=== PATIENT | female | born 1990 | race Caucasian/White ===

== ENCOUNTER 2019-10-20 13:51 | Emergency (ER) | payer SELFPAY ==
[~2019-10-20 13:51] MED LIST: KETAMINE HCL 500 MG/5 ML VIAL ONE
[2019-10-20] MEDS ORDERED: NA CHLORIDE 0.9% 1,000 ML ONE ×2 (14:16→16:45)
[2019-10-20] MEDS ORDERED: LORazepam 2 MG/ML VIAL ONE ×2 (14:32→14:43)
[2019-10-20 14:34] LABS: Absolute Lymphocytes (CBC) 2.2 K/uL (0.7-4.9); Basophils % 0.8 % (0-1.3); Hematocrit 42.5 % (36.0-45.0); Lymphocytes % 16.5 % (15.3-44.8); MPV 7.8 fL (7.6-11.3); RBC Red Blood Cell Count 4.82 M/uL (3.86-4.86)
[2019-10-20 14:38] LABS: Protime INR 1.28
[2019-10-20] MEDS ORDERED: HALOPERIDOL LACT 5 MG/ML INJ ONE (14:43)
[2019-10-20] MEDS ORDERED: DIPHENHYDRAMINE 50 MG/ML VIAL ONE (14:44)
[2019-10-20 15:32] LABS: ALT/SGPT 27 U/L (12-78); AST/SGOT 23 U/L (15-37); Albumin 4.3 g/dL (3.4-5.0); Alkaline Phosphatase 100 U/L (45-117); BUN Blood Urea Nitrogen 14 mg/dL (7-18); Bicarbonate 22 mmol/L (21-32); Bilirubin Direct 0.2 mg/dL (0-0.2); Bilirubin Total 0.9 mg/dL (0.2-1.0); Glucose Level 101 mg/dL (74-106); Potassium 3.4 mmol/L (3.5-5.1); Protein, Total 7.8 g/dL (6.4-8.2); Sodium Level 142 mmol/L (136-145)
--- NOTE | 2019-10-20 15:35 | EKG ---
Test Date: 2019-10-20 Test Time: 14:04:32 Rehab Physician: NETTA MEASUREMENT RESULTS: Intervals: Rate: 135 MI: 146 QRSD: 78 QT: 294 QTc: 441 [place]ila: P: 81 MI: 146 QRS: 70 T: 50 INTERPRETIVE STATEMENTS: Sinus tachycardia Possible Left atrial enlargement Borderline ECG No previous ECG available for comparison Electronically Signed On 10-20-19 15:34:50 ADDRESSOGRAPH OPERATOR by Gagandeep Gonzalez
[2019-10-20 15:50] LABS: Barbiturates NEGATIVE (NEGATIVE); Benzodiazepines NEGATIVE (NEGATIVE); Cocaine NEGATIVE (NEGATIVE); METHAMPHETAM POSITIVE (NEGATIVE); Methadone NEGATIVE (NEGATIVE); Opiates NEGATIVE (NEGATIVE); Phencyclidine NEGATIVE (NEGATIVE); THC Cannibis POSITIVE (NEGATIVE)
[2019-10-20 18:18] LABS: Urine Blood TRACE (NEG); Urine Glucose NEGATIVE (NEG); Urine Protein 2+ (NEG); Urine Specific Gravity >1.030 (1.005-1.030)
--- NOTE | 2019-10-20 22:44 | ER ---
Nurse's Notes [facility] Name: Jewels Webber Age: 29 yrs Sex: Female : 1990 Arrival Date: 10/20/2019 Time: 14:04 Bed 3 Private MD: Diagnosis: Restlessness and agitation;Adverse effect of amphetamines;Drug intoxication Presentation: 10/20 14:07 Presenting complaint: EMS states: Was found walking around [place], taking off clothing, ph speaking incoherently, combative for EMS and PD, father reports that [facility], pt stated to EMS that she used an unknown substance that she "found" in a vial. Combative upon arrival. Transition of care: patient was not received from another setting of care. Onset of symptoms was October 20, 2019. Risk Assessment: Do you want to hurt yourself or someone else? Unable to obtain. Initial Sepsis Screen: Does the patient meet any 2 criteria? No. Patient's initial sepsis screen is negative. Does the patient have a suspected source of infection? No. Patient's initial sepsis screen is negative. Care prior to arrival: None. 14:07 Method Of Arrival: EMS: [place] [facility] ph 14:07 Acuity: DANIEL 2 ph INFORMATION TECHNOLOGY AUDITOR: 19:20 unable to obtain rr5 Historical: - Allergies: 14:14 No Known Drug Allergies; ph - PMHx: 14:14 Ovarian cyst; ph - Immunization history:: Adult Immunizations unknown. - Coronavirus screen:: The patient has NOT traveled to [place] in the past 14 days. The patient has NOT had contact with known/suspected case of Coronavirus?. - Social history:: Smoking status: unknown. - Ebola Screening: : No symptoms or risks identified at this time. Screenin:49 Abuse screen: Denies threats or abuse. Denies injuries from another. Nutritional ph screening: No deficits noted. Tuberculosis screening: No symptoms or risk factors identified. Fall Risk None identified. Assessment: 13:55 Reassessment: Pt combative, yelling, cursing, and attempting to punch ED staff, [place] ph PD at bedside, sedative administered IM, see MAR, pt placed in 4 point restraints. 14:00 General: Appears in no apparent distress. Behavior is agitated, anxious, combative, ph fussy, uncooperative. Pain: Unable to use pain scale. Does not appear to understand pain scale. Neuro: Level of Consciousness is awake, alert, Oriented to person. Cardiovascular: Capillary refill < 3 seconds in bilateral fingers Patient's skin is warm and dry. Rhythm is sinus tachycardia. Respiratory: Airway is patent Respiratory effort is even, unlabored, Respiratory pattern is regular, symmetrical. Derm: Skin is healthy with good turgor, is fragile, Skin is pink, warm \\T\\ dry. Musculoskeletal: Circulation, motion, and sensation intact. Range of motion: intact in all extremities. 14:35 Reassessment: Patient appears in no apparent distress at this time. Pt remains ph combative, attempting to remove restraints, ERP at bedside, additional medication ordered, see MAR. 14:45 Reassessment: Patient appears in no apparent distress at this time. Patient and/or ph family updated on plan of care and expected duration. Pain level reassessed. Father at bedside, states, " She was gone all night last night, today she was saying that she felt like she was going crazy." Denies of any known psychiatric hx, reports that [facility]. Pt remains combative after IV medication, attempting to slide to bottom of bed, removing EKG leads and BP cuff, attempting to remove wrist restraints, verbal order received for additional medications, see MAR. 15:00 Reassessment: Patient appears in no apparent distress at this time. Patient and/or ph family updated on plan of care and expected duration. Pain level reassessed. Pt more calm and cooperative, straight cathed to obtain urine for UDS, tolerated well, VS stable w/ HR decreased to 103, awaiting lab results, restraints remain in place, will continue to monitor. 15:50 Reassessment: Patient appears in no apparent distress at this time. Patient and/or ph family updated on plan of care and expected duration. Pain level reassessed. Pt asleep w/ equal and unlabored respirations, VSS, will continue to monitor. 16:27 Reassessment: Patient appears in no apparent distress at this time. No changes from ph previously documented assessment. Patient and/or family updated on plan of care and expected duration. Pain level reassessed. 17:44 Reassessment: Patient appears in no apparent distress at this time. No changes from ph previously documented assessment. Patient and/or family updated on plan of care and expected duration. Pain level reassessed. 19:06 Reassessment: Patient appears in no apparent distress at this time. No changes from ph previously documented assessment. Patient and/or family updated on plan of care and expected duration. Pain level reassessed. 19:20 General: Appears in no apparent distress. Behavior is quiet, not aggressive, resting rr5 eyes closed. awaiting to fully wake up, for discharge.. Pain: Unable to use pain scale. Patient appears quiet. Neuro: Level of Consciousness is respond to stimuli, drowsy. Cardiovascular: Capillary refill < 3 seconds Patient's skin is warm and dry. Respiratory: Airway is patent Respiratory effort is even, unlabored, Respiratory pattern is regular, symmetrical. GI: Abdomen is round non-distended. : unable to assess. EENT:. Derm: Skin is intact, is healthy with good turgor, is fragile, Skin is pink, warm \\T\\ dry. Musculoskeletal: Capillary refill < 3 seconds. 20:51 Reassessment: Patient appears in no apparent distress at this time. No changes from rr5 previously documented assessment. 21:35 Reassessment: Patient appears in no apparent distress at this time. No changes from rr5 previously documented assessment. patient is drowsy. vitally stable. 22:48 Reassessment: Patient appears in no apparent distress at this time. Patient and/or rr5 family updated on plan of care and expected duration. Pain level reassessed. Patient is alert, oriented x 3, equal unlabored respirations, skin warm/dry/pink. reassess by Zafar LEASE ADMINISTRATION SUPERVISOR, patient is awake alert, GCS 15/15, calm cooperative, vitally stable, patient verbalized no suicidal thoughts or want to hurt somebody. Ed provider with order for discharge. Mr hagan (father) spoke over the phone for patients transport. [phone]. 22:54 Reassessment: Patient appears in no apparent distress at this time. Patient is alert, rr5 oriented x 3, equal unlabored respirations, skin warm/dry/pink. discharge instruction given and explained without complaints made. assisted by patient's father for her ride home. Vital Signs: 14:12 BP 157 / 92; Pulse 127; Resp 14; Temp 98.9(TE); Pulse Ox 94% on R/A; Weight 77.11 kg; ph 15:05 BP 130 / 76; Pulse 107; Resp 14; Pulse Ox 97% on 2 lpm NC; ph 15:50 BP 130 / 83; Pulse 104; Resp 16; Pulse Ox 98% on 2 lpm NC; ph 16:28 BP 120 / 83; Pulse 98; Resp 16; Pulse Ox 99% on 2 lpm NC; ph 17:44 BP 132 / 87; Pulse 83; Resp 18; Pulse Ox 98% on 2 lpm NC; ph 18:45 BP 128 / 83; Pulse 88; Resp 18; Pulse Ox 97% on 2 lpm NC; ph 19:20 BP 127 / 71; Pulse 94; Resp 16; Temp 98.5; Pulse Ox 99% on 2 lpm NC; rr5 20:00 BP 116 / 85; Pulse 85; Resp 19; Pulse Ox 99% on 2 lpm NC; rr5 20:51 BP 125 / 76; Pulse 76; Resp 17; Pulse Ox 97% on 2 lpm NC; rr5 22:00 BP 121 / 70; Pulse 79; Resp 15; Pulse Ox 99% on 2 lpm NC; rr5 22:59 BP 126 / 79; Pulse 83; Resp 15; Temp 98; Pulse Ox 100% on R/A; rr5 Shayla Coma Score: 15:12 Eye Response: spontaneous(4). Verbal Response: confused(4). Motor Response: obeys jr8 commands(6). Total: 14. ED Course: 13:55 Inserted saline lock: 20 gauge in right hand, using aseptic technique. Line d/c by pt, ph bleeding controlled, IV appears intact. 14:04 Patient arrived in ED. bd 14:04 Jose Barlow PA is PHCP. jr8 14:04 Bao Cook MD is Attending Physician. jr8 14:05 Inserted saline lock: 20 gauge in left antecubital area, using aseptic technique. ph 14:06 Alie Mckeon, RN is Primary Nurse. ph 14:11 Triage completed. ph 14:55 Straight cath inserted, using sterile technique, 16 Fr. Specimen obtained. Returned ph rosi urine. Patient tolerated well. 15:49 Arm band placed on Patient placed in an exam room. ph 15:50 Patient has correct armband on for positive identification. Bed in low position. Side ph rails up X2. school bus monitor on. Pulse ox on. NIBP on. Lights dimmed. Warm blanket given. Head of bed lowered. 16:04 No provider procedures requiring assistance completed. ph 22:48 IV discontinued, intact, bleeding controlled, No redness/swelling at site. Pressure rr5 dressing applied. Restraints: 14:00 Violent/Self Destructive Restraint: Order: obtained. Initiated October 20, 2019 at ph 14:00 Staff present during the Initiation of Restraint: Alie Mckeon RN, Maria Eugenia Parry RN, Ayaz Lutz [facility], Jose LOPEZ. Observed actions/behavior: violent, severely aggressive, harming self/others, confusion/disorientation, difficulty remembering or follow instructions, impaired decision making, repeated attempts to get up from bed/chair without assistance. unable to follow instructions, rptd attempts to remove/tamper lines/tubes/IV/med devices \\T\\ wnd dressing, verbally abusive, Less restrictive alternatives attempted: placed near Nurse station, reoriented to location, verbal de-escalation performed, Alternative interventions: Ineffective. Monitoring: Mental status: agitated/restless, verbally abusive, Cognition: poor judgement, poor safety awareness, Impulsive, poor attention/concentration, unable to follow commands, Circulation: Within defined parameters (based on Cardiovascular assessment). Skin integrity: Within defined parameters (based on Integumentary assessment) No injuries due to Restraints noted. Restraint status: Side rails up x 4 Started. Soft wrist restraint (Right) Started. Soft wrist restraint (Left) Started. Soft ankle restraint (Right) Started. Soft ankle restraint (Left) Started. 14:15 Violent/Self Destructive Restraint: Observed actions/behavior: harming self/others, ph confusion/disorientation, difficulty remembering or follow instructions, impaired decision making, repeated attempts to get up from bed/chair without assistance. unable to follow instructions, rptd attempts to remove/tamper lines/tubes/IV/med devices \\T\\ wnd dressing, verbally abusive, Monitoring: Mental status: agitated/restless, confused. verbally abusive, Cognition: poor judgement, poor safety awareness, Impulsive, poor attention/concentration, unable to follow commands, Circulation: Within defined parameters (based on Cardiovascular assessment). Skin integrity: Within defined parameters (based on Integumentary assessment) No injuries due to Restraints noted. Restraint status: Side rails up x 4 Continued. Soft wrist restraint (Right) Soft wrist restraint (Left) Continued. Soft ankle restraint (Right) Continued. Soft ankle restraint (Left) Continued. Readiness for Discontinue: Criteria not met. Patient still violent/self destructive and Alternative interventions still ineffective. Restraint continued. 14:30 Violent/Self Destructive Restraint: Observed actions/behavior: harming self/others, ph confusion/disorientation, difficulty remembering or follow instructions, impaired decision making, repeated attempts to get up from bed/chair without assistance. unable to follow instructions, rptd attempts to remove/tamper lines/tubes/IV/med devices \\T\\ wnd dressing, verbally abusive, Monitoring: Mental status: agitated/restless, confused. verbally abusive, Cognition: poor judgement, poor safety awareness, Impulsive, poor attention/concentration, unable to follow commands, Circulation: Within defined parameters (based on Cardiovascular assessment). Skin integrity: Within defined parameters (based on Integumentary assessment) No injuries due to Restraints noted. Restraint status: Side rails up x 4 Soft wrist restraint (Right) Continued. Soft wrist restraint (Left) Continued. Soft ankle restraint (Right) Continued. Soft ankle restraint (Left) Continued. Readiness for Discontinue: Criteria not met. Patient still violent/self destructive and Alternative interventions still ineffective. Restraint continued. 14:45 Violent/Self Destructive Restraint: Observed actions/behavior: harming self/others, ph confusion/disorientation, difficulty remembering or follow instructions, impaired decision making, repeated attempts to get up from bed/chair without assistance. unable to follow instructions, rptd attempts to remove/tamper lines/tubes/IV/med devices \\T\\ wnd dressing, Less restrictive alternatives attempted: family at bedside, medicated for pain/anxiety, covered lines/tubes, verbal de-escalation performed, Alternative interventions: Ineffective. Monitoring: Cognition: poor judgement, poor safety awareness, Impulsive, poor attention/concentration, unable to follow commands, Circulation: Within defined parameters (based on Cardiovascular assessment). Skin integrity: Within defined parameters (based on Integumentary assessment) No injuries due to Restraints noted. Restraint status: Soft wrist restraint (Right) Continued. Soft wrist restraint (Left) Continued. Soft ankle restraint (Right) Continued. Soft ankle restraint (Left) Continued. Readiness for Discontinue: Criteria not met. Patient still violent/self destructive and Alternative interventions still ineffective. Restraint continued. 15:00 Violent/Self Destructive Restraint: Observed actions/behavior: ph confusion/disorientation, difficulty remembering or follow instructions, impaired decision making, repeated attempts to get up from bed/chair without assistance. unable to follow instructions, Less restrictive alternatives attempted: medicated for pain/anxiety, Monitoring: Cognition: poor safety awareness, poor attention/concentration, unable to follow commands, short term memory loss, Circulation: Within defined parameters (based on Cardiovascular assessment). Skin integrity: Within defined parameters (based on Integumentary assessment) No injuries due to Restraints noted. Range of Motion: Performed. Elimination/Hygiene: with urinary catheter, Restraint status: Soft wrist restraint (Right) Continued. Soft wrist restraint (Left) Continued. Soft ankle restraint (Right) Continued. Soft ankle restraint (Left) Continued. Readiness for Discontinue: Criteria not met. Patient still violent/self destructive and Alternative interventions still ineffective. Restraint continued. 15:15 Violent/Self Destructive Restraint: Observed actions/behavior: ph confusion/disorientation, difficulty remembering or follow instructions, impaired decision making, unable to follow instructions, Monitoring: Cognition: poor judgement, poor safety awareness, poor attention/concentration, unable to follow commands, short term memory loss, Circulation: Within defined parameters (based on Cardiovascular assessment). Skin integrity: Within defined parameters (based on Integumentary assessment) No injuries due to Restraints noted. Restraint status: Soft wrist restraint (Right) Continued. Soft wrist restraint (Left) Continued. Soft ankle restraint (Right) Continued. Soft ankle restraint (Left) Continued. Readiness for Discontinue: Criteria not met. Patient still violent/self destructive and Alternative interventions still ineffective. Restraint continued. 15:30 Violent/Self Destructive Restraint: Observed actions/behavior: ph confusion/disorientation, difficulty remembering or follow instructions, impaired decision making, unable to follow instructions, Monitoring: Cognition: poor judgement, poor safety awareness, poor attention/concentration, unable to follow commands, short term memory loss, Circulation: Within defined parameters (based on Cardiovascular assessment). Skin integrity: Within defined parameters (based on Integumentary assessment) No injuries due to Restraints noted. Restraint status: Readiness for Discontinue: Criteria not met. Patient still violent/self destructive and Alternative interventions still ineffective. Restraint continued. 15:45 Violent/Self Destructive Restraint: Observed actions/behavior: ph confusion/disorientation, difficulty remembering or follow instructions, impaired decision making, decreased Level of Consciousness (LOC), unable to follow instructions, Monitoring: Mental status: patient asleep, Circulation: Within defined parameters (based on Cardiovascular assessment). Skin integrity: Within defined parameters (based on Integumentary assessment) No injuries due to Restraints noted. Restraint status: Soft wrist restraint (Right) Continued. Soft wrist restraint (Left) Continued. Soft ankle restraint (Right) Continued. Soft ankle restraint (Left) Continued. Readiness for Discontinue: Criteria not met. Patient still violent/self destructive and Alternative interventions still ineffective. Restraint continued. 16:00 Violent/Self Destructive Restraint: Observed actions/behavior: ph confusion/disorientation, decreased Level of Consciousness (LOC), unable to follow instructions, Monitoring: Mental status: patient asleep, Circulation: Within defined parameters (based on Cardiovascular assessment). Skin integrity: Within defined parameters (based on Integumentary assessment) No injuries due to Restraints noted. Restraint status: Soft wrist restraint (Right) Continued. Soft wrist restraint (Left) Continued. Soft ankle restraint (Right) Continued. Soft ankle restraint (Left) Continued. Readiness for Discontinue: Criteria not met. Patient still violent/self destructive and Alternative interventions still ineffective. Restraint continued. 16:15 Violent/Self Destructive Restraint: Observed actions/behavior: ph confusion/disorientation, difficulty remembering or follow instructions, decreased Level of Consciousness (LOC), Monitoring: Mental status: patient asleep, Circulation: Within defined parameters (based on Cardiovascular assessment). Skin integrity: Within defined parameters (based on Integumentary assessment) No injuries due to Restraints noted. Restraint status: Soft wrist restraint (Right) Continued. Soft wrist restraint (Left) Continued. Soft ankle restraint (Right) Continued. Soft ankle restraint (Left) Continued. Readiness for Discontinue: Criteria not met. Patient still violent/self destructive and Alternative interventions still ineffective. Restraint continued. 16:30 Violent/Self Destructive Restraint: Observed actions/behavior: ph confusion/disorientation, decreased Level of Consciousness (LOC), Monitoring: Mental status: patient asleep, Circulation: Within defined parameters (based on Cardiovascular assessment). Skin integrity: Within defined parameters (based on Integumentary assessment) No injuries due to Restraints noted. Restraint status: Soft wrist restraint (Right) Continued. Soft wrist restraint (Left) Continued. Soft ankle restraint (Right) Continued. Soft ankle restraint (Left) Continued. Readiness for Discontinue: Criteria not met. Patient still violent/self destructive and Alternative interventions still ineffective. Restraint continued. 16:45 Violent/Self Destructive Restraint: Observed actions/behavior: ph confusion/disorientation, impaired decision making, decreased Level of Consciousness (LOC), Monitoring: Mental status: patient asleep, Circulation: Within defined parameters (based on Cardiovascular assessment). Skin integrity: Within defined parameters (based on Integumentary assessment) No injuries due to Restraints noted. Restraint status: Soft wrist restraint (Right) Continued. Soft wrist restraint (Left) Continued. Soft ankle restraint (Right) Continued. Soft ankle restraint (Left) Continued. Readiness for Discontinue: Criteria not met. Patient still violent/self destructive and Alternative interventions still ineffective. Restraint continued. 17:00 Violent/Self Destructive Restraint: Observed actions/behavior: ph confusion/disorientation, decreased Level of Consciousness (LOC), Monitoring: Mental status: patient asleep, Circulation: Within defined parameters (based on Cardiovascular assessment). Skin integrity: Within defined parameters (based on Integumentary assessment) No injuries due to Restraints noted. Restraint status: Soft wrist restraint (Right) Continued. Soft wrist restraint (Left) Continued. Soft ankle restraint (Right) Continued. Soft ankle restraint (Left) Continued. Readiness for Discontinue: Criteria not met. Patient still violent/self destructive and Alternative interventions still ineffective. Restraint continued. 17:15 Violent/Self Destructive Restraint: Observed actions/behavior: ph confusion/disorientation, decreased Level of Consciousness (LOC), Monitoring: Mental status: patient asleep, Circulation: Within defined parameters (based on Cardiovascular assessment). Skin integrity: Within defined parameters (based on Integumentary assessment) No injuries due to Restraints noted. Restraint status: Soft wrist restraint (Right) Continued. Soft wrist restraint (Left) Continued. Soft ankle restraint (Right) Continued. Soft ankle restraint (Left) Continued. 17:30 Violent/Self Destructive Restraint: Violent/Self Destructive Restraint: Monitoring: ph Mental status: patient asleep, Restraint status: Soft wrist restraint (Right) Discontinued. Soft wrist restraint (Left) Discontinued. Soft ankle restraint (Right) Discontinued. Soft ankle restraint (Left) Discontinued. Restraint discontinuation: Discontinued at October 20, 2019 at 17:30 Effective alternative interventions: decrease environmental stimuli, medicated for pain/anxiety. Administered Medications: 13:55 Drug: Ketamine 4 mg/kg Route: IM; Site: right vastus lateralis; ph 14:30 Follow up: Response: Anxiety decreased ph 17:30 Follow up: Response: No adverse reaction ph 14:18 Drug: NS 0.9% 1000 ml Route: IV; Rate: 1000 ml; Site: left antecubital; ll1 16:15 Follow up: Response: No adverse reaction; IV Status: Completed infusion; IV Intake: ph 1000ml 14:30 Drug: Ativan 2 mg Route: IVP; Site: left antecubital; ph 17:30 Follow up: Response: No adverse reaction ph 14:45 Drug: Ativan 2 mg Route: IVP; Site: left antecubital; ph 17:34 Follow up: Response: No adverse reaction ph 14:45 Drug: Haloperidol 5 mg Route: IVP; Site: left antecubital; ph 17:34 Follow up: Response: No adverse reaction; Patient is sedated ph 14:45 Drug: Benadryl 25 mg Route: IVP; Site: left antecubital; ph 17:34 Follow up: Response: No adverse reaction ph 16:50 Drug: NS 0.9% 1000 ml Route: IV; Rate: 1000 ml; Site: left antecubital; ph 20:20 Follow up: Response: No adverse reaction; IV Status: Completed infusion; IV Intake: rr5 1000ml Intake: 16:15 IV: 1000ml; Total: 1000ml. ph 20:20 IV: 1000ml; Total: 2000ml. rr5 Outcome: 22:42 Discharge ordered by MD. la1 22:57 Discharged to home ambulatory, with family. rr5 22:57 Condition: stable 22:57 Discharge instructions given to patient, Instructed on discharge instructions, follow up and referral plans. Demonstrated understanding of instructions, follow-up care. 23:00 Patient left the ED. rr5 Signatures: Gena Han Josh, PA PA jr8 Zafar Mcqueen, MEDICAL RESEARCH SCIENTIST-C MEDICAL RESEARCH SCIENTIST-Cla1 Alie Mckeon RN RN ph Rolly Goss RN RN rr5 Mady Parry RN RN ll1 Corrections: (The following items were deleted from the chart) 16:35 15:45 Violent/Self Destructive Restraint: Observed actions/behavior: ph confusion/disorientation, difficulty remembering or follow instructions, impaired decision making, unable to follow instructions, Monitoring: Cognition: poor judgement, poor safety awareness, poor attention/concentration, unable to follow commands, short term memory loss, Circulation: Within defined parameters (based on Cardiovascular assessment). Skin integrity: Within defined parameters (based on Integumentary assessment) No injuries due to Restraints noted. Restraint status: Soft wrist restraint (Right) Continued. Soft wrist restraint (Left) Continued. Soft ankle restraint (Right) Continued. Soft ankle restraint (Left) Continued. Readiness for Discontinue: Criteria not met. Patient still violent/self destructive and Alternative interventions still ineffective. Restraint continued. ph 17:43 15:00 Violent/Self Destructive Restraint: Observed actions/behavior: ph confusion/disorientation, difficulty remembering or follow instructions, impaired decision making, repeated attempts to get up from bed/chair without assistance. unable to follow instructions, Less restrictive alternatives attempted: medicated for pain/anxiety, Monitoring: Cognition: poor safety awareness, poor attention/concentration, unable to follow commands, short term memory loss, Circulation: Within defined parameters (based on Cardiovascular assessment). Skin integrity: Within defined parameters (based on Integumentary assessment) No injuries due to Restraints noted. Restraint status: Soft wrist restraint (Right) Continued. Soft wrist restraint (Left) Continued. Soft ankle restraint (Right) Continued. Soft ankle restraint (Left) Continued. Readiness for Discontinue: Criteria not met. Patient still violent/self destructive and Alternative interventions still ineffective. Restraint continued. ph 20:52 20:51 BP 125 / 276; Pulse 76bpm; Resp 17bpm; Pulse Ox 97% 7 lpm Nasal Cannula; rr5 rr5 23:00 20:51 BP 125 / 76; Pulse 76bpm; Resp 17bpm; Pulse Ox 97% 7 lpm Nasal Cannula; rr5 rr5
--- NOTE | 2019-10-20 22:44 | EDPHYS ---
Physician Documentation [facility] Name: Jewels Webber Age: 29 yrs Sex: Female : 1990 Arrival Date: 10/20/2019 Time: 14:04 Bed 3 Private MD: ED Physician Bao Cook HPI: 10/20 15:12 This 29 yrs old Female presents to ER via EMS with complaints of Altered jr8 Mental Status. 15:12 The patient presents with agitation, confusion, disorientation. Onset: The jr8 symptoms/episode began/occurred acutely, today. Possible causes: unknown. Associated signs and symptoms: The patient has no apparent associated signs or symptoms. Current symptoms: In the emergency department the patient's symptoms are unchanged from the initial presentation. Patient's baseline: Neuro: alert and fully oriented, Motor: no deficits, Ambulation: walks without assistance, Speech: normal. It is unknown whether or not the patient has had similar symptoms in the past. The patient has not recently seen a physician. EMS brought patient to hospital in custody with police for erratic violent behavior. Was found walking around on outside street undressing herself. Father stated that she has history of drug abuse in past. Stated that she was just released from jail after being in there for a year. Stated that she had told him recently that she feels different and is hearing things and feels "crazy:". . AUTHORS MOTIVATIONAL: 19:20 unable to obtain rr5 Historical: - Allergies: 14:14 No Known Drug Allergies; ph - PMHx: 14:14 Ovarian cyst; ph - Immunization history:: Adult Immunizations unknown. - Coronavirus screen:: The patient has NOT traveled to [place] in the past 14 days. The patient has NOT had contact with known/suspected case of Coronavirus?. - Social history:: Smoking status: unknown. - Ebola Screening: : No symptoms or risks identified at this time. ROS: 15:12 Unable to obtain ROS due to altered mental status. jr8 Exam: 15:12 Eyes: Pupils equal round and reactive to light, extra-ocular motions intact. Lids and jr8 lashes normal. Conjunctiva and sclera are non-icteric and not injected. Cornea within normal limits. Periorbital areas with no swelling, redness, or edema. ENT: Nares patent. No nasal discharge, no septal abnormalities noted. Tympanic membranes are normal and external auditory canals are clear. Oropharynx with no redness, swelling, or masses, exudates, or evidence of obstruction, uvula midline. Mucous membranes dry. Cardiovascular: Tachycardic with a normal S1 and S2. No gallops, murmurs, or rubs. Normal PMI, no JVD. No pulse deficits. Respiratory: Lungs have equal breath sounds bilaterally, clear to auscultation and percussion. No rales, rhonchi or wheezes noted. No increased work of breathing, no retractions or nasal flaring. Abdomen/GI: Soft, non-tender, with normal bowel sounds. No distension or tympany. No guarding or rebound. No evidence of tenderness throughout. Back: No spinal tenderness. No costovertebral tenderness. Full range of motion. Skin: Warm, dry with normal turgor. Normal color with no rashes, no lesions, and no evidence of cellulitis. MS/ Extremity: Pulses equal, no cyanosis. Neurovascular intact. Full, normal range of motion. 15:12 Neuro: Orientation: to person, Mentation: able to follow commands, inappropriate for stated age, Memory: immediate memory is intact, remote memory is impaired, recent memory is impaired, Cranial nerves: grossly normal, Motor: moves all fours, Sensation: no obvious gross deficits, seizure activity, is not displayed by the patient, Abnormal movements: there are no abnormal movements. 15:35 ECG was reviewed by the Attending Physician. jr8 Vital Signs: 14:12 BP 157 / 92; Pulse 127; Resp 14; Temp 98.9(TE); Pulse Ox 94% on R/A; Weight 77.11 kg; ph 15:05 BP 130 / 76; Pulse 107; Resp 14; Pulse Ox 97% on 2 lpm NC; ph 15:50 BP 130 / 83; Pulse 104; Resp 16; Pulse Ox 98% on 2 lpm NC; ph 16:28 BP 120 / 83; Pulse 98; Resp 16; Pulse Ox 99% on 2 lpm NC; ph 17:44 BP 132 / 87; Pulse 83; Resp 18; Pulse Ox 98% on 2 lpm NC; ph 18:45 BP 128 / 83; Pulse 88; Resp 18; Pulse Ox 97% on 2 lpm NC; ph 19:20 BP 127 / 71; Pulse 94; Resp 16; Temp 98.5; Pulse Ox 99% on 2 lpm NC; rr5 20:00 BP 116 / 85; Pulse 85; Resp 19; Pulse Ox 99% on 2 lpm NC; rr5 20:51 BP 125 / 76; Pulse 76; Resp 17; Pulse Ox 97% on 2 lpm NC; rr5 22:00 BP 121 / 70; Pulse 79; Resp 15; Pulse Ox 99% on 2 lpm NC; rr5 22:59 BP 126 / 79; Pulse 83; Resp 15; Temp 98; Pulse Ox 100% on R/A; rr5 Shayla Coma Score: 15:12 Eye Response: spontaneous(4). Verbal Response: confused(4). Motor Response: obeys jr8 commands(6). Total: 14. MDM: 14:04 Patient medically screened. 8 18:02 Data reviewed: vital signs, nurses notes, lab test result(s), EKG. Data interpreted: jr8 Pulse oximetry: on room air is 98 %. Interpretation: normal. Counseling: I had a detailed discussion with the patient and/or guardian regarding: the historical points, exam findings, and any diagnostic results supporting the discharge/admit diagnosis, lab results. Transition of care: After a detail discussion of the patient's case, care is transferred to Zafar TURK. ED course: Patient resting comfortably after being medicated to control agitation and acute psychosis. Patient had both TCH and Meth in UDS. Most likely stimulant associated acute psychosis. Will continue to be observed in ED for now. 22:45 ED course: pt now awake, alert, oriented x 4, denies HI/SI, reports that this kind of la1 episode has happened in the past. States she is sure its not from the amphetamines or THC, instructed to FU with neuro/psych. Strict return precautions given, no focal neurological deficits. . 10/20 14:05 Order name: Acetaminophen 10/20 14:05 Order name: Basic Metabolic Panel 10/20 14:05 Order name: CBC with Diff 10/20 14:05 Order name: ETOH Level 10/20 14:05 Order name: Hepatic Function 10/20 14:05 Order name: PT-INR 10/20 14:05 Order name: Ptt, Activated 10/20 14:05 Order name: Salicylate [facility] 10/20 14:05 Order name: Urine Drug Screen [facility] 10/20 14:35 Order name: CBC with Automated Diff; Complete Time: 15:08 [facility] 10/20 14:44 Order name: Protime (+INR); Complete Time: 15:08 [facility] 10/20 14:44 Order name: PTT, Activated Partial Thromb; Complete Time: 15:08 [facility] 10/20 14:57 Order name: Alcohol Serum/Plasma [facility] 10/20 15:04 Order name: Urine Dipstick--Ancillary (enter results) 10/20 15:04 Order name: Urine --Ancillary (enter results) 10/20 15:49 Order name: Basic Metabolic Panel; Complete Time: 17:50 [facility] 10/20 15:50 Order name: Liver (Hepatic) Function; Complete Time: 17:50 [facility] 10/20 15:51 Order name: Acetaminophen Level; Complete Time: 17:50 [facility] 10/20 15:53 Order name: Salicylates Level; Complete Time: 17:50 [facility] 10/20 15:54 Order name: Urine Drug Screen; Complete Time: 16:27 [facility] 10/20 18:20 Order name: Urine --Ancillary [facility] 10/20 18:20 Order name: Urine Dipstick-Ancillary [facility] 10/20 14:05 Order name: Urine Test (obtain specimen); Complete Time: 15:04 [facility] 10/20 14:05 Order name: EKG - Nurse/Tech; Complete Time: 14:18 [facility] 10/20 14:05 Order name: IV Saline Lock; Complete Time: 14:30 [facility] 10/20 14:05 Order name: Labs collected and sent; Complete Time: 14:30 [facility] 10/20 14:05 Order name: Urine Dipstick-Ancillary (obtain specimen); Complete Time: 15:04 [facility] 10/20 18:07 Order name: EKG Electrocardiogram EDVT EC:35 Rate is 135 beats/min. Rhythm is irregular, Sinus tachycardia with No ectopy. QRS [facility] is Normal. MA interval is normal at 146 msec. QRS interval is normal at 78 msec. QT interval is normal at 441 msec. No Q waves. T waves are Normal. No ST changes noted. Clinical impression: Sinus tachycardia and No evidence of ischemia. Interpreted by me. Reviewed by me. Administered Medications: 13:55 Drug: Ketamine 4 mg/kg Route: IM; Site: right vastus lateralis; ph 14:30 Follow up: Response: Anxiety decreased ph 17:30 Follow up: Response: No adverse reaction ph 14:18 Drug: NS 0.9% 1000 ml Route: IV; Rate: 1000 ml; Site: left antecubital; ll1 16:15 Follow up: Response: No adverse reaction; IV Status: Completed infusion; IV Intake: ph 1000ml 14:30 Drug: Ativan 2 mg Route: IVP; Site: left antecubital; ph 17:30 Follow up: Response: No adverse reaction ph 14:45 Drug: Ativan 2 mg Route: IVP; Site: left antecubital; ph 17:34 Follow up: Response: No adverse reaction ph 14:45 Drug: Haloperidol 5 mg Route: IVP; Site: left antecubital; ph 17:34 Follow up: Response: No adverse reaction; Patient is sedated ph 14:45 Drug: Benadryl 25 mg Route: IVP; Site: left antecubital; ph 17:34 Follow up: Response: No adverse reaction ph 16:50 Drug: NS 0.9% 1000 ml Route: IV; Rate: 1000 ml; Site: left antecubital; ph 20:20 Follow up: Response: No adverse reaction; IV Status: Completed infusion; IV Intake: rr5 1000ml Disposition: 19:13 Co-signature as Attending Physician, Bao Cook MD I agree with the assessment and kdr plan of care. Disposition: 10/20/19 22:42 Discharged to Home. Impression: Restlessness and agitation, Adverse effect of amphetamines, Drug intoxication. - Condition is Stable. - Discharge Instructions: Confusion, Stimulant Use Disorder-Methamphetamines. - Medication Reconciliation Form, Thank You Letter form. - Follow up: Private Physician; When: 1 - 2 days; Reason: Recheck today's complaints, Re-evaluation by your physician. Follow up: Emergency Department; When: As needed. - Problem is new. - Symptoms have improved. Signatures: Dispatcher [employer] EDMS Bao Cook MD MD kdr Roszak, Josh, PA PA jr8 Zafar Mcqueen, CHURN TENDER-C CHURN TENDER-Cla1 Alie Mckeon RN RN ph Rolly Goss RN RN rr5 Mady Parry RN RN ll1 Corrections: (The following items were deleted from the chart) 22:43 22:42 10/20/2019 22:42 Discharged to Home. Impression: Restlessness and agitation; la1 Adverse effect of amphetamines. Condition is Stable. Forms are Medication Reconciliation Form, Thank You Letter, Antibiotic Education, Prescription Opioid Use. Follow up: Private Physician; When: 1 - 2 days; Reason: Recheck today's complaints, Re-evaluation by your physician. Follow up: Emergency Department; When: As needed. Problem is new. Symptoms have improved. la1 23:00 22:43 10/20/2019 22:42 Discharged to Home. Impression: Restlessness and agitation; rr5 Adverse effect of amphetamines; Drug intoxication. Condition is Stable. Forms are Medication Reconciliation Form, Thank You Letter, Antibiotic Education, Prescription Opioid Use. Follow up: Private Physician; When: 1 - 2 days; Reason: Recheck today's complaints, Re-evaluation by your physician. Follow up: Emergency Department; When: As needed. Problem is new. Symptoms have improved. la1
[2019-10-20 23:27] VITALS: BP 126/79; TEMP 98; O2SAT 100
== END 2019-10-20 23:00 | disposition home or self-care (01) ==
LOC: ER 13:51
DX: R45.1 Restlessness and agitation (principal); T43.625A Adverse effect of amphetamines, initial encounter; T50.995A Adverse effect of other drugs, medicaments and biological substances, initial encounter
CPT/HCPCS: 36415; 51702; 80048; 80076; 80307; 80320; 80329; 81003; 81025; 85025; 85610; 85730; 93005; 96361; 96372; 96374; 96375; 99285; J1200; J1630; J7030

== ENCOUNTER 2020-01-18 18:13 | Emergency (ER) | payer SELFPAY ==
[2020-01-18] MEDS ORDERED: LORazepam 2 MG/ML VIAL ONE (18:30)
[2020-01-18] MEDS ORDERED: MIDAZOLAM HCL 2 MG/2 ML INJ ONE (18:42)
[2020-01-18] MEDS ORDERED: NA CHLORIDE 0.9% 2,000 ML ONE (18:42)
[2020-01-18 18:51] LABS: Absolute Lymphocytes (CBC) 2.5 K/uL (0.7-4.9); Basophils % 1.1 % (0-1.3); Hematocrit 42.4 % (36.0-45.0); Lymphocytes % 20.4 % (15.3-44.8); MPV 7.4 fL (7.6-11.3); RBC Red Blood Cell Count 4.88 M/uL (3.86-4.86)
[2020-01-18 19:02] LABS: Protime INR 1.34
--- NOTE | 2020-01-18 19:08 | RAD REPORT ---
EXAM DESCRIPTION: CT - Head Brain Wo Cont - 01/18/2020 6:59 pm CLINICAL HISTORY: AMS;Confused Headache, drowsiness COMPARISON: MAXILLOFACIAL W O CONTRAST dated 05/12/2009; HEAD BRAIN W O CONTRAST dated 12/14/2008 TECHNIQUE: All CT scans are performed using dose optimization technique as appropriate and may inclu de automated exposure control or mA/KV adjustment according to patient size. FINDINGS: No intracranial hemorrhage, hydrocephalus or extra-axial fluid collection.No areas of brai n edema or evidence of midline shift. The paranasal sinuses and mastoids are clear. The calvarium is intact. IMPRESSION: No acute intracranial abnormality.
[2020-01-18] MEDS ORDERED: DIPHENHYDRAMINE 50 MG/ML VIAL ONE (19:33)
[2020-01-18] MEDS ORDERED: HALOPERIDOL LACT 5 MG/ML INJ ONE (19:33)
[2020-01-18 19:34] LABS: ALT/SGPT 24 U/L (12-78); AST/SGOT 16 U/L (15-37); Alkaline Phosphatase 114 U/L (45-117); BUN Blood Urea Nitrogen 15 mg/dL (7-18); Bicarbonate 22 mmol/L (21-32); Bilirubin Direct 0.2 mg/dL (0-0.2); Bilirubin Total 0.4 mg/dL (0.2-1.0); Glucose Level 88 mg/dL (74-106); Protein, Total 7.6 g/dL (6.4-8.2); Sodium Level 144 mmol/L (136-145)
[2020-01-18 19:34] LABS: Barbiturates NEGATIVE (NEGATIVE); Benzodiazepines NEGATIVE (NEGATIVE); Cocaine NEGATIVE (NEGATIVE); METHAMPHETAM POSITIVE (NEGATIVE); Methadone NEGATIVE (NEGATIVE); Opiates NEGATIVE (NEGATIVE); Phencyclidine NEGATIVE (NEGATIVE); THC Cannibis POSITIVE (NEGATIVE)
[2020-01-18 21:48] LABS: Urine Blood NEGATIVE (NEG); Urine Glucose NEGATIVE (NEG); Urine Protein 1+ (NEG); Urine pH 5.5 (5.0-7.0)
[2020-01-19 12:53] VITALS: TEMP 97.6
[2020-01-19 13:01] VITALS: O2SAT 99
[2020-01-19 13:03] VITALS: BP 98/54
--- NOTE | 2020-01-24 14:05 | EDPHYS ---
Physician Documentation [facility] Name: Jewels Webber Age: 30 yrs Sex: Female : 1990 Arrival Date: 01/18/2020 Time: 18:14 Bed 3 Private MD: Eze Tamayo T ED Physician Lan Metz HPI: 01/17 18:16 This 30 yrs old Female presents to ER via Unassigned with complaints of AMS. rn 18:16 The patient presents with agitation. Onset: The symptoms/episode began/occurred just rn prior to arrival. Possible causes: drug use, unknown. Current symptoms: In the emergency department the patient's symptoms have improved. The patient has experienced similar episodes in the past. Per EMS, picked up at long term, had just been arrested, picked up from known drug house, suspecting meth. Pt was in long term agitated, spitting, not making sense, no known trauma, given ativan by EMS, did not improve, then given 150mg ketamine with improvement. Pt initially tachycardic. Nursing state has presented like this before in past. . Historical: - Allergies: 19:38 No Known Drug Allergies; ph - PMHx: 19:38 Ovarian cyst; drug abuse; ph - Immunization history:: Adult Immunizations unknown. - Family history:: not pertinent. - Social history:: Smoking status: Patient reports the use of cigarette tobacco products, smokes one pack cigarettes per day. - Hospitalizations: : No recent hospitalization is reported. ROS: 18:16 Unable to obtain ROS due to altered mental status. rn Exam: 18:16 Constitutional: This is a well developed, well nourished patient who is awake, rn sedated, responding to oral cues Head/Face: Normocephalic, atraumatic. Eyes: + nystagmus ENT: dry MM, no swelling Cardiovascular: Tachycardic, regular Respiratory: No increased work of breathing, no retractions or nasal flaring. Abdomen/GI: soft, non-tender MS/ Extremity: Pulses equal, no cyanosis. Neurovascular intact. Full, normal range of motion. Equal circumference. Neuro: Awake, sedated, moves all 4 ext, laughing but not making sense, under influence of ketamine. Vital Signs: 18:31 BP 135 / 88; Pulse 155; Resp 18; Pulse Ox 100% on R/A; ph 19:57 BP 130 / 80; Pulse 101; Resp 16; Pulse Ox 98% ; ea 20:00 BP 119 / 70; Pulse 88; Resp 18; Pulse Ox 99% on R/A; ea 21:30 BP 110 / 65; Pulse 88; Resp 18; Temp 97.6; Pulse Ox 98% ; ea 22:31 BP 105 / 66; Pulse 96; Resp 18; Pulse Ox 98% on R/A; ea 23:14 BP 118 / 76; Pulse 98; Resp 18; Pulse Ox 98% ; ea 01/18 00:50 BP 109 / 81; Pulse 82; Resp 17; Pulse Ox 98% on R/A; rv 02:14 BP 110 / 79; Pulse 90; Resp 18; Pulse Ox 98% ; ea 05:40 BP 111 / 78; Pulse 89; Resp 18; Pulse Ox 100% ; ea 06:45 BP 115 / 83; Pulse 80; Resp 18; Pulse Ox 100% ; ea 07:24 BP 114 / 77; Pulse 80; Resp 16; Pulse Ox 99% ; sv 08:20 BP 98 / 54; Pulse 84; Resp 16; Pulse Ox 99% ; sv MDM: 01/17 18:15 Patient medically screened. rn 18:58 Transition of care: After a detail discussion of the patient's case, care is rn transferred to Kadie Srivastava MD. 01/18 05:51 Differential Diagnosis: alcohol intoxication, UTI, volume depletion. Data reviewed: ma2 vital signs, nurses notes. Counseling: I had a detailed discussion with the patient and/or guardian regarding: the historical points, exam findings, and any diagnostic results supporting the discharge/admit diagnosis, the presence of at least one elevated blood pressure reading (>120/80) during this emergency department visit, the need for outpatient follow up. Response to treatment: the patient's symptoms have resolved after treatment. ED course: she is back to normal aox4. 01/17 18:15 Order name: Acetaminophen rn 01/17 18:15 Order name: Basic Metabolic Panel rn 01/17 18:15 Order name: CBC with Diff rn 01/17 18:15 Order name: ETOH Level rn 01/17 18:15 Order name: Hepatic Function rn 01/17 18:15 Order name: PT-INR rn 01/17 18:15 Order name: Ptt, Activated rn 01/17 18:15 Order name: Salicylate 01/17 18:15 Order name: Urine Drug Screen 01/17 18:15 Order name: CT Head Brain wo Cont 01/17 18:42 Order name: Urine Dipstick--Ancillary (enter results) 01/17 18:42 Order name: Urine --Ancillary (enter results) 01/17 18:15 Order name: Urine Test (obtain specimen); Complete Time: 19:06 01/17 18:15 Order name: IV Saline Lock; Complete Time: 18:31 rn 01/17 18:15 Order name: Labs collected and sent; Complete Time: 19:06 rn 01/17 18:15 Order name: Urine Dipstick-Ancillary (obtain specimen); Complete Time: 19:07 01/18 07:57 Order name: Diet Regular; Complete Time: 11:37 sv Administered Medications: 01/17 18:30 Drug: Ativan 1 mg Route: IVP; Site: left antecubital; ph 19:34 Follow up: Response: No adverse reaction ph 18:30 Drug: Ativan 1 mg Route: IVP; Site: left antecubital; ph 19:34 Follow up: Response: No adverse reaction ph 18:35 Drug: NS 0.9% 1000 ml Route: IV; Rate: 1000 ml; Site: left antecubital; ph 18:51 Drug: Versed 2 mg Route: IVP; Site: left antecubital; ph 19:34 Follow up: Response: No adverse reaction ph 19:29 Drug: Benadryl 50 mg Route: IVP; Site: left antecubital; ea 19:56 Follow up: Response: No adverse reaction ea 19:30 Drug: NS 0.9% 1000 ml Route: IV; Rate: 1000 ml; Site: left antecubital; ea 19:30 Drug: HALdol 5 mg Route: IVP; Site: left antecubital; ea 19:56 Follow up: Response: No adverse reaction ea Disposition: 01/19/20 05:52 Discharged to Home. Impression: Delusional disorders. - Condition is Stable. - Discharge Instructions: What You Need To Know About Illegal Drug Use and Dependence, Youth. - Medication Reconciliation Form, Thank You Letter, Antibiotic Education, Prescription Opioid Use form. - Follow up: Private Physician; When: Tomorrow; Reason: Continuance of care. Signatures: Dispatcher [employer] Lan Sierra MD MD rn Hall, Patricia RN Heide Tracey ph RN CARLA Roseline Basilio RN RN jl7 Rehana Obrien RN RN ea Alzahri, Mohammad, MD MD ma2 Corrections: (The following items were deleted from the chart) 01/18 09:11 05:52 01/19/2020 05:52 Discharged to Home. Impression: Delusional disorders. Condition hb is Stable. Forms are Medication Reconciliation Form, Thank You Letter, Antibiotic Education, Prescription Opioid Use. Follow up: Private Physician; When: Tomorrow; Reason: Continuance of care. ma2
--- NOTE | 2020-01-24 14:05 | ER ---
Nurse's Notes [facility] Name: Jewels Webber Age: 30 yrs Sex: Female : 1990 Arrival Date: 01/18/2020 Time: 18:14 Bed 3 Private MD: Eze Tamayo T Diagnosis: Delusional disorders Presentation: 01/17 18:31 Chief complaint: EMS states: Pt arrested by [place] [employer], was found confused, rambling and ph yelling, after leaving a known drug house, was combative for EMS and had to be restrained, IV initiated, ketamine and Ativan administered, HR up to 180s. Coronavirus screen: Patient denies a cough. Patient denies shortness of breath or difficulty breathing. Patient denies measured and/or subjective temperature greater than 100.4F prior to today's visit. Patient denies travel on a cruise ship or to a country the [facility] [place] currently [place] as an affected area. Patient denies contact with known and/or suspected case of COVID-19. Ebola Screen: No symptoms or risks identified at this time. Initial Sepsis Screen: Does the patient meet any 2 criteria? No. Patient's initial sepsis screen is negative. Does the patient have a suspected source of infection? No. Patient's initial sepsis screen is negative. Risk Assessment: Do you want to hurt yourself or someone else? Patient reports no desire to harm self or others. Onset of symptoms was January 18, 2020. 18:31 Method Of Arrival: EMS: [place] [facility] 18:31 Acuity: DANIEL 2 ph Historical: - Allergies: 19:38 No Known Drug Allergies; ph - PMHx: 19:38 Ovarian cyst; drug abuse; ph - Immunization history:: Adult Immunizations unknown. - Family history:: not pertinent. - Social history:: Smoking status: Patient reports the use of cigarette tobacco products, smokes one pack cigarettes per day. - Hospitalizations: : No recent hospitalization is reported. Screenin:51 Abuse screen: Denies threats or abuse. Denies injuries from another. ph 19:38 Nutritional screening: No deficits noted. Tuberculosis screening: No symptoms or risk ph factors identified. Fall Risk None identified. Assessment: 18:20 General: Appears distressed, uncomfortable, unkempt, Behavior is agitated, combative, ph uncooperative. Pain: Unable to use pain scale. Patient is disoriented. Does not appear to understand pain scale. Neuro: Level of Consciousness is awake, alert, Oriented to person, Pupils are dilated. Cardiovascular: Capillary refill < 3 seconds in bilateral fingers Patient's skin is warm and dry. Respiratory: Airway is patent Respiratory effort is even, unlabored, Respiratory pattern is regular, symmetrical. GI: Abdomen is flat, non-distended. Derm: Skin is intact, Skin is pink, warm \T\ dry. Musculoskeletal: Circulation, motion, and sensation intact. Range of motion: intact in all extremities. 18:35 Reassessment: Pt straight cathed to obtain urine sample, insulin syringe found in pt's ph pants. 18:50 Reassessment: Patient appears in no apparent distress at this time. Pt awake, remains ph confused and agitated, medicated w/ Versed prior to CT scan, accompanied by nurse to radiology. 19:00 Reassessment: Patient appears in no apparent distress at this time. Pt awake and alert, ph remains agitated and confused, oriented to person only. 19:30 General: Appears uncomfortable, Behavior is agitated, restless. Pain: Unable to use ea pain scale. FLACC scale score is 2 out of 10. Neuro: Level of Consciousness is awake, alert, Oriented to person. Cardiovascular: Patient's skin is warm and dry. Respiratory: Airway is patent Respiratory effort is even, unlabored, Respiratory pattern is regular, symmetrical. 19:56 Reassessment: Patient and/or family updated on plan of care and expected duration. Pain ea level reassessed. Pt resting with eyes closed, respirations even and unlabored, chest expansions even and symmetrical. 20:50 Reassessment: Patient and/or family updated on plan of care and expected duration. Pain ea level reassessed. pt resting with eyes closed, respirations even and unlabored, chest expansions even and symmetrical. 21:45 Reassessment: Patient and/or family updated on plan of care and expected duration. Pain ea level reassessed. Pt resting with eyes closed, respirations even and unlabored, chest expansions even and symmetrical. 22:30 Reassessment: Patient and/or family updated on plan of care and expected duration. Pain ea level reassessed. Pt resting with eyes closed, respirations even and unlabored, chest expansions even and symmetrical. 23:12 Reassessment: Patient and/or family updated on plan of care and expected duration. Pain ea level reassessed. Pt resting with eyes closed, respirations even and unlabored, chest expansions even and symmetrical. No s/s of pain or discomfort noted at this time. 01/18 01:10 Reassessment: Patient and/or family updated on plan of care and expected duration. Pain ea level reassessed. Pt resting with eyes closed, respirations even and unlabored, chest expansions even and symmetrical, no s/s of pain or discomfort noted at this time. 02:03 Reassessment: Patient and/or family updated on plan of care and expected duration. Pain ea level reassessed. Pt resting with eyes closed, respirations even and unlabored. Chest expansions even and symmetrical. 03:05 Reassessment: Patient and/or family updated on plan of care and expected duration. Pain ea level reassessed. Pt resting with eyes closed, respirations even and unlabored, chest expansions even and symmetrical. 04:40 Reassessment: Patient and/or family updated on plan of care and expected duration. Pain ea level reassessed. Pt resting with eyes closed, respirations even and unlabored. Chest expansions even and symmetrical. No s/s of pain or discomfort noted at this time. 05:40 Reassessment: Patient and/or family updated on plan of care and expected duration. Pain ea level reassessed. Pt resting with eyes closed, respirations even and unlabored. Chest expansions even and symmetrical. No s/s of pain or discomfort noted at this time. 06:01 Reassessment: Patient and/or family updated on plan of care and expected duration. Pain ea level reassessed. Pt groggy, wakes up to verbal stimulus. Respirations tj and unlabored, chest expansions even and symmetrical. No s/s of pain or discomfort noted at this time. 08:48 Reassessment: Pt given breakfast tray. Pt sitting up and answering questions sv appropriately. 08:50 Reassessment: Called Keaton Webber at [phone] father stated he would come get her sv and take her home. 08:57 Reassessment: Pt finished breakfast and given some water. sv Vital Signs: 01/17 18:31 BP 135 / 88; Pulse 155; Resp 18; Pulse Ox 100% on R/A; ph 19:57 BP 130 / 80; Pulse 101; Resp 16; Pulse Ox 98% ; ea 20:00 BP 119 / 70; Pulse 88; Resp 18; Pulse Ox 99% on R/A; ea 21:30 BP 110 / 65; Pulse 88; Resp 18; Temp 97.6; Pulse Ox 98% ; ea 22:31 BP 105 / 66; Pulse 96; Resp 18; Pulse Ox 98% on R/A; ea 23:14 BP 118 / 76; Pulse 98; Resp 18; Pulse Ox 98% ; ea 01/18 00:50 BP 109 / 81; Pulse 82; Resp 17; Pulse Ox 98% on R/A; rv 02:14 BP 110 / 79; Pulse 90; Resp 18; Pulse Ox 98% ; ea 05:40 BP 111 / 78; Pulse 89; Resp 18; Pulse Ox 100% ; ea 06:45 BP 115 / 83; Pulse 80; Resp 18; Pulse Ox 100% ; ea 07:24 BP 114 / 77; Pulse 80; Resp 16; Pulse Ox 99% ; sv 08:20 BP 98 / 54; Pulse 84; Resp 16; Pulse Ox 99% ; sv ED Course: 01/17 18:14 Patient arrived in ED. rn 18:14 Lan Metz MD is Attending Physician. rn 18:30 Roseline Basilio RN is Primary Nurse. jl7 18:35 Straight cath inserted, using sterile technique, 16 Fr. Specimen obtained. Returned ph rosi urine. Patient tolerated poorly. Maintain EMS IV. Dressing intact. Good blood return noted. Site clean \T\ dry. Gauge \T\ site: 18 LAC. 18:45 Alie Mckeon, RN is Primary Nurse. ph 18:49 Triage completed. ph 19:02 CT Head Brain wo Cont In Process Unspecified. EDMS 19:37 Arm band placed on. ph 19:37 Patient has correct armband on for positive identification. Bed in low position. Call ph light in reach. Side rails up X2. laboratory monitor on. Pulse ox on. NIBP on. Verbal reassurance given. 01/18 02:23 Eze Tamayo MD is Private Physician. sg 06:02 No provider procedures requiring assistance completed. ea 07:06 Primary Nurse role handed off by Alie Mckeon, CARLA sv 07:06 Leonela Dyson, CARLA is Primary Nurse. sv Administered Medications: 01/17 18:30 Drug: Ativan 1 mg Route: IVP; Site: left antecubital; ph 19:34 Follow up: Response: No adverse reaction ph 18:30 Drug: Ativan 1 mg Route: IVP; Site: left antecubital; ph 19:34 Follow up: Response: No adverse reaction ph 18:35 Drug: NS 0.9% 1000 ml Route: IV; Rate: 1000 ml; Site: left antecubital; ph 18:51 Drug: Versed 2 mg Route: IVP; Site: left antecubital; ph 19:34 Follow up: Response: No adverse reaction ph 19:29 Drug: Benadryl 50 mg Route: IVP; Site: left antecubital; ea 19:56 Follow up: Response: No adverse reaction ea 19:30 Drug: NS 0.9% 1000 ml Route: IV; Rate: 1000 ml; Site: left antecubital; ea 19:30 Drug: HALdol 5 mg Route: IVP; Site: left antecubital; ea 19:56 Follow up: Response: No adverse reaction ea Intake: 01/18 08:57 PO: 480ml; Total: 480ml. sv Outcome: 05:52 Discharge ordered by MD. ramirez 09:11 Patient left the ED. hb Signatures: Dispatcher [employer] EDMS Leonela Dyson RN Darvin Salazar RN Lan Osuna MD MD rn Hall, Patricia, RN RN ph Baxter, Heather, RN RN hb Leal, Jahala, RN RN jl7 Rehana Obrien RN RN ea Alzahri, Mohammad, MD MD ma2 Vicente, Ronaldo RN RN rv Corrections: (The following items were deleted from the chart) 01/17 18:39 18:32 Chief complaint: EMS states: [place] PD arrested pt at known drug house, pt jl7 altered, no making sense and yelling jl7
== END 2020-01-19 09:11 | disposition home or self-care (01) ==
LOC: ER 18:13
DX: F22 Delusional disorders (principal); F17.210 Nicotine dependence, cigarettes, uncomplicated
CPT/HCPCS: 36415; 51702; 70450; 80048; 80076; 80307; 80320; 80329; 81003; 81025; 85025; 85610; 85730; 96374; 96375; 99285; J1200; J1630; J2250; J7030

== ENCOUNTER 2020-06-15 15:32 | Emergency (ER) | payer SELFPAY ==
--- OUTSIDE RECORDS SUMMARY | 2020-06-15 17:02 | XMS REPORT | Continuity of Care Document ---
:1990 Author Organization [facility] t Address [address] [place] [address] Care Team Providers Name Role Phone Chelsie Contreras MD Attending Clinician Tremaine SANFORD Attending Clinician Gaby SANFORD Attending Clinician Gaby SANFORD Admitting Clinician Problems This patient has no known problems. Allergies, Adverse Reactions, Alerts This patient has no known allergies or adverse reactions. Medications This patient has no known medications. Procedures This patient has no known procedures. Encounters Start End Encounter Admission Attending Care Care Encounter Source Date/Time Date/Time Type Type Clinicians Facility Department ID 2020-02-09 2020-02-10 Emergency Enoc Contreras [id number] .114 [id number] 16:46:58 12:38:00 [place] [id number] Maryuri Griffin [id number] [place] [address] [id number] 2020-01-13 2020-01-13 Emergency Ben [facility] [id number] 06:02:03 06:59:00 Enoc Holguin Gu[place] [id number] [place] [id number] [place] [address] [phone] [id number] Results This patient has no known results.
--- NOTE | 2020-06-15 17:34 | ER ---
Nurse's Notes [facility] Name: Jewels Webber Age: 30 yrs Sex: Female : 1990 Arrival Date: 06/15/2020 Time: 15:34 Bed 14 Private MD: Diagnosis: Presentation: 06/15 15:41 Chief complaint: Right flank and pain with urination x 2 weeks. Blood in urine z 1 hb week. Coronavirus screen: At this time, the client does not indicate any symptoms associated with coronavirus-19. Ebola Screen: No symptoms or risks identified at this time. Initial Sepsis Screen: Does the patient meet any 2 criteria? HR > 90 bpm. No. Patient's initial sepsis screen is negative. Does the patient have a suspected source of infection? No. Patient's initial sepsis screen is negative. Risk Assessment: Do you want to hurt yourself or someone else? Patient reports no desire to harm self or others. Onset of symptoms was June 01, 2020. 15:41 Method Of Arrival: Wheelchair hb 15:41 Acuity: DANIEL 2 hb GEOPHYSICIST: 15:43 LMP 05/25/2020 hb Historical: - Allergies: 15:43 No Known Allergies; hb - PMHx: 15:43 drug abuse; Ovarian cyst; hb - Immunization history:: Adult Immunizations up to date. - Social history:: Smoking status: Patient reports the use of cigarette tobacco products, smokes one pack cigarettes per day. Screenin:00 Abuse screen: Denies threats or abuse. Denies injuries from another. Nutritional ca1 screening: No deficits noted. Tuberculosis screening: No symptoms or risk factors identified. Fall Risk IV access (20 points). Assessment: 16:00 General: Appears in no apparent distress. uncomfortable, Behavior is agitated, anxious, ca1 combative, crying, Pt on the floor crying, and screaming, "I peed on myself" . Pain: Complains of pain in back and abdomen Pain currently is 10 out of 10 on a pain scale. Neuro: Level of Consciousness is awake, alert, Oriented to person, place, time, situation. Cardiovascular: Heart tones S1 S2 present Capillary refill < 3 seconds Patient's skin is warm and dry. Respiratory: Airway is patent Respiratory effort is even, unlabored, Respiratory pattern is regular, symmetrical, Breath sounds are clear bilaterally. GI: Abdomen is flat, non-distended, Bowel sounds present X 4 quads. Abd is soft and non tender X 4 quads. : Urine is clear. EENT: No signs and/or symptoms were reported regarding the EENT system. Derm: Skin is intact, is healthy with good turgor, Skin is pink, warm \\T\\ dry. Musculoskeletal: Capillary refill < 3 seconds. 17:00 Reassessment: Patient appears in no apparent distress at this time. No changes from ca1 previously documented assessment. Patient and/or family updated on plan of care and expected duration. Pain level reassessed. 17:32 Reassessment: Pt took out her IV and wanted to leave. Pt states, "don't touch me. I ca1 want to go home. I will leave now". 17:45 Reassessment: PT ROLLING ON GROUND DESPITE URGING OF SIGNIFICANT OTHER AND STAFF, bp STATING "MY GENETICS DON'T WORK WITH SOME PLASTICS, IT'S NOT MY FAULT" WHEN ASKED WHY SHE D/C'ED OWN PIV. PT REFUSING FURTHER CARE ACTIVITIES, SCREAMING "I WANNA FUCKING LEAVE" AT STAFF AND PLANT PROPAGATOR. PT LEFT AMA WITHOUT SIGNING FORM, LAST SEEN STABLE CONDITION WITH STEADY GAIT. Vital Signs: 15:41 BP 168 / 88; Pulse 140; Resp 16; Temp 98.4; Pulse Ox 100% on R/A; Weight 74.84 kg; hb Height 6 ft. (182.88 cm); Pain 10/10; 15:41 Body Mass Index 22.38 (74.84 kg, 182.88 cm) hb ED Course: 15:34 Patient arrived in ED. as 15:43 Triage completed. hb 15:43 Arm band placed on. hb 16:00 Patient has correct armband on for positive identification. Bed in low position. Call ca1 light in reach. Side rails up X 1. 16:00 Pt refused to be connected to the monitors. ca1 16:09 Donald Ha PA is PHCP. [facility] 16:09 Bao Cook MD is Attending Physician. [facility] 16:13 Kenia Almanza, CARLA is Primary Nurse. ca1 17:22 No provider procedures requiring assistance completed. Initial lab(s) drawn, by me, ca1 sent to lab. Inserted saline lock: 20 gauge in left antecubital area, using aseptic technique. Blood collected. 17:30 intact, bleeding controlled, No redness/swelling at site. Pressure dressing applied, Pt ca1 took IV out herself. Administered Medications: 21:27 Not Given (Patient Eloped): NS 0.9% 1000 ml IV at 1 bolus Per protocol; 1000 mL bolus ca1 21:27 Not Given (Patient Eloped; see nurse's notes): morphine 4 mg IVP once; RASS on ADMIN: ca1 Combtv4, Very Agttd3, Agttd2, Rstlss1, AlertClm0, Drwsy-1, Lt Sdtn-2, Mod Sdtn-3, Dp Sdtn-4, UnArsble-5 21:27 Not Given (Patient Eloped): Zofran (Ondansetron) 4 mg IVP once; over 2 minutes ca1 21:27 Not Given (Patient Eloped): Ativan 1 mg IVP once ca1 Outcome: 17:30 AMA Left before signing form. ca1 17:30 Condition: stable 17:33 Patient left the ED. ca1 Signatures: Donald Ha PA PA jmm Martinez, Amelia as Baxter, Heather RN RN Deangleo Gutierrez RN RN Kenia Gonzalez RN RN ca1 Corrections: (The following items were deleted from the chart) 21:32 17:35 intact, bleeding controlled, No redness/swelling at site. Pressure dressing ca1 applied, Pt took IV out herself ca1
[2020-06-15] MEDS ORDERED: ONDANSETRON 4 MG/2 ML VIAL ONE (17:43)
[2020-06-15] MEDS ORDERED: MORPHINE 4 MG/ML SYR ONE (17:43)
[2020-06-15] MEDS ORDERED: LORazepam 2 MG/ML VIAL ONE (17:43)
[2020-06-15] MEDS ORDERED: NA CHLORIDE 0.9% 1,000 ML ONE (17:44)
[2020-06-15 17:45] LABS: Absolute Lymphocytes (CBC) 2.7 K/uL (0.7-4.9); Basophils % 1.1 % (0-1.3); Hematocrit 40.4 % (36.0-45.0); Lymphocytes % 20.6 % (15.3-44.8); MPV 7.6 fL (7.6-11.3); RBC Red Blood Cell Count 4.57 M/uL (3.86-4.86)
[2020-06-15 18:06] VITALS: BP 168/88; TEMP 98.4; O2SAT 100
[2020-06-15 18:40] LABS: Albumin 4.2 g/dL (3.4-5.0); Bilirubin Direct 0.1 mg/dL (0-0.2); Bilirubin Total 0.4 mg/dL (0.2-1.0); Protein, Total 7.8 g/dL (6.4-8.2)
--- NOTE | 2020-06-16 17:36 | EDPHYS ---
Physician Documentation [facility] Name: Jewels Webber Age: 30 yrs Sex: Female : 1990 Arrival Date: 06/15/2020 Time: 15:34 Bed 14 Private MD: ED Physician Bao Cook HPI: 06/15 16:38 This 30 yrs old Female presents to ER via Wheelchair with complaints of jmm Vaginal Pain, Urinary Problem, Abdominal Pain. 16:38 The patient presents with urinary symptoms, dysuria, hematuria. Onset: The jmm symptoms/episode began/occurred today. Modifying factors: The symptoms are alleviated by nothing, the symptoms are aggravated by nothing. Associated signs and symptoms: Pertinent negatives: fever, vomiting. The patient has not experienced similar symptoms in the past. 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 - Social history:: Smoking status: Patient reports the use of cigarette tobacco products, smokes one pack cigarettes per day. ROS: 16:38 Constitutional: Negative for fever, chills, and weight loss, Cardiovascular: Negative jmm for chest pain, palpitations, and edema, Respiratory: Negative for shortness of breath, cough, wheezing, and pleuritic chest pain, Abdomen/GI: Negative for abdominal pain, nausea, vomiting, diarrhea, and constipation. 16:38 : Positive for urinary symptoms, pelvic pain, vaginal bleeding. 16:38 All other systems are negative. Exam: 16:38 Head/Face: atraumatic. Eyes: EOMI, no conjunctival erythema appreciated ENT: Moist jmm Mucus Membranes Neck: Trachea midline, Supple Chest/axilla: Normal chest wall appearance and motion. Cardiovascular: Regular rate and rhythm. No edema appreciated Respiratory: Normal respirations, no respiratory distress appreciated Abdomen/GI: Non distended, soft Back: Normal ROM Skin: General appearance color normal MS/ Extremity: Moves all extremities, no obvious deformities appreciated, no edema noted to the lower extremities Neuro: Awake and alert, normal gait 16:38 Constitutional: The patient appears alert, awake, anxious, in obvious distress. 16:38 Psych: Behavior/mood is anxious. Vital Signs: 15:41 BP 168 / 88; Pulse 140; Resp 16; Temp 98.4; Pulse Ox 100% on R/A; Weight 74.84 kg; hb Height 6 ft. (182.88 cm); Pain 06/03; 15:41 Body Mass Index 22.38 (74.84 kg, 182.88 cm) hb MDM: 16:38 Patient medically screened. [facility] 20:52 Data reviewed: vital signs, nurses notes. ED course: Patient eloped from the ED prior [facility] to full evaluation. 06/15 16:45 Order name: Basic Metabolic Panel [facility] 06/15 16:45 Order name: CBC with Diff [facility] 06/15 16:45 Order name: Hepatic Function [facility] 06/15 16:45 Order name: Lipase [facility] 06/15 16:45 Order name: Test, Serum [facility] 06/15 15:46 Order name: Urine Test (obtain specimen); Complete Time: 17:30 kb 06/15 15:46 Order name: Urine Dipstick-Ancillary (obtain specimen); Complete Time: 17:30 kb 06/15 16:45 Order name: IV Saline Lock; Complete Time: 17:22 [facility] 06/15 16:45 Order name: Labs collected and sent; Complete Time: 17:22 [facility] Administered Medications: 21:27 Not Given (Patient Eloped): NS 0.9% 1000 ml IV at 1 bolus Per protocol; 1000 mL bolus ca1 21:27 Not Given (Patient Eloped; see nurse's notes): morphine 4 mg IVP once; RASS on ADMIN: ca1 Combtv4, Very Agttd3, Agttd2, Rstlss1, AlertClm0, Drwsy-1, Lt Sdtn-2, Mod Sdtn-3, Dp Sdtn-4, UnArsble-5 21:27 Not Given (Patient Eloped): Zofran (Ondansetron) 4 mg IVP once; over 2 minutes ca1 21:27 Not Given (Patient Eloped): Ativan 1 mg IVP once ca1 Disposition: 06/16 14:36 Co-signature as Attending Physician, Bao Cook MD I agree with the assessment and kdr plan of care. Disposition: 06/15/20 17:33 Patient left the facility after being seen by provider. - Patient left due to direct admit. Signatures: Dispatcher [employer] Amara Rios, BURKE FUENTES-Bao Olivier MD MD kdr Mickail, Joel, PA PA jmm Baxter, Heather, RN RN hb AcKenia mayers RN RN ca1
== END 2020-06-15 17:33 | disposition left against medical advice (07) ==
LOC: ER 15:32
DX: R30.0 Dysuria (principal); R31.9 Hematuria, unspecified; F17.210 Nicotine dependence, cigarettes, uncomplicated
CPT/HCPCS: 36415; 80048; 80076; 83690; 84703; 85025; 99284; J2405; J7030

== ENCOUNTER 2020-06-15 18:15 | Emergency (ER) | payer SELFPAY ==
--- OUTSIDE RECORDS SUMMARY | 2020-06-15 18:17 | XMS REPORT | Continuity of Care Document ---
:1990 Author Organization [facility] t Address [address] [place] [address] Care Team Providers Name Role Phone Chelsie [...] Department ID 2020-02-09 2020-02-10 Emergency Enoc Contreras [address] .114 [id number] 16:46:58 12:38:00 [place] [id number] Maryuri Griffin [id number] [place] [address] [id number] 2020-01-13 2020-01-13 Emergency Ben [facility] [id number] 06:02:03 06:59:00 Enoc Holguin [place] [id number] [place] [id number] [place] [address] [phone] [id number] Results This patient has no known results.
--- NOTE | 2020-06-15 18:34 | EDPHYS ---
Physician Documentation [facility] Name: Jewels Webber Age: 30 yrs Sex: Female : 1990 Arrival Date: 06/15/2020 Time: 18:17 Bed 20 Private MD: ED Physician Bao Cook HPI: 06/15 18:31 This 30 yrs old Female presents to ER via Unassigned with complaints of jmm dysuria. 18:31 The patient presents with urinary symptoms. Modifying factors: The symptoms are jmm alleviated by nothing, the symptoms are aggravated by nothing. 18:31 Onset: The symptoms/episode began/occurred today. jmm 18:31 Patient returned to the ED after being in custody complains of dysuria and concerned jmm she may be . Historical: - Allergies: 18:41 No Known Allergies; bp - Home Meds: 18:41 None [Active]; bp - PMHx: 18:41 drug abuse; Ovarian cyst; bp - Immunization history:: Adult Immunizations unknown. - Social history:: Smoking status: unknown. ROS: 18:31 Constitutional: Negative for fever, chills, and weight loss, Cardiovascular: Negative jmm for chest pain, palpitations, and edema, Respiratory: Negative for shortness of breath, cough, wheezing, and pleuritic chest pain, Abdomen/GI: Negative for abdominal pain, nausea, vomiting, diarrhea, and constipation. 18:31 : Positive for urinary symptoms. 18:31 All other systems are negative. Exam: 18:31 Head/Face: atraumatic. Eyes: EOMI, no conjunctival erythema appreciated ENT: Moist jmm Mucus Membranes Neck: Trachea midline, Supple Chest/axilla: Normal chest wall appearance and motion. Cardiovascular: Regular rate and rhythm. No edema appreciated Respiratory: Normal respirations, no respiratory distress appreciated Abdomen/GI: Non distended, soft Back: Normal ROM Skin: General appearance color normal MS/ Extremity: Moves all extremities, no obvious deformities appreciated, no edema noted to the lower extremities Neuro: Awake and alert, normal gait 18:31 Constitutional: The patient appears alert, awake, anxious. 18:31 Psych: Behavior/mood is anxious, uncooperative. Vital Signs: 18:20 bp 18:20 PT REFUSED bp MDM: 18:31 Patient medically screened. [facility] 18:34 Data reviewed: vital signs, nurses notes. Counseling: I had a detailed discussion with dayan the patient and/or guardian regarding: the historical points, exam findings, and any diagnostic results supporting the discharge/admit diagnosis, the need for outpatient follow up, to return to the emergency department if symptoms worsen or persist or if there are any questions or concerns that arise at home. 20:55 ED course: I discussed the need for IV access along with imaging for further evaluation jmm of pelvic pain. Patient refused. I discussed with the PD to return the patient to the ED if pain worsens. . Administered Medications: No medications were administered Disposition: 06/16 14:30 Co-signature as Attending Physician, Bao Cook MD I agree with the assessment and kdr plan of care. Disposition: 06/15/20 18:34 Discharged to Home. Impression: Dysuria. - Condition is Stable. - Discharge Instructions: Dysuria. - Medication Reconciliation Form, Thank You Letter, Antibiotic Education, Prescription Opioid Use form. - Follow up: Private Physician; When: 2 - 3 days; Reason: Recheck today's complaints, Continuance of care, Re-evaluation by your physician. Signatures: Bao Cook MD MD [facility] Donald Ha PA PA [facility] Deangelo Tejada, RN RN bp Corrections: (The following items were deleted from the chart) 06/15 18:49 18:34 06/15/2020 18:34 Discharged to Home. Impression: Dysuria. Condition is Stable. bp Forms are Medication Reconciliation Form, Thank You Letter, Antibiotic Education, Prescription Opioid Use. Follow up: Private Physician; When: 2 - 3 days; Reason: Recheck today's complaints, Continuance of care, Re-evaluation by your physician. [facility]
--- NOTE | 2020-06-15 18:50 | ER ---
Nurse's Notes [facility] Name: Jewels Webber Age: 30 yrs Sex: Female : 1990 Arrival Date: 06/15/2020 Time: 18:17 Bed 20 Private MD: Diagnosis: Dysuria Presentation: 06/15 18:20 Chief complaint: PT RETURNED TO ER BY [facility] FOR MED CLEARANCE AFTER RESISTING ARREST IN [facility]. Coronavirus screen: At this time, the client does not indicate any symptoms associated with coronavirus-19. Ebola Screen: No symptoms or risks identified at this time. Initial Sepsis Screen: Does the patient meet any 2 criteria? No. Patient's initial sepsis screen is negative. Does the patient have a suspected source of infection? No. Patient's initial sepsis screen is negative. Risk Assessment: Do you want to hurt yourself or someone else? Patient reports no desire to harm self or others. Onset of symptoms is unknown. 18:20 Method Of Arrival: Law Enforcement: [facility] bp 18:20 Acuity: DANIEL 5 bp Triage Assessment: 18:20 General: Appears distressed, uncomfortable, slender, unkempt, Behavior is agitated, bp anxious, combative. General: PT REFUSING ALL HEALTH CARE ACTIVITIES, IN CUSTODY OF [facility]. AOx4, SPEECH PRESSURED AND LOUD, RAMBLING AND TANGENTIAL. Pain: Denies pain. Historical: - Allergies: 18:41 No Known Allergies; bp - Home Meds: 18:41 None [Active]; bp - PMHx: 18:41 drug abuse; Ovarian cyst; bp - Immunization history:: Adult Immunizations unknown. - Social history:: Smoking status: unknown. Screenin:20 Abuse screen: Denies threats or abuse. Denies injuries from another. Nutritional bp screening: No deficits noted. Tuberculosis screening: No symptoms or risk factors identified. Fall Risk None identified. Assessment: 18:20 General: SEE TRIAGE NOTE. bp 18:45 Reassessment: PT RELEASED TO [facility] AFTER CONTINUING TO REFUSE TREATMENT. bp Vital Signs: 18:20 bp 18:20 PT REFUSED bp ED Course: 18:17 Patient arrived in ED. em1 18:18 Donald Ha PA is PHCP. [facility] 18:18 Bao Cook MD is Attending Physician. cinthya 18:20 Arm band placed on. bp 18:20 Patient has correct armband on for positive identification. Bed in low position. Call bp light in reach. Side rails up X2. agricultural produce washer on. Pulse ox on. NIBP on. 18:38 Deangelo Tejada, RN is Primary Nurse. bp 18:41 Triage completed. bp 18:47 No provider procedures requiring assistance completed. Patient did not have IV access bp during this emergency room visit. Administered Medications: No medications were administered Outcome: 18:34 Discharge ordered by . cinthya 18:48 Discharged to Law Enforcement bp 18:48 Condition: stable 18:48 Discharge instructions given to patient, police, Instructed on discharge instructions, follow up and referral plans. Demonstrated understanding of instructions, follow-up care. 18:49 Patient left the ED. bp Signatures: Donald Ha PA PA jmm Martinez, Eric em1 Deangelo Tejada, RN RN bp
== END 2020-06-15 18:49 | disposition home or self-care (01) ==
LOC: ER 18:15
DX: R30.0 Dysuria (principal); R10.2 Pelvic and perineal pain
CPT/HCPCS: 99284

== ENCOUNTER 2020-09-13 22:51 | Emergency (ER) | payer SELFPAY ==
--- OUTSIDE RECORDS SUMMARY | 2020-09-13 22:53 | XMS REPORT | Continuity of Care Document ---
:1990 Author Organization [facility] t Address [address] [place] [address] Care Team Providers Name Role Phone Radiology Attending Clinician Unavailable Chelsie Contreras MD Attending Clinician Tremaine SANFORD [...] Date/Time Type Type Clinicians Facility Department ID 2020-06-26 2020-06-26 [facility] [id number] 12:56:30 23:59:00 Encounter [place] [id number] [place] [id number] [place] [address] [id number] 2020-02-09 2020-02-10 [facility] [id number] 16:46:58 12:38:00 [place] [id number] Maryuri Griffin [id number] [place] [address] [id number] [id number] 2020-01-13 2020-01-13 Emergency [facility] [id number] 06:02:03 06:59:00 [place] [id number] [place] [id number] [place] [phone] [id number] Results This patient has no known results.
[2020-09-13] MEDS ORDERED: ZIPRASIDONE MESYLA 20 MG/VIAL IM ONE (23:28)
[2020-09-13] MEDS ORDERED: LORazepam 2 MG/ML VIAL ONE ×2 (23:28→23:44)
[2020-09-13] MEDS ORDERED: NA CHLORIDE 0.9% 1,000 ML ONE (23:44)
[2020-09-13 23:49] LABS: Absolute Lymphocytes (CBC) 3.4 K/uL (0.7-4.9); Basophils % 0.7 % (0-1.3); Hematocrit 42.2 % (36.0-45.0); Lymphocytes % 23.6 % (15.3-44.8); MPV 7.4 fL (7.6-11.3); RBC Red Blood Cell Count 4.82 M/uL (3.86-4.86)
[2020-09-13 23:53] LABS: Protime INR 1.17
[2020-09-14 00:03] LABS: ALT/SGPT 23 U/L (12-78); AST/SGOT 19 U/L (15-37); Albumin 4.2 g/dL (3.4-5.0); Alkaline Phosphatase 154 U/L (45-117); BUN Blood Urea Nitrogen 12 mg/dL (7-18); Bicarbonate 26 mmol/L (21-32); Bilirubin Direct 0.1 mg/dL (0-0.2); Bilirubin Total 0.5 mg/dL (0.2-1.0); Glucose Level 92 mg/dL (74-106); Protein, Total 7.8 g/dL (6.4-8.2); Sodium Level 140 mmol/L (136-145)
[2020-09-14 01:04] LABS: Barbiturates NEGATIVE (NEGATIVE); Benzodiazepines NEGATIVE (NEGATIVE); Cocaine NEGATIVE (NEGATIVE); METHAMPHETAM POSITIVE (NEGATIVE); Methadone NEGATIVE (NEGATIVE); Opiates NEGATIVE (NEGATIVE); Phencyclidine NEGATIVE (NEGATIVE); THC Cannibis POSITIVE (NEGATIVE)
[2020-09-14 01:05] LABS: Urine Blood NEGATIVE (NEG); Urine Glucose NEGATIVE (NEG); Urine Protein 1+ (NEG); Urine Specific Gravity >1.030 (1.005-1.030)
[2020-09-14 03:03] LABS: Urine Specific Gravity >1.030 (1.005-1.030)
--- NOTE | 2020-09-14 06:18 | EDPHYS ---
Physician Documentation [facility] Name: Jewels Webber Age: 30 yrs Sex: Female : 1990 Arrival Date: 09/13/2020 Time: 22:57 Bed 6 Private MD: ED Physician Zac Sage HPI: 09/14 00:35 This 30 yrs old Female presents to ER via Unassigned with complaints of Psych reji Problem. 00:35 The patient presents to the emergency department with depression, psychosis. Onset: The reji symptoms/episode began/occurred just prior to arrival. Past psychiatric history: Prior diagnosis: bipolar disorder, depression, schizophrenia, Psychiatric medications include: none. Associated signs and symptoms: The patient has no apparent associated signs or symptoms. Severity of symptoms: At their worst the symptoms were mild moderate in the emergency department the symptoms are unchanged. The patient has experienced similar episodes in the past, several times. 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 - Social history:: Smoking status: Patient denies any tobacco usage or history of. - Family history:: not pertinent. ROS: 09/14 00:35 Constitutional: Negative for fever, chills, and weight loss, Eyes: Negative for injury, reji pain, redness, and discharge, ENT: Negative for injury, pain, and discharge, Neck: Negative for injury, pain, and swelling, Cardiovascular: Negative for chest pain, palpitations, and edema, Respiratory: Negative for shortness of breath, cough, wheezing, and pleuritic chest pain, Abdomen/GI: Negative for abdominal pain, nausea, vomiting, diarrhea, and constipation, Back: Negative for injury and pain, : Negative for injury, bleeding, discharge, and swelling, MS/Extremity: Negative for injury and deformity, Skin: Negative for injury, rash, and discoloration, Neuro: Negative for headache, weakness, numbness, tingling, and seizure, Allergy/Immunology: Negative for hives, rash, and allergies, Endocrine: Negative for neck swelling, polydipsia, polyuria, polyphagia, and marked weight changes, Hematologic/Lymphatic: Negative for swollen nodes, abnormal bleeding, and unusual bruising. Psych: Positive for anxiety, depression, drug dependence. Exam: 00:35 Constitutional: This is a well developed, well nourished patient who is awake, alert, reji and in no acute distress. Head/Face: Normocephalic, atraumatic. Eyes: Pupils equal round and reactive to light, extra-ocular motions intact. Lids and lashes normal. Conjunctiva and sclera are non-icteric and not injected. Cornea within normal limits. Periorbital areas with no swelling, redness, or edema. ENT: Nares patent. No nasal discharge, no septal abnormalities noted. Tympanic membranes are normal and external auditory canals are clear. Oropharynx with no redness, swelling, or masses, exudates, or evidence of obstruction, uvula midline. Mucous membranes moist. Neck: Trachea midline, no thyromegaly or masses palpated, and no cervical lymphadenopathy. Supple, full range of motion without nuchal rigidity, or vertebral point tenderness. No Meningismus. Chest/axilla: Normal chest wall appearance and motion. Nontender with no deformity. No lesions are appreciated. Respiratory: Lungs have equal breath sounds bilaterally, clear to auscultation and percussion. No rales, rhonchi or wheezes noted. No increased work of breathing, no retractions or nasal flaring. Abdomen/GI: Soft, non-tender, with normal bowel sounds. No distension or tympany. No guarding or rebound. No evidence of tenderness throughout. Back: No spinal tenderness. No costovertebral tenderness. Full range of motion. Female : Normal external genitalia. Skin: Warm, dry with normal turgor. Normal color with no rashes, no lesions, and no evidence of cellulitis. MS/ Extremity: Pulses equal, no cyanosis. Neurovascular intact. Full, normal range of motion. Neuro: Awake and alert, GCS 15, oriented to person, place, time, and situation. Cranial nerves II-XII grossly intact. Motor strength 5/5 in all extremities. Sensory grossly intact. Cerebellar exam normal. Normal gait. 00:35 Cardiovascular: Rate: tachycardic, Rhythm: regular, Pulses: Pulses are 4+ in bilateral radial, brachial, femoral, popliteal, posterior tibial and and dorsalis pedis arteries.. Heart sounds: normal, Edema: is not appreciated, JVD: is not appreciated. 00:35 Psych: Behavior/mood is anxious, uncooperative, angry, Affect is animated, Oriented to person, place, time, Patient has no thoughts/intents to harm self or others. Judgement / Insight is impaired. Memory is normal. Delusions/hallucinations are not present. 00:42 ECG was reviewed by the Attending Physician. reji Vital Signs: 00:05 BP 105 / 64; Pulse 74; Resp 18; Temp 98; Pulse Ox 98% on R/A; mg2 06:14 BP 110 / 66; Pulse 76; Resp 16; Pulse Ox 98% on R/A; rv MDM: 09/13 23:09 Patient medically screened. reji 09/14 00:39 Differential diagnosis: drug withdrawal. acute psychotic break, depression, psychosis reji secondary to non-compliance. Data reviewed: vital signs, nurses notes, lab test result(s), EKG, radiologic studies. 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 Test interpretation: by ED physician or midlevel provider: ECG. Counseling: I had a detailed discussion with the patient and/or guardian regarding: the historical points, exam findings, and any diagnostic results supporting the discharge/admit diagnosis, lab results, radiology results. Medication response: geodon/ativan good results. 09/13 22:59 Order name: Acetaminophen; Complete Time: 02: 09/13 22:59 Order name: Basic Metabolic Panel; Complete Time: 02: 09/13 22:59 Order name: CBC with Diff; Complete Time: 02: 09/13 22:59 Order name: ETOH Level; Complete Time: 02:09/13 22:59 Order name: Hepatic Function; Complete Time: 02: 09/13 22:59 Order name: PT-INR; Complete Time: 02:09/13 22:59 Order name: Ptt, Activated; Complete Time: 02:09/13 22:59 Order name: Salicylate; Complete Time: 02: 09/13 22:59 Order name: Urine Drug Screen; Complete Time: 02:21 09/13 23:23 Order name: COVID-19 09/14 00:46 Order name: Urine Dipstick--Ancillary (enter results); Complete Time: 02:21 sg 09/14 01:09 Order name: Urine --Ancillary (enter results); Complete Time: 06:10 sg 09/14 04:46 Order name: SARS-COV-2 RT PCR; Complete Time: 06:10 EDMS 09/13 22:59 Order name: Urine Dipstick-Ancillary (obtain specimen); Complete Time: 02:11 09/13 22:59 Order name: EKG; Complete Time: 23:01 09/13 22:59 Order name: EKG - Nurse/Tech; Complete Time: 23:55 09/13 22:59 Order name: IV Saline Lock; Complete Time: 23:55 09/13 22:59 Order name: Labs collected and sent; Complete Time: 23:56 09/13 22:59 Order name: Urine Dipstick-Ancillary (obtain specimen); Complete Time: 00:21 09/13 23:10 Order name: Urine Test (obtain specimen); Complete Time: 02:11 [facility] EC:42 Rate is 111 beats/min. Rhythm is regular. QRS [place] is Normal. WI interval is normal. reji QRS interval is normal. QT interval is normal. No Q waves. T waves are Normal. No ST changes noted. Clinical impression: Sinus tachycardia. Interpreted by me. Reviewed by me. Administered Medications: 09/13 23:19 Drug: Geodon 20 mg Route: IM; Site: right deltoid; rv 09/14 06:12 Follow up: Response: No adverse reaction rv 09/13 23:19 Drug: Ativan 2 mg Route: IM; Site: left deltoid; rv 09/14 06:12 Follow up: Response: No adverse reaction rv 09/13 23:30 Drug: NS 0.9% 1000 ml Route: IV; Rate: 1 bolus; Site: right antecubital; rv 09/14 06:13 Follow up: IV Status: Completed infusion; IV Intake: 1000ml rv 09/13 23:30 Drug: Ativan 2 mg Route: IVP; Site: right antecubital; rv 09/14 06:13 Follow up: Response: No adverse reaction rv 06:42 Drug: Zithromax 500 mg Route: PO; mg2 06:43 Follow up: Response: No adverse reaction; Medication administered at discharge. mg2 Disposition: 09/14/20 06:17 Discharged to Home. Impression: Anxiety disorder, unspecified, Tobacco use, Tobacco abuse counseling, Abuse of non-psychoactive substances, Cough. - Condition is Stable. - Discharge Instructions: Substance Use Disorder, Steps to Quit Smoking, Smoking Hazards, Cool Mist Vaporizer, Steps to Quit Smoking, [id number], Cough, Adult, Thmm-dr-Egog, Cough, Adult. - Prescriptions for Zithromax Z- Yordan 250 mg Oral Tablet - take 1 tablet by ORAL route as directed for 5 days Day 1 - take two (2) tablets one time. Day 2, 3, 4 , 5 take one (1) tablet once daily.; 6 tablet. - Medication Reconciliation Form, Thank You Letter, Antibiotic Education, Prescription Opioid Use form. - Follow up: Private Physician; When: 2 - 3 days; Reason: Recheck today's complaints, Continuance of care, Re-evaluation by your physician. - Problem is new. - Symptoms have improved. Signatures: Dispatcher [employer] [facility] Darvin Allan RN RN sg Zac Sage MD MD cha Gardose, Michele, RN RN mg2 Trae Singh RN RN rv Corrections: (The following items were deleted from the chart) 03:18 09/13 23:24 CORONAVIRUS ordered. [facility] 09/14 07:04 06:17 09/14/2020 06:17 Discharged to Home. Impression: Anxiety disorder, unspecified; mg2 Tobacco use; Tobacco abuse counseling; Abuse of non-psychoactive substances; Cough. Condition is Stable. Forms are Medication Reconciliation Form, Thank You Letter, Antibiotic Education, Prescription Opioid Use. Follow up: Private Physician; When: 2 - 3 days; Reason: Recheck today's complaints, Continuance of care, Re-evaluation by your physician. Problem is new. Symptoms have improved. reji
--- NOTE | 2020-09-14 06:18 | ER ---
Nurse's Notes [facility] Name: Jewels Webber Age: 30 yrs Sex: Female : 1990 Arrival Date: 09/13/2020 Time: 22:57 Bed 6 Private MD: Diagnosis: Anxiety disorder, unspecified;Tobacco use;Tobacco abuse counseling;Abuse of non-psychoactive substances;Cough Presentation: 09/13 23:07 Chief complaint: POLICE DEPARTMENT: PATIENT FOUND WONDERING IN THE [address] [place]. rv CONFUSED AND AGITATED. 23:15 Note [place] [employer] at bedside x2 with pt, pt in police custody with an JERICHO issued per [facility] PD officer. 23:24 Acuity: DANIEL 3 09/14 02:12 Coronavirus screen: Client denies travel out of the [place] in the last 14 days. Ebola mg2 Screen: No symptoms or risks identified at this time. Initial Sepsis Screen: Does the patient meet any 2 criteria? No. Patient's initial sepsis screen is negative. Does the patient have a suspected source of infection? No. Patient's initial sepsis screen is negative. Risk Assessment: Do you want to hurt yourself or someone else? Patient reports no desire to harm self or others. Onset of symptoms was September 14, 2020. 02:12 Method Of Arrival: Law Enforcement mg2 Triage Assessment: 02:13 General: Appears in no apparent distress. comfortable, Behavior is calm, cooperative. 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 - Social history:: Smoking status: Patient denies any tobacco usage or history of. - Family history:: not pertinent. Screenin/21 02:12 Abuse screen: Denies threats or abuse. Denies injuries from another. Nutritional mg2 screening: No deficits noted. Tuberculosis screening: No symptoms or risk factors identified. Fall Risk IV access (20 points). Assessment: 09/13 23:42 Reassessment: [place] [employer] states that they have not issued an JERICHO, have contacted Jordan teresa with for an JERICHO. 09/14 00:14 Reassessment: [phone] pt father eKaton Manzo for contact per deya CHANG. sg 06:10 Reassessment: Patient states symptoms have not improved. General: Behavior is agitated. rv Neuro:. 06:43 Reassessment: provider assessed the patient and fit to be discharged. patient mg2 understood the instructions. Psych: 00:30 Subjective: Patient's mood is angry, Hallucinations are auditory. rv 00:30 Objective: Patient is uncooperative, aggressive, belligerent, combative, Speech is rv loud. Interventions: Removed personal items and placed in bag. Patient placed in hospital gown. Searched person for dangerous items. Urine collected and sent for urine drug test. Belonging list filled out. Suicide Risk Assessment: Sad Person Scale: Sex of patient: Female: Score 0 points. Age of patient: Score 1 point if patient 15-34. Depression: Score 1 point if signs of depression are present. Previous Attempt: Score 0 point if patient has not previously attempted suicide. Rational Thinking: Score 1 point if patient is lacking rational thinking. Social Support: Score 1 point if social support is lacking and/or unavailable. Organized Plan: Score 0 if patient did not have an organized plan in place. Relationship: Score 1 point if patient is , , , or for a single male Chronic Sickness: Score 0 point if patient does not have a chronic illness, debilitating, or severe disorder. TOTAL POINTS: If total points are 3-4, proposed clinical action is close follow-up/consider hospitalization. Safety Checks: Personal items have been removed. Door is open. No visitors are present at this time. Vital Signs: 00:05 BP 105 / 64; Pulse 74; Resp 18; Temp 98; Pulse Ox 98% on R/A; mg2 06:14 BP 110 / 66; Pulse 76; Resp 16; Pulse Ox 98% on R/A; rv ED Course: 09/13 22:57 Patient arrived in ED. sg 23:07 Trae Singh RN is Primary Nurse. rv 23:09 Zac Sage MD is Attending Physician. reji 23:15 Arm band placed on. sg 23:24 Triage completed. sg 23:51 Initial lab(s) drawn, by me, sent to lab. Inserted saline lock: 20 gauge in right rv antecubital area, using aseptic technique. Blood collected. 09/14 02:13 Patient has correct armband on for positive identification. Pulse ox on. NIBP on. mg2 02:13 No provider procedures requiring assistance completed. mg2 06:10 Safety Checks: Personal items have been removed. The door is open or patient has been rv placed in a hallway bed/chair. Sitter present at this time. 06:44 IV discontinued, intact, bleeding controlled, No redness/swelling at site. Pressure mg2 dressing applied. Administered Medications: 09/13 23:19 Drug: Geodon 20 mg Route: IM; Site: right deltoid; rv 09/14 06:12 Follow up: Response: No adverse reaction rv 09/13 23:19 Drug: Ativan 2 mg Route: IM; Site: left deltoid; rv 09/14 06:12 Follow up: Response: No adverse reaction rv 09/13 23:30 Drug: NS 0.9% 1000 ml Route: IV; Rate: 1 bolus; Site: right antecubital; rv 09/14 06:13 Follow up: IV Status: Completed infusion; IV Intake: 1000ml rv 09/13 23:30 Drug: Ativan 2 mg Route: IVP; Site: right antecubital; rv 09/14 06:13 Follow up: Response: No adverse reaction rv 06:42 Drug: Zithromax 500 mg Route: PO; mg2 06:43 Follow up: Response: No adverse reaction; Medication administered at discharge. mg2 Intake: 06:13 IV: 1000ml; Total: 1000ml. rv Outcome: 06:17 Discharge ordered by . reji 06:44 Discharged to home ambulatory. mg2 06:44 Condition: stable 06:44 Discharge instructions given to patient, Instructed on discharge instructions, follow up and referral plans. medication usage, Demonstrated understanding of instructions, follow-up care, medications, Prescriptions given X 1. 07:04 Patient left the ED. mg2 Signatures: Darvin Allan RN Zac Shea MD MD cha Gardose, Michele, RN RN mg2 Trae Singh RN RN rv
[2020-09-14] MEDS ORDERED: AZITHROMYCIN 250 MG TAB ONE (06:56)
[2020-09-14 07:09] VITALS: TEMP 98; O2SAT 98
[2020-09-14 07:10] VITALS: BP 110/66
== END 2020-09-14 07:04 | disposition home or self-care (01) ==
LOC: ER 22:51
DX: F55.8 Abuse of other non-psychoactive substances (principal); R05 Cough; Z20.822 Contact with and (suspected) exposure to COVID-19; Z72.0 Tobacco use; Z71.6 Tobacco abuse counseling
CPT/HCPCS: 36415; 80048; 80076; 80307; 80320; 80329; 81003; 81025; 85025; 85610; 85730; 96361; 96372; 96374; 99285; J3486; J7030; U0003

== ENCOUNTER 2022-06-21 17:21 | Emergency (ER) | payer OTHER, SELFPAY ==
--- OUTSIDE RECORDS SUMMARY | 2022-06-21 17:27 | XMS REPORT | Continuity of Care Document ---
:1990 Author Organization [facility] [place] [facility] t Address [address] [place] [address] Care Team Providers Name Role Phone PCP, PATIENT DOES NOT HAVE A Primary Care Physician Unavaila ble Radiology Attending Clinician Unavailable RADIOLOGY Attending Clinician Unavailable ESTEPHANIA GRIFFIN Attending Clinician Unavailable Marlon Maurer MD Attending Clinician [place] MD Attending Clinician Estephania Griffin MD Attending Clinician MARLON MAURER Attending Clinician Unavailable ESTEPHANIA GRIFFIN Admitting Clinician Unavailable Estephania Griffin MD Admitting Clinician Payers Payer Name Policy Type Policy Number Effective Date Expiration Date S ource Problems Condition Condition Condition Status Onset Resolution Last Treating Co mments Source Name Details Category Date Date Treatment Clinician Date 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 00:00: [place] [facility] 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 6-17 [place] encephal[place] [facility] Allergies, Adverse Reactions, Alerts Allergy Allergy Status Severity Reaction(s) Onset Inactive Treating Comm ents Source Name Type Date Date Clinician No Known DA [facility]27 Allergie 00:00: s 00 Unable DA Active U [facility] to 2-27 Assess 00:00: 00 NO KNOWN Drug Active Univers ALLERGIE Class ity of S [facility] Social History Social Habit Start Date Stop Date Quantity Comments Source Sex Assigned At [facility] y of [facility] Exposure to Not sure [facility] SARS-CoV-2 [facility] (event) [place] Tobacco use and 2020-02-10 2020-02-10 Never used [facility] y of exposure 00:00:00 00:00:00 [facility] Alcohol intake 2020-02-10 2020-02-10 Current drinker Unive rsity of 00:00:00 00:00:00 of alcohol [facility] (finding) [place] Smoking Status Start Date Stop Date Source Current some day smoker 2020-02-10 00:00:00 Univ ersity [facility] Unknown if ever smoked [facility] Medications Ordered Filled Start Stop Current Ordering Indication Dosage Frequency Signature Comments Components Source Medication Medication Date Date Medication? Clinician (SIG) Name Name thiamine Yes 100mg 100 mg, Unive rs (VITAMIN 6-18 Oral, ity of B1) tablet 14:00: DAILY, [place] 100 mg 00 First dose Medical on [facility] 02/10/20 at 0900, Until Discontinu ed, Routine multivitami 2020-0 Yes 1{tbl} 1 tablet, Univers n tablet 1 6-18 Oral, ity of tablet 14:00: DAILY, [place] 00 First dose Medical on [facility] 02/10/20 at 0900, Until Discontinu ed, Routine D5W-LR IV 2020-0 Yes 1000mL at 100 Univ ers infusion 6-18 mL/hr, IV ity of 1,000 mL 05:15: [facility] Medical , Starting Branch [facility] 02/10/20 at 0015, Until Discontinu ed, Routine nicotine 2020-0 Yes 1{patch 1 Patch, Un cecilio (NICODERM) 6-18 } Topical, ity o f 14 mg/24 hr 05:15: Administer [place] patch 1 00 over 24 Medical Patch Hours, Branch Q24H, First dose on [facility] 02/10/20 at 0015, Until Discontinu ed, Routine thiamine 2020- No IV Univers (VITAMIN 02-09 Infusion, ity o f B1) 100 mg, 05:15: 13:09 at 250 Jose as foLIC acid 00 :00 mL/hr, Medical (FOLATE) 1 ONCE, 1 Branch mg, dose, Whit multivitami 02/10/20 at n adult 0015, (INFUVITE 1,000 ADULT) mL
[place] 3,300 unit- cation: 150 mcg/10 Refeeding mL 10 mL in Syndrome D5W 0.45% in NaCl patients (1/2NS) IV where PO Solution or enteral route is not a viable option NaCl 0.9% 2020- No 1000mL at 999 Uni vers (NS) IV 02-08 mL/hr, ity of infusion 23:00: 04:06 Intravenou [place] 1,000 mL 00 :02 s, Medical CONTINUOUS Branch , Starting 02/09/20 at 1800, Until 02/09/20 at 2306, Routine ziprasidone 2019- No 20mg 20 mg, Uni vers (GEODON) 02-08 Intramuscu ity of injection 22:15: 22:12 lar, ONCE, [place] 20 mg 00 :00 1 dose, Medical Wed Branch 02/09/20 at 1715, STAT
Ch emical Restraint: Yes No known No [facility] No known No Univers medications [facility] Vital Signs Vital Name Observation Time Observation Value Comments Source Systolic blood 2020-02-10 12:17:00 115 mm[Hg] Univer sity of pressure [facility] Diastolic blood 2020-02-10 12:17:00 69 mm[Hg] [facility] Heart rate 2020-02-10 12:17:00 69 /min Universi ty [facility] Body temperature 2020-02-10 12:17:00 37.11 Fay [facility] Respiratory rate 2020-02-10 12:17:00 18 /min [facility] Oxygen saturation in 2020-02-10 12:17:00 100 /min [facility] Arterial blood by [facility] Pulse oximetry Branch Body weight 2020-02-09 21:49:00 72.576 kg [facility] [place] [facility] BMI 2020-02-09 21:49:00 22.96 kg/m2 [facility] [place] [facility] Systolic blood 2020-02-10 12:17:00 115 mm[Hg] Univer sity of pressure [facility] Diastolic blood 2020-02-10 12:17:00 69 mm[Hg] Unive rsity of pressure [place] [facility] Heart rate 2020-02-10 12:17:00 69 /min [facility] [place] [facility] Body temperature 2020-02-10 12:17:00 37.11 Fay Univ [facility] [place] [facility] Respiratory rate 2020-02-10 12:17:00 18 /min Univ [facility] [place] [facility] Oxygen saturation in 2020-02-10 12:17:00 100 /min University of Arterial blood by [facility] Pulse oximetry Branch Body weight 2020-02-09 21:49:00 72.576 kg [facility] [place] [facility] BMI 2020-02-09 21:49:00 22.96 kg/m2 [facility] [place] [facility] Respiratory rate 2020-01-13 11:30:00 28 /min Univ [facility] [place] [facility] Heart rate 2020-01-13 11:30:00 121 /min [facility] [place] [facility] Body height 2020-01-13 10:57:00 177.8 cm [facility] [place] [facility] Body weight 2020-01-13 10:57:00 68.04 kg [facility] [place] [facility] BMI 2020-01-13 10:57:00 21.52 kg/m2 [facility] [place] [facility] Oxygen saturation in 2020-01-13 10:57:00 97 /min University of Arterial blood by [facility] Pulse oximetry Branch Systolic blood 2020-01-13 10:57:00 142 mm[Hg] Univer sity of pressure [place] [facility] Diastolic blood 2020-01-13 10:57:00 97 mm[Hg] Unive rsity of pressure [place] [facility] Body temperature 2020-01-13 10:57:00 37.67 Fay Univ [facility] [place] [facility] Respiratory rate 2020-01-13 11:30:00 28 /min Univ [facility] [place] [facility] Heart rate 2020-01-13 11:30:00 121 /min [facility] [place] [facility] Body height 2020-01-13 10:57:00 177.8 cm Universi ty of [facility] Body weight 2020-01-13 10:57:00 68.04 kg Universi ty [facility] BMI 2020-01-13 10:57:00 21.52 kg/m2 Universi ty [facility] Oxygen saturation in 2020-01-13 10:57:00 97 /min University of Arterial blood by [facility] Pulse oximetry Branch Systolic blood 2020-01-13 10:57:00 142 mm[Hg] Univer sity of pressure [facility] Diastolic blood 2020-01-13 10:57:00 97 mm[Hg] Unive rsity of [facility] Body temperature 2020-01-13 10:57:00 37.67 Fay Univ ersity of [facility] Respiratory 2020-10-22 16:27:53 No respiratory distress /min 02 Sat by Pulse 2020-10-22 16:27:53 100 /min Oximetry Body Mass Index 2020-10-22 16:27:53 23.4 Height 2020-10-22 16:27:53 185\\S\\72.83 Pulse Rate 2020-10-22 16:27:53 75 /min Respiratory Rate 2020-10-22 16:27:53 18 /min Temperature 2020-10-22 16:27:53 36.7\\S\\98.1 Weight 2020-10-22 16:27:53 93338\\S\\2821.917 Respiratory 2020-10-22 16:11:05 No respiratory distress /min 02 Sat by Pulse 2020-10-22 16:11:05 100 /min Oximetry Body Mass Index 2020-10-22 16:11:05 23.4 Height 2020-10-22 16:11:05 185\\S\\72.83 Pulse Rate 2020-10-22 16:11:05 75 /min Respiratory Rate 2020-10-22 16:11:05 18 /min Temperature 2020-10-22 16:11:05 36.7\\S\\98.1 Weight 2020-10-22 16:11:05 18712\\S\\2821.917 Respiratory 2020-10-22 16:10:35 No respiratory distress /min 02 Sat by Pulse 2020-10-22 16:10:35 100 /min Oximetry Body Mass Index 2020-10-22 16:10:35 23.4 Height 2020-10-22 16:10:35 185\\S\\72.83 Pulse Rate 2020-10-22 16:10:35 75 /min Respiratory Rate 2020-10-22 16:10:35 18 /min Temperature 2020-10-22 16:10:35 36.7\\S\\98.1 Weight 2020-10-22 16:10:35 37051\\S\\2821.917 Respiratory 2020-10-22 16:10:04 No respiratory distress /min 02 Sat by Pulse 2020-10-22 16:10:04 100 /min Oximetry Body Mass Index 2020-10-22 16:10:04 23.4 Height 2020-10-22 16:10:04 185\\S\\72.83 Pulse Rate 2020-10-22 16:10:04 75 /min Respiratory Rate 2020-10-22 16:10:04 18 /min Temperature 2020-10-22 16:10:04 36.7\\S\\98.1 Weight 2020-10-22 16:10:04 44042\\S\\2821.917 Respiratory 2020-10-22 16:09:34 No respiratory distress /min 02 Sat by Pulse 2020-10-22 16:09:34 100 /min Oximetry Body Mass Index 2020-10-22 16:09:34 23.4 Height 2020-10-22 16:09:34 185\\S\\72.83 Pulse Rate 2020-10-22 16:09:34 75 /min Respiratory Rate 2020-10-22 16:09:34 18 /min Temperature 2020-10-22 16:09:34 36.7\\S\\98.1 Weight 2020-10-22 16:09:34 85270\\S\\2821.917 Respiratory 2020-10-22 14:36:24 No respiratory distress /min 02 Sat by Pulse 2020-10-22 14:36:24 99 /min Oximetry Body Mass Index 2020-10-22 14:36:24 23.4 Height 2020-10-22 14:36:24 185\\S\\72.83 Pulse Rate 2020-10-22 14:36:24 84 /min Respiratory Rate 2020-10-22 14:36:24 18 /min Temperature 2020-10-22 14:36:24 36.7\\S\\98.1 Weight 2020-10-22 14:36:24 90644\\S\\2821.917 02 Sat by Pulse 2020-10-22 14:11:58 99 /min Oximetry Body Mass Index 2020-10-22 14:11:58 23.4 Height 2020-10-22 14:11:58 185\\S\\72.83 Pulse Rate 2020-10-22 14:11:58 84 /min Respiratory Rate 2020-10-22 14:11:58 18 /min Temperature 2020-10-22 14:11:58 36.7\\S\\98.1 Weight 2020-10-22 14:11:58 27573\\S\\2821.917 Respiratory 2020-10-22 14:11:58 No respiratory distress /min Respiratory 2020-10-22 14:06:23 No respiratory distress /min 02 Sat by Pulse 2020-10-22 14:06:23 99 /min Oximetry Body Mass Index 2020-10-22 14:06:23 23.4 Height 2020-10-22 14:06:23 185\\S\\72.83 Pulse Rate 2020-10-22 14:06:23 81 /min Respiratory Rate 2020-10-22 14:06:23 18 /min Temperature 2020-10-22 14:06:23 36.7\\S\\98.1 Weight 2020-10-22 14:06:23 34859\\S\\2821.917 Respiratory 2020-10-22 01:23:43 No respiratory distress /min Body Mass Index 2020-10-22 01:23:43 23.4 Height 2020-10-22 01:23:43 185\\S\\72.83 Weight 2020-10-22 01:23:43 65644\\S\\2821.917 Respiratory 2020-10-22 00:30:33 No respiratory distress /min Body Mass Index 2020-10-22 00:30:33 23.4 Height 2020-10-22 00:30:33 185\\S\\72.83 Weight 2020-10-22 00:30:33 24130\\S\\2821.917 Respiratory 2020-10-22 00:30:03 No respiratory distress /min Body Mass Index 2020-10-22 00:30:03 23.4 Height 2020-10-22 00:30:03 185\\S\\72.83 Weight 2020-10-22 00:30:03 10514\\S\\2821.917 Respiratory 2020-10-21 23:07:02 No respiratory distress /min Body Mass Index 2020-10-21 23:07:02 23.4 Height 2020-10-21 23:07:02 185\\S\\72.83 Weight 2020-10-21 23:07:02 93529\\S\\2821.917 Respiratory 2020-10-21 23:06:01 No respiratory distress /min Respiratory 2020-10-21 23:04:59 No respiratory distress /min WEIGHT 2020-10-21 23:04:00 80 kg HEIGHT 2020-10-21 23:04:00 185 cm Procedures Procedure Date / Time Performing Clinician Source Performed XR ANKLE 3+ VW RIGHT 2020-06-26 19:40:55 [facility] XR HEEL 2+ VW RIGHT 2020-06-26 19:40:55 [facility] 2020-02-10 11:26:00 Gaby raheem [facility] MAGNESIUM 2020-02-10 11:26:00 Gaby [facility] FOLATE 2020-02-10 11:26:00 Gaby [facility] COMP. METABOLIC PANEL 2020-02-10 11:26:00 Gaby [facility] ([id number]) [facility] SEDIMENTATION RATE 2020-02-10 11:26:00 Gaby raheem [facility] CBC WITH DIFFERENTIAL 2020-02-10 11:26:00 Gaby [facility] ACUTE CARE VENOUS BLOOD 2020-02-10 11:25:00 Gaby raheem [facility] GAS [facility] AMMONIA, PLASMA 2020-02-10 00:06:00 Marlon Maurer [facility] CT HEAD WO CONTRAST 2020-02-09 23:58:22 Marlon [facility]urer [facility] COVID-19 (ID NOW RAPID 2020-02-09 22:53:00 Marlon Maurer [facility] TESTING) Medical Branch CREATINE KINASE 2020-02-09 22:17:00 Estephania Griffin [facility] SALICYLATE 2020-02-09 22:17:00 Marlon Maurer [facility] ETHANOL 2020-02-09 22:17:00 Marlon Maurer [facility] POCT TEST 2020-02-09 21:59:00 Marlon [facility]urer [facility] ADC / LCC - DRUG SCREEN 2020-02-09 21:58:00 Marlon Maurer [facility] TRIAGE [facility] PROTEIN CREAT RATIO 2020-02-09 21:57:00 Estephania Griffin [facility] URINE RANDOM Medical Branch PHOSPHORUS 2020-02-09 21:57:00 Gaby raheem [facility] CREATINE KINASE 2020-02-09 21:57:00 Marlon Maurer [facility] URIC ACID 2020-02-09 21:57:00 Gaby raheem [facility] MAGNESIUM 2020-02-09 21:57:00 Gaby [facility] THYROID STIMULATING 2020-02-09 21:57:00 Marlon Maurer [facility] HORMONE [facility] Branch COMP. METABOLIC PANEL 2020-02-09 21:57:00 Marlon Maurer [facility] ([id number]) Medical Branch LIPID PANEL 2020-02-09 21:57:00 Estephania Griffin [facility] ([id number])(TOTAL Medical Branch CHOLESTEROL, TRIGLYCERIDES, HDL) CBC WITH DIFFERENTIAL 2020-02-09 21:57:00 Marlon Maurer [facility] GLYCOSYLATED HEMOGLOBIN 2020-02-09 21:57:00 Estephania Griffin [facility] (A1C) Medical Branch URINALYSIS 2020-02-09 21:57:00 Marlon Maurer [facility] N-TERMINAL PRO-BNP 2020-02-09 21:57:00 Estephania Griffinit y [facility] SODIUM, URINE RANDOM 2020-02-09 21:57:00 Gaby, [facility] EKG-12 LEAD 2020-02-09 21:50:41 Marlon Maurer [facility] Encounters Start End Encounter Admission Attending Care Care Encounter Source Date/Time Date/Time Type Type Clinicians Facility Department ID 2020-10-21 Inpatient [facility] [id number] [facility] 22:43:00 08 2020-10-21 2020-10-21 Emergency [facility] [id number] [facility] 22:43:00 22:43:00 08 2020-06-26 2020-06-[address] [facility] [id number] Univers 12:56:30 23:59:00 Encounter [place] [id number] ity of [place] 4.2.7.2.686 [facility] [id number] [facility] 807 [place] 2020-06-26 2020-06-26 [facility] Radiology [facility] [id number] 12:56:30 23:59:00 Encounter [place] [id number] [place] [address] [place] [address] [id number] 2020-06-26 2020-06-26 Outpatient R RADIOLOGY [facility] [id number] Univers 00:00:00 00:00:00 ity [facility] 2020-02-09 2020-02-10 Outpatient X GABY MAMARIBEL [facility] [id number] Univers 16:46:58 12:38:00 [facility] 2020-02-09 2020-02-10 Emergency Marlon Maurer [facility] 1.2.840 .114 [id number] Univers 16:46:58 12:38:00 [place] [id number] ity Estephania Griffin [id number] [facility] [id number] [facility] 081 [place] 2020-02-09 2020-02-10 Emergency Marlon Maurer [facility] 1.2.840 .114 [id number] 16:46:58 12:38:00 [place] [id number] Estephania Griffin [place] 4.2.7.2.686 [place] [id number] [facility] 2020-01-13 2020-01-13 [facility] [id number] Univers 06:02:03 06:59:00 [id number] [place] [address] [id number] [place] [address] Branch 2020-01-13 2020-01-13 Emergency [facility] [id number] 06:02:03 06:59:00 Marlon Li [id number] [place] 4.2.7.2.686 [place] [id number] [facility] 2020-01-13 2020-01-13 Emergency X [facility] ERT [id number] Univers 06:02:03 06:02:03 [facility] Results Test Description Test Time Test Comments Results Result Comments Source Sars-CoV-2/FLU A/B RSV PCR 2020-10-22 11:05:00 Test Item Value Reference Range Interpretation Comme nts Sars-CoV-2/FLU A/B RSV PCR (test code = For use under Emergency Use SARSFLURSVPCR) Authorization (EUA) only. Sars-CoV-2/FLU A/B RSV PCR (test code = Reference Range: Negative SARSFLURSVPCR1.1) Influenza A PCR: (test code = Influenza Negative by Nucleic Acid Amplification A PCR:) Influenza B PCR: (test code = Influenza Negative by Nucleic Acid Amplification B PCR:) RSV PCR Result: (test code = RSV PCR Negative by Nucleic Acid Ampli fication Result:) SARS-CoV-2 PCR Result: (test code = Negative by PCR SARS-CoV-2 PCR Result:) Complete Blood Count Auto [id number] 00:08:00 Test Item Value Reference Range Interpretation Comments White Blood Count (test code = 12.3 x10 3/uL 4.4-10.5 H WBCT) Red Blood Count (test code = 4.29 x10 6/uL 3.75-5.20 N RBC) Hemoglobin (test code = HGBT) 13.0 g/dL 12.2-14.8 N Hematocrit (test code = HCTT) 39.1 % 36.5-44.4 N Mean Corpuscular Volume (test 91.10 fL 80.00-100.00 N code = MCV) Mean Corpuscular Hemoglobin 30.3 pg 27.0-32.5 N (test code = MCH) Mean Corpuscular HGB Conc 33.20 g/dL 32.00-37.50 N (test code = MCHC) RDW Coefficient of Variation 13.4 % 11.5-14.5 N (test code = RDWCV) Platelet Count (test code = 327.0 x10 3/uL 140.0-440.0 N PLTT) Mean Platelet Volume (test 8.8 fL code = MPV) Immature Granulocytes % (Auto) 0.3 % 0.0-5.0 N (test code = IMMGRAN%) Neutrophils % (Auto) (test 65.9 % 36.0-70.0 N code = NE%) Lymphocytes % (Auto) (test 23.0 % 12.0-44.0 N code = LY%) Monocytes % (Auto) (test code 10.1 % 0.0-11.0 N = MO%) Eosinophils % (Auto) (test 0.2 % 0.0-7.0 N code = EO%) Basophils % (Auto) (test code 0.5 % 0.0-2.0 N = BA%) Immature Granulocytes # (Auto) 0.04 x10 3/uL (test code = IMMGRAN#) Neutrophils # (Auto) (test 8.1 x10 3/uL 1.6-7.4 H code = NE#) Lymphocytes # (Auto) (test 2.82 x10 3/uL 0.50-4.60 N code = LY#) Monocytes # (Auto) (test code 1.24 x10 3/uL 0.00-1.20 H = MO#) Eosinophils # (Auto) (test 0.03 x10 3/uL 0.00-0.74 N code = EO#) Basophils # (Auto) (test code 0.06 x10 3/uL 0.00-0.21 N = BA#) nRBC Abs (test code = NRBCA) 0 nRBC Pct (test code = NRBCP) 0 % Comprehensive Metabolic [id number] 00:08:00 Test Item Value Reference Range Interpretation Comments SODIUM (test code = NA) 137.0 mmol/L 136.0-145.0 N Potassium,K (test code = K) 4.0 mmol/L 3.0-5.1 N Chloride (test code = CL) 105 mmol/L 98-107 N Carbon Dioxide (test code = CO2) 25 mmol/L 20-31 N Anion Gap (test code = GAP) 7 mmol/L 5-15 N Blood Urea Nitrogen (test code = 13 mg/dL 9-23 N BUN) Creatinine (test code = CREATT) 0.97 mg/dL 0.55-1.02 N Creatinine Clr Calc Pharmacy 96.09 mL/min (test code = CRCLPHA) Estimated GFR ( Danielle > 60 mL/min/1.73m2 (test code = EGFRAA) Estimated GFR (Non Afr Danielle > 60 mL/min/1.73m2 (test code = EGFRNAA) BUN/Creatinine Ratio (test code 13 ratio 10-20 N = BCRATIO) Glucose (test code = GLU) 82 mg/dL 74-106 N Osmolality,Calculated (test code 282.6 = OSMOC) Calcium (test code = CA) 8.9 mg/dL 8.3-10.6 N Bilirubin,Total (test code = 0.8 mg/dL 0.2-1.1 N BILIT) Aspartate Amino Transferase 36 U/L 0-34 H (test code = AST) Alanine Aminotransferase (test 21 U/L 10-49 N code = ALT) Total Protein (test code = TP) 6.2 g/dL 5.7-8.2 N Albumin Level (test code = ALB) 4.3 g/dL 3.2-4.8 N Globulin (test code = GLOB) 1.9 mg/dL 2.3-3.5 L Albumin/Globulin Ratio (test 2.3 ratio 0.8-2.0 H code = AGRATIO) Alkaline Phosphatase (test code 146 U/L 46-116 H = ALP) Ethanol [id number] 00:08:00 Test Item Value Reference Range Interpretation Comments Ethanol (test code = ETOH) < 3 mg/dL XR ANKLE 3+ VW [id number] 22:17:14Suspect avulsion type injury of the medial talus. No other fracture or dislocation seen. RL: [id number] Patient name: MERCY MAST: 1990 30 years EXAMINATION: XR ANKLE 3+ VW RIGHT, XR HEEL 2+ VW RIGHT Ordering Physician: KATELYN ZHOU CLINICAL HISTORY:Closed displaced fracture of lateral malleolus of right fibula, initialencounter COMPARISON:None TECHNIQUE:3 views of the right ankle and 2 views of the right calcaneus performed.FINDINGS:Fragmentation noted along the medial aspect of the calcaneus just distal tothe medial malleolus. No fracture lucency of the distal tibia or fibula. Nolucency at the articular surface. Calcaneus is intact without abnormaldensity or periosteal reaction. Small anterior joint effusion. Soft tissuesare normal. [facility], Radiant Results Inft User - 06/26/2020 4:18 PM CSTPatient name: MERCY MAST: 1990 30 years EXAMINATION: XR ANKLE 3+ VW RIGHT, XR HEEL 2+ VW RIGHTOrdering Physician: KATELYN ZHOU CLINICAL HISTORY:Closed displaced fracture of lateral malleolus of right fibula, init ialencounter COMPARISON:NoneTECHNIQUE:3 views of the right ankle and 2 views of the right calcaneus performed.FINDINGS:Fragmentation noted along the medial aspect of the calcaneus just distal tothe medial malleolus. No fracture lucency of the distal tibia or fibula. Nolucency at the articular surface.Calcaneus is intact without abnormaldensity or periosteal reaction. Small anterior joint effusion. Soft tissuesare normal.IMPRESSIONSuspect avulsion type injury of the medial talus.No other fracture ordislocation seen.RL: 6800 [facility] HE[facility] 2+ VW [id number] 22:17:14Suspect avulsion type injury of the medial talus. No other fracture or dislocation seen. RL: 6800 Patient name: MERCY MAST: 30 years EXAMINATION: XR ANKLE 3+ VW RIGHT, XR HEEL 2+ VW RIGHT Ordering Physician: KATELYN ZHOU CLINICAL HISTORY:Closed displaced fracture of lateral malleolus of right fibula, initialencounter COMPARISON:None TECHNIQUE:3 views of the right ankle and 2 views of the right calcaneus performed. FINDINGS:Fragmentation noted along the medial aspect of the calcaneus just distal tothe medial malleolus. No fracture lucency of the distal tibia or fibula. Nolucency at the articular surface. Calcaneus is intact without abnormaldensity or periosteal reaction. Small anterior joint effusion. Soft tissuesare normal. [facility], Radiant Results Inft User - 06/26/2020 4:18 PM CSTPatient name: MERCY MAST: 1990 30 years EXAMINATION: XR ANKLE 3+ VW RIGHT, XR HEEL 2+ VW RIGHTOrdering Physician: KATELYN ZHOU CLINICAL HISTORY:Closed displaced fracture of lateral malleolus of right fibula, init ialencounter COMPARISON:NoneTECHNIQUE:3 views of the right ankle and 2 views of the right calcaneus performed.FINDINGS:Fragmentation noted along the medial aspect of the calcaneus just distal tothe medial malleolus. No fracture lucency of the distal tibia or fibula. Nolucency at the articular surface.Calcaneus is intact without abnormaldensity or periosteal reaction. Small anterior joint effusion. Soft tissuesare normal.IMPRESSIONSuspect avulsion type injury of the medial talus.No other fracture ordislocation seen.RL: 6800 [facility] 2020-02-10 16:40:00 Test Item Value Reference Range Interpretation Comments FOLATE SER (test code = 12.3 ng/mL 3-20 Biot in has been [id number]) reported to cau se a positive bias, interpret resul ts relative to patient's use o f biotin. Lab Interpretation (test Normal code = 68019-9) [facility]. METABOLIC PANEL ([id number])2020-02-10 12:33:00 Test Item Value Reference Range Interpretation Comments NA (test code = 139 mmol/L 135-145 0903803178) K (test code = 3.8 mmol/L 3.5-5 2679168931) CL (test code = 109 mmol/L 98-108 H 6936967338) CO2 TOTAL (test code = 26 mmol/L 23-31 7979912152) AGAP (test code = 2-16 7513619582) BUN (test code = 8 mg/dL 7-23 0542522904) GLUCOSE (test code = 114 mg/dL 70-110 H 5436896918) CREATININE (test code = 0.72 mg/dL 0.5-1.04 3802178409) TOTAL BILI (test code = 0.7 mg/dL 0.1-1.2 0412582604) CALCIUM (test code = 8.3 mg/dL 8.6-10.6 L 5841360719) T PROTEIN (test code = 6.3 g/dL 6.3-8.2 7532565754) ALBUMIN (test code = 3.5 g/dL 3.5-5 1706467859) ALK PHOS (test code = 100 U/L 34-122 1813839300) ALTv (test code = 17 U/L 5-35 1742-6) AST(SGOT) (test code = 28 U/L 13-40 0523387578) eGFR Calculation mL/min/1.73m2 (Non-) (test code = 8954799453) eGFR Calculation mL/min/1.73m2 () (test code = 0871721094) LAWRENCE (test code = LAWRENCE) Association of Glomerular Filtration Rate (GFR) and Staging of Kidney Disease* + --+ --+ ------+| GFR (mL/min/1.73 m2) ?| With Kidney Damage ?| ?Without Kidney Damage+ --------+ --------+ +| ?>90 ?| ?Stage one ?| ? Normal ?+ ---+ ---+ -------+| ?60-89 ?| ?Stage two ?| ? Decreased GFR ? + --+ --+ ------+| ?30-59 ?| ?Stage three ?| ? Stage three ? + --+ --+ ------+| ?15-29 ?| ?Stage four ? | ? Stage four ?+ ---+ ---+ -------+| ?<15 (or dialysis) ? ?| ?Stage five ? | ? Stage five ?+ ---+ ---+ -------+ *Each stage assumes the associated GFR level has been in effect for at least three months. ?Stages 1 to 5, with or without kidney disease, indicate chronic kidney disease. Notes: Determination of stages one and two (with eGFR >59mL/min/1.73 m2) requires estimation of kidney damage for at least three months as defined by structural or functional abnormalities of the kidney, manifested by either:Pathological abnormalities or Markers of kidney damage (including abnormalities in the composition of the blood or urine or abnormalities in imaging tests). Lab Interpretation Abnormal (test code = 32917-4) [facility] 12[facility]00 Test Item Value Reference Range Interpretation Comments MAGNESIUM (test code = 6694175821) 2.4 mg/dL 1.7-2.4 Lab Interpretation (test code = Normal 01075-2) [facility]2020-[facility]-18 12:33:00 Test Item Value Reference Range Interpretation Comments PHOSPHORUS (test code = 3670080500) 3.4 mg/dL 2.5-5 Lab Interpretation (test code = Normal 90198-7) [facility] HospitalSEDIMENTATION [id number] 12:15:00 Test Item Value Reference Range Interpretation Comments ESR (test code = See_Comment [Automated message] 5528132474) The system [employer] generated this result transmitted ref erence range: 0 - 20 m m/HR. The reference r whitney was not used to interpret this result as normal/abnor mal. Lab Interpretation (test Normal code = 20736-9) [facility] HospitalCB WITH [id number] 11:42:00 Test Item Value Reference Range Interpretation Comments WBC (test code = See_Comment [Automated 3690-2) message] The sy stem which generated this result transmitted reference range : 4.30 - 11.10 10*3/?L. The reference range was not used to interpret this result as normal/abnormal . RBC (test code = See_Comment [Automated 519-8) message] The sy stem which generated this result transmitted reference range : 3.93 - 5.25 10*6/?L. The reference range was not used to interpret this result as normal/abnormal . HGB (test code = 13.5 g/dL 11.6-15 718-7) HCT (test code = 40.9 % 35.7-45.2 4544-3) MCV (test code = 90.5 fL 80.6-95.5 787-2) MCH (test code = 29.9 pg 25.9-32.8 785-6) MCHC (test code = 33.0 g/dL 31.6-35.1 786-4) RDW-SD (test code = 46.3 fL 39-49.9 40895-0) RDW-CV (test code = 14.0 % 12-15.5 788-0) PLT (test code = See_Comment [Automated 777-3) message] The sy stem which generated this result transmitted reference range : 166 - 358 10*3/ ?L. The reference r whitney was not used to interpret this result as normal/abnormal . MPV (test code = 8.7 fL 9.5-12.9 L 81892-4) NRBC/100 WBC (test See_Comment [Automat ed code = 7434202869) message] The system which generated this result transmitted reference range : 0.0 - 10.0 /100 WBCs. The refer ence range was not u sed to interpret th is result as normal/abnormal . NRBC x10^3 (test code <0.01 See_Comment [Auto mated = 7646217893) message] The s ystem which generated this result transmitted reference range : 10*3/?L. The reference range was not used to interpret this result as normal/abnormal . GRAN MAT (NEUT) % 66.7 % (test code = 770-8) IMM GRAN % (test code 0.40 % = 3268123001) LYMPH % (test code = 22.6 % 736-9) MONO % (test code = 8.5 % 5905-5) EOS % (test code = 1.2 % 713-8) BASO % (test code = 0.6 % 706-2) GRAN MAT x10^3(ANC) 6.84 10*3/uL 1.88-7.09 (test code = 5680956610) IMM GRAN x10^3 (test 0.04 10*3/uL 0-0.06 code = 6901428523) LYMPH x10^3 (test code 2.31 10*3/uL 1.32-3.29 = 731-0) MONO x10^3 (test code 0.87 10*3/uL 0.33-0.92 = 742-7) EOS x10^3 (test code = 0.12 10*3/uL 0.03-0.39 711-2) BASO x10^3 (test code 0.06 10*3/uL 0.01-0.07 = 704-7) Lab Interpretation Abnormal (test code = 47871-9) [facility] [id number] 11:31:00 Test Item Value Reference Range Interpretation Comments PH (test code = 7.32-7.42 6360974237) PCO2 CARMEN (test code = See_Comment [Auto mated message] 5056827128) The system [employer] generated this result transmitted ref erence range: 41 - 51 mmHg. The reference r whitney was not used to interpret this result as normal/abnor mal. PO2 CARMEN (test code = See_Comment HH [Autom ated message] 7341663069) The system [employer] generated this result transmitted ref erence range: 25 - 40 mmHg. The reference r whitney was not used to interpret this result as normal/abnor mal. HCO3 CARMEN (test code = See_Comment [Auto mated message] 8776626930) The system [employer] generated this result transmitted ref erence range: 24 - 28 mEq/L. The reference r whitney was not used to interpret this result as normal/abnor mal. AC VBE(BEAKER) (test mEq/L code = 2582503516) Lab Interpretation (test Abnormal code = 94907-4) [facility] HospitalURIC [id number] 05:16:00 Test Item Value Reference Range Interpretation Comments URIC ACID (test code = 3446953454) 7.3 mg/dL 2.9-6 H Lab Interpretation (test code = Abnormal 88555-9) [facility]2020-06-18 05:16:00 Test Item Value Reference Range Interpretation Comments MAGNESIUM (test code = 3703391613) 2.4 mg/dL 1.7-2.4 Lab Interpretation (test code = Normal 42783-6) [facility]2020-06-18 05:16:00 Test Item Value Reference Range Interpretation Comments PHOSPHORUS (test code = 2372502186) 3.0 mg/dL 2.5-5 Lab Interpretation (test code = Normal 80135-3) [facility] HospitalN-TERMINAL [id number] 05:15:00 Test Item Value Reference Range Interpretation Comments NT-proBNP (test code 26 pg/mL See_Comment [Autom ated = 6210807186) message] The system which generated this result transmitted reference range : <=125. The reference range was not used to interpret this result as normal/abnormal . LAWRENCE (test code = LAWRENCE) Biotin has been reported to cause a negative bias, interpret results relative to patient's use of biotin. Lab Interpretation Normal (test code = 34307-2) [facility] HospitalGLYCOSYLATED HEMOGLOBIN (A1C)2020-02-10 05:14:00 Test Item Value Reference Interpretation Comments Range HGB A1C (test code = See_Comment [Autom ated 4548-4) message] The system which generated this result transmitted reference range : 4.0 - 6.0 % NGSP. The reference range was not used to interpret this result as normal/abnormal . LAWRENCE (test code = %A1C (NGSP) LAWRENCE) Interpretation (ADA)4.8-5.6 ? ? Normal or (Non-Diabetic Range)5.7-6.4 ? ? Increased Risk (Pre-Diabetic)>6.5 ?Diabetes Indicated Lab Interpretation Normal (test code = 51765-7) [facility] HospitalPROTEIN CREAT RATIO URINE [id number] 05:08:00 Test Item Value Reference Range Interpretation Comments T. PROT U (test code = 2888-6) 24 mg/dL CREAT U (test code = 4938885673) 155.6 mg/dL Protein/Creatinine Ratio Urine 0.0-2.0 (test code = 8721692463) [facility] HospitalSODIUM, URINE [id number] 05:04:00 Test Item Value Reference Range Interpretation Comments NA URINE (test code = 6155591868) 223 mmol/L [facility]CREATINE [id number] 05:03:00 Test Item Value Reference Range Interpretation Comments CK (test code = 7187526714) 123 U/L 33-194 Lab Interpretation (test code = Normal 15413-6) [facility] HospitalLIPID PANEL (72840)(TOTAL CHOLESTEROL, TRIGLYCERIDES, HDL)2020-02-10 04:58:00 Test Item Value Reference Range Interpretation Comments CHOL (test code = 133 mg/dL 120-200 2656930285) HDL (test code = 47 mg/dL >50 L 4961524333) HDLC RATIO (test code = See_Comment [Au tomated message] 8328104424) The system [employer] generated this result transmit hiral reference range : <=4.5. The refe rence range was not u sed to interpret th is result as normal/abnormal . TRIG (test code = 37 mg/dL 30-170 4831376756) LDL CHOL (test code = 79 mg/dL See_Comment [Auto mated message] 11098-0) The system [employer] generated this result transmit hiral reference range : <=160. The refe rence range was not u sed to interpret th is result as normal/abnormal . VLDL (test code = 7 mg/dL 5-60 1932682809) Lab Interpretation (test Abnormal code = 84126-9) [facility] HospitalAMMONIA, [id number] 00:53:00 Test Item Value Reference Range Interpretation Comments AMMONIA (test code = 4836345908) <9 9-33 L Lab Interpretation (test code = Abnormal 94885-9) [facility] HospitalETHANOL2020-06-18 00:17:00 Test Item Value Reference Range Interpretation Comments ALCOHOL (test code = <10 mg/dL 1425110950) LAWRENCE (test code = LAWRENCE) <10 Rpepmadg79-609 Toxic>100 Depression of NEON MOLDER>400 Fatalities Reported [facility] HospitalSALICYLATE2020-06-18 00:17:00 Test Item Value Reference Range Interpretation Comments SALICYLATE (test code <10 mg/L = 1338918769) LAWRENCE (test code = LAWRENCE) Therapeutic Range: ? Analgesic and Antipyretic Use ? 20-100 mg/L ? ? Anti-Inflammatory Use ? 100-250 mg/L Toxic Range: ? Greater than 300 mg/L [facility] HospitalACETAMINOPHEN2020-06-18 00:17:00 Test Item Value Reference Range Interpretation Comments ACETAMINOP (test code = <10.0 10-30 L 1276469148) LAWRENCE (test code = LAWRENCE) Toxic: Greater than 200 ug/mL @ 4 hour post ingestion or greater than 50 ug/mL @ 12 hour post ingestion Lab Interpretation (test Abnormal code = 01075-9) [facility] HospitalCT HEAD WO [id number] 00:04:13 No acute intracranial hemorrhage or mass effect. CT HEAD WO CONTRAST HISTORY: Altered mental status(AMS), unclear cause , possible meth use andexited delirium. COMPARISON: None available. ? TECHNIQUE: Routine unenhanced brain CT. ? FINDINGS: No acute intracranial hemorrhage, extracerebral fluid collection, midlineshift or mass effect. No acute transcortical infarction. Right inferior basal ganglia dilatedperivascular space. Ventricles are normal. Cerebral volume is age appropriate. No depressed calvarial fracture. Visualized orbits are unremarkable. Visualized paranasal sinuses are essentially clear. [facility], Radiant Results Inft User - 02/09/2020 7:05 PM CDTCT HEAD WO CONTRASTHISTORY: Altered mental status (AMS), unclear cause , possible meth use andexited delirium. COMPARISON: None available. TECHNIQUE: Routine unenhanced brain CT. FINDINGS:No acute intracranial hemorrhage, extracerebral fluid collection, midlineshift or mass effect. No acute transcortical infarction. Right inferior basal ganglia dilatedperivascular space. Ventricles are normal. Cerebral volume is age appropriate. No depressed calvarial fracture. Visualized orbits are unremarkable. Visualized paranasal sinuses are essentially clear. IMPRESSIONNo acute intracranial hemorrhage or mass effect.[facility] COVID-19 (ID NOW RAPID TESTING)2020-02-09 23:54:00 Test Item Value Reference Range Interpretation Comments SARS-CoV-2 Rapid ID NOW Not Detected Not Detected (test code = 14782-2) LAWRENCE (test code = LAWRENCE) ID NOW COVID-19 Assay is an isothermal nucleic acid amplification test intended for the qualitative detection of nucleic acid from SARS-CoV-2 viral RNA in nasopharyngeal (ARCHIVES DIRECTOR) specimens. It is used under Emergency Use Authorization (EUA) by FDA. The limit of detection (LOD) of the assay is 125 Genome Equivalents/mL. A positive result is indicative of the presence of SARS-CoV-2 RNA. ?Clinical correlation with patient history and other diagnostic information is necessary to determine patient infection status. A negative (Not Detected) result does not preclude SARS-CoV-2 infection. In patients with clinical symptoms and other tests that are consistent with SARS-CoV-2 infection, negative results should be treated as presumptive negative and a new specimen should be tested with alternative PCR molecular test. Invalid: Please collect a new specimen for repeat patient testing if clinically indicated. Lab Interpretation Normal (test code = 27034-3) [facility] HospitalTHYROID STIMULATING [id number] 22:58:00 Test Item Value Reference Range Interpretation Comments TSH (test code = See_Comment [Automated message] 6456981906) The system [employer] generated this result transmitted ref erence range: 0.45 - 4 .70 mIU/L. The refe rence range was not u sed to interpret this result as normal/abnor mal. Lab Interpretation (test Normal code = 48057-1) [facility] HospitalCREATINE [id number] 22:39:00 Test Item Value Reference Range Interpretation Comments CK (test code = 3036969112) 121 U/L 33-194 Lab Interpretation (test code = Normal 78479-9) [facility] HospitalCOMP. METABOLIC PANEL (96468)2020-02-09 22:27:00 Test Item Value Reference Range Interpretation Comments NA (test code = 142 mmol/L 135-145 9596567226) K (test code = 3.6 mmol/L 3.5-5 5885307711) CL (test code = 113 mmol/L 98-108 H 7569178779) CO2 TOTAL (test code = 22 mmol/L 23-31 L 7472239112) AGAP (test code = 2-16 1362592043) BUN (test code = 10 mg/dL 7-23 9204050819) GLUCOSE (test code = 107 mg/dL 70-110 0129020386) CREATININE (test code = 1.13 mg/dL 0.5-1.04 H 8142932819) TOTAL BILI (test code = 0.4 mg/dL 0.1-1.3 6177317976) CALCIUM (test code = 8.6 mg/dL 8.6-10.6 5746835947) T PROTEIN (test code = 7.0 g/dL 6.3-8.2 5251757566) ALBUMIN (test code = 4.1 g/dL 3.5-5 6329215406) ALK PHOS (test code = 103 U/L 34-122 9988401676) ALTv (test code = 19 U/L 5-35 1742-6) AST(SGOT) (test code = 26 U/L 13-40 6703228085) eGFR Calculation mL/min/1.73m2 (Non-) (test code = 1447998245) eGFR Calculation mL/min/1.73m2 () (test code = 7306990556) LAWRENCE (test code = LAWRENCE) Association of Glomerular Filtration Rate (GFR) and Staging of Kidney Disease* + --+ --+ ------+| GFR (mL/min/1.73 m2) ?| With Kidney Damage ?| ?Without Kidney Damage+ --------+ --------+ +| ?>90 ?| ?Stage one ?| ? Normal ?+ ---+ ---+ -------+| ?60-89 ?| ?Stage two ?| ? Decreased GFR ? + --+ --+ ------+| ?30-59 ?| ?Stage three ?| ? Stage three ? + --+ --+ ------+| ?15-29 ?| ?Stage four ? | ? Stage four ?+ ---+ ---+ -------+| ?<15 (or dialysis) ? ?| ?Stage five ? | ? Stage five ?+ ---+ ---+ -------+ *Each stage assumes the associated GFR level has been in effect for at least three months. ?Stages 1 to 5, with or without kidney disease, indicate chronic kidney disease. Notes: Determination of stages one and two (with eGFR >59mL/min/1.73 m2) requires estimation of kidney damage for at least three months as defined by structural or functional abnormalities of the kidney, manifested by either:Pathological abnormalities or Markers of kidney damage (including abnormalities in the composition of the blood or urine or abnormalities in imaging tests). Lab Interpretation Abnormal (test code = 22329-3) [facility] / [facility] - DRUG SCREEN [id number] 22:27:00 Test Item Value Reference Range Interpretation Comments BENZO U (test code = Negative Negative 4362624657) MYAH U (test code = Negative Negative 6806081685) AMPHET (test code = Presumptive Positive Negative A 9196604740) THC (test code = Negative Negative 8099579442) METHADONE (test code = Negative Negative 5533546328) Meth U (test code = Presumptive Positive Negative A 4803010805) OPIATES (test code = Negative Negative 8354859095) Cocaine Metabolite (test Negative Negative code = 4302280723) PROPOXY (test code = Negative Negative 2930641329) Tric U (test code = Negative Negative 7320272719) PCP (test code = Negative Negative 3607108519) OXYCOD (test code = Negative Negative 3287600412) LAWRENCE (test code = LAWRENCE) Urine Drug Cutoff Ranges Benzodiazepines: ? ? 150 ng/mLBarbiturates: ?200 ng/mLAmphetamine: ? 500 ng/mLCannabinoids: ?50 ?ng/mLMethadone: ? 200 ng/mLMethamphetamine: ? ? 500 ng/mL Opiates: ? 100 ng/mL or 2000 ng/mLCocaine: ? 150 ng/mLPropoxyphene: ?300 ng/mLTricyclics: ?300 ng/mLOxycodone: ? 100 ng/mLPCP: ? 25 ?ng/mL The results are to be used only for medical (i.e., treatment) purposes. Unconfirmed screening results must not be used for non-medical purposes (e.g., employment testing, legal testing). Lab Interpretation (test Abnormal code = 37594-4) [facility] HospitalURINALYSIS2020-06-17 22:22:00 Test Item Value Reference Range Interpretation Comments APPEARANCE (test code = Clear Clear 0473407406) COLOR (test code = Yellow Yellow 3858295845) PH (test code = 4.8-8.0 3770178390) SP GRAVITY (test code = 1.003-1.030 9962448116) GLU U QUAL (test code = Normal Normal 2776618135) BLOOD (test code = Negative Negative 8317219789) KETONES (test code = Negative Negative 6071356588) PROTEIN (test code = 30 mg/dL Negative A 2887-8) UROBILIN (test code = 2.0 mg/dL Normal A 4906413567) BILIRUBIN (test code = Negative Negative 3579391588) NITRITE (test code = Negative Negative 8771457959) LEUK JOVAN (test code = Negative Negative 2190854340) RBC/HPF (test code = <1 See_Comment [Autom ated message] 9965894230) The system [employer] generated this result transmit hiral reference range : 0 - 3 HPF. The refe rence range was not u sed to interpret th is result as normal/abnormal . WBC/HPF (test code = See_Comment [Autom ated message] 2174289364) The system [employer] generated this result transmit hiral reference range : 0 - 5 HPF. The refe rence range was not u sed to interpret th is result as normal/abnormal . BACTERIA (test code = Negative Negative 1723063891) MUCOUS (test code = Slight Negative LPF A 1553157140) SQ EPITH (test code = <1 HPF 6727212469) Lab Interpretation (test Abnormal code = 30545-8) [facility] WITH [id number] 22:12:00 Test Item Value Reference Range Interpretation Comments WBC (test code = See_Comment [Automated 6690-2) message] The sy stem which generated this result transmitted reference range : 4.30 - 11.10 10*3/?L. The reference range was not used to interpret this result as normal/abnormal . RBC (test code = See_Comment [Automated 159-8) message] The sy stem which generated this result transmitted reference range : 3.93 - 5.25 10*6/?L. The reference range was not used to interpret this result as normal/abnormal . HGB (test code = 13.7 g/dL 11.6-15 718-7) HCT (test code = 40.7 % 35.7-45.2 4544-3) MCV (test code = 88.7 fL 80.6-95.5 787-2) MCH (test code = 29.8 pg 25.9-32.8 785-6) MCHC (test code = 33.7 g/dL 31.6-35.1 786-4) RDW-SD (test code = 44.6 fL 39-49.9 54697-8) RDW-CV (test code = 13.6 % 12-15.5 788-0) PLT (test code = See_Comment [Automated 777-3) message] The sy stem which generated this result transmitted reference range : 166 - 358 10*3/ ?L. The reference r whitney was not used to interpret this result as normal/abnormal . MPV (test code = 9.0 fL 9.5-12.9 L 21746-8) NRBC/100 WBC (test See_Comment [Automat ed code = 3578957603) message] The system which generated this result transmitted reference range : 0.0 - 10.0 /100 WBCs. The refer ence range was not u sed to interpret th is result as normal/abnormal . NRBC x10^3 (test code <0.01 See_Comment [Auto mated = 5892660260) message] The s ystem which generated this result transmitted reference range : 10*3/?L. The reference range was not used to interpret this result as normal/abnormal . GRAN MAT (NEUT) % 74.6 % (test code = 770-8) IMM GRAN % (test code 0.40 % = 4503857773) LYMPH % (test code = 16.4 % 736-9) MONO % (test code = 7.7 % 5905-5) EOS % (test code = 0.4 % 713-8) BASO % (test code = 0.5 % 706-2) GRAN MAT x10^3(ANC) 7.84 10*3/uL 1.88-7.09 H (test code = 8358046949) IMM GRAN x10^3 (test 0.04 10*3/uL 0-0.06 code = 5615676564) LYMPH x10^3 (test code 1.72 10*3/uL 1.32-3.29 = 731-0) MONO x10^3 (test code 0.81 10*3/uL 0.33-0.92 = 742-7) EOS x10^3 (test code = 0.04 10*3/uL 0.03-0.39 711-2) BASO x10^3 (test code 0.05 10*3/uL 0.01-0.07 = 704-7) Lab Interpretation Abnormal (test code = 38930-0) [facility] HospitalPOCT [id number] 21:59:00 Test Item Value Reference Range Interpretation Comments POCT PREG (test code = 1605) negative Lab Interpretation (test code = Normal 41875-8) [facility]"
--- NOTE | 2022-06-21 18:58 | ER ---
Nurse's Notes [facility] Name: Jewels Webber Age: 32 yrs Sex: Female : 1990 Arrival Date: 06/21/2022 Time: 17:23 Bed IW3 Private MD: Diagnosis: Local infection of the skin and subcutaneous tissue, unspecified Presentation: 06/21 17:42 Chief complaint: Patient states: Pt reports sores on face that will not heal. Multiple kb3 dried sores noted around mouth. Coronavirus screen: Vaccine status: Patient reports receiving the 2nd dose of the covid vaccine. Client denies travel out of the [place] in the last 14 days. Ebola Screen: Patient negative for fever greater than or equal to 101.5 degrees Fahrenheit, and additional compatible Ebola Virus Disease symptoms Patient denies exposure to infectious person. Patient denies travel to an Ebola-affected area in the 21 days before illness onset. Initial Sepsis Screen: Does the patient meet any 2 criteria? No. Patient's initial sepsis screen is negative. Does the patient have a suspected source of infection? No. Patient's initial sepsis screen is negative. Risk Assessment: Do you want to hurt yourself or someone else? Patient reports no desire to harm self or others. Onset of symptoms was May 31, 2022. 17:42 Method Of Arrival: Ambulatory kb3 17:42 Acuity: DANIEL 4 kb3 Triage Assessment: 17:46 General: Appears in no apparent distress. Behavior is calm, cooperative. Pain: kb3 Complains of pain in mouth Pain does not radiate. Pain currently is 3 out of 10 on a pain scale. 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 - Social history:: Smoking status: Patient reports the use of cigarette tobacco products, smokes one-half pack cigarettes per day, Reported history of juuling and/or vaping. Screenin:14 Abuse screen: Denies threats or abuse. Denies injuries from another. Nutritional kb3 screening: No deficits noted. Tuberculosis screening: No symptoms or risk factors identified. Fall Risk None identified. Assessment: 19:14 General: Appears in no apparent distress. Behavior is calm, cooperative, Pt to triage kb3 to be seen by provider and discharged. Derm:. Vital Signs: 17:42 BP 114 / 77; Pulse 83; Resp 16; Temp 98; Pulse Ox 99% ; Weight 74.84 kg; Height 6 ft. 0 kb3 in. (182.88 cm); Pain 3/10; 17:42 Body Mass Index 22.38 (74.84 kg, 182.88 cm) kb3 ED Course: 17:23 Patient arrived in ED. am2 17:30 Zac Hatch PA is PHCP. cp 17:30 Luc Stephen DO is Attending Physician. cp 17:46 Triage completed. kb3 17:46 Arm band placed on left wrist. kb3 19:14 Patient has correct armband on for positive identification. kb3 19:14 No provider procedures requiring assistance completed. Patient did not have IV access kb3 during this emergency room visit. Administered Medications: No medications were administered Medication: 19:14 VIS not applicable for this client. kb3 Outcome: 18:57 Discharge ordered by MD. cp 19:14 Discharged to home ambulatory. kb3 19:14 Condition: good 19:14 Discharge instructions given to patient, Instructed on discharge instructions, follow up and referral plans. medication usage, Demonstrated understanding of instructions, follow-up care, medications, Prescriptions given X 2. 19:16 Patient left the ED. kb3 Signatures: Zac Hatch PA PA cp Moreno, Amanda am2 Caroline Negron, RN RN kb3
--- NOTE | 2022-06-21 18:58 | EDPHYS ---
Physician Documentation [facility] Name: Jewels Webber Age: 32 yrs Sex: Female : 1990 Arrival Date: 06/21/2022 Time: 17:23 Bed IW3 Private MD: ED Physician Luc Stephen HPI: 06/21 18:50 This 32 yrs old Female presents to ER via Ambulatory with complaints of Skin Sore(s) - cp facial. 18:50 The patient presents with cellulitis of the face. Description: draining, erythematous, cp swollen. Onset: The symptoms/episode began/occurred 3 week(s) ago. Possible cause(s): unknown. Associated signs and symptoms: Pertinent positives: drainage, swelling, Pertinent negatives: fever, headache. Severity of symptoms: in the emergency department the symptoms are unchanged, despite home interventions. 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 - Social history:: Smoking status: Patient reports the use of cigarette tobacco products, smokes one-half pack cigarettes per day, Reported history of juuling and/or vaping. ROS: 18:52 Constitutional: Negative for body aches, chills, fever, poor PO intake. cp 18:52 Cardiovascular: Negative for chest pain, palpitations. 18:52 Respiratory: Negative for cough, shortness of breath, wheezing. 18:52 Abdomen/GI: Negative for abdominal pain, nausea, vomiting, and diarrhea. 18:52 Skin: Positive for cellulitis, of the face. 18:52 Neuro: Negative for dizziness, headache. 18:52 All other systems are negative. Exam: 18:55 Constitutional: The patient appears in no acute distress, alert, awake, non-toxic, well cp developed, well nourished. 18:55 Head/face: Noted is rash, erythematous, papular, swelling, that is mild, of the chin and right jaw. 18:55 Chest/axilla: Inspection: normal. cp 18:55 Cardiovascular: Rate: normal. cp 18:55 Respiratory: the patient does not display signs of respiratory distress, Respirations: normal. Vital Signs: 17:42 BP 114 / 77; Pulse 83; Resp 16; Temp 98; Pulse Ox 99% ; Weight 74.84 kg; Height 6 ft. 0 kb3 in. (182.88 cm); Pain 3/10; 17:42 Body Mass Index 22.38 (74.84 kg, 182.88 cm) kb3 MDM: 18:57 Patient medically screened. cp 18:57 Differential diagnosis: abscess, cellulitis, impetigo. cp 18:57 Data reviewed: vital signs, nurses notes. cp 18:57 Counseling: I had a detailed discussion with the patient and/or guardian regarding: the cp historical points, exam findings, and any diagnostic results supporting the discharge/admit diagnosis, to return to the emergency department if symptoms worsen or persist or if there are any questions or concerns that arise at home. Administered Medications: No medications were administered Disposition: 19:14 Co-signature as Attending Physician, Luc Stephen DO I was immediately available on-site ms3 in the Emergency Department for consultation in the care of the patient. Disposition Summary: 06/21/22 18:57 Discharge Ordered Location: Home cp Problem: new cp Symptoms: are unchanged cp Condition: Stable cp Diagnosis - Local infection of the skin and subcutaneous tissue, unspecified cp Followup: cp - With: Private Physician - When: 2 - 3 days - Reason: Worsening of condition Discharge Instructions: - Discharge Summary Sheet cp Forms: - Medication Reconciliation Form cp - Thank You Letter cp - Antibiotic Education cp - Prescription Opioid Use cp Prescriptions: - mupirocin 2 % Topical ointment - apply 1 application by TOPICAL route 3 times per day for 10 days; 30 gram; cp Refills: 0, Product Selection Permitted - Clindamycin HCl 300 mg Oral Capsule - take 1 capsule by ORAL route every 6 hours for 10 days; 40 capsule; Refills: 0, cp Product Selection Permitted Signatures: Zac Hatch PA PA cp Sims, Marcus, DO DO ms3 Caroline Negron RN RN kb3 Corrections: (The following items were deleted from the chart) 18:52 18:51 This 32 yrs old Female presents to ER via Ambulatory with complaints of Skin cp Sore(s) - facial. cp
[2022-06-21 19:24] VITALS: BP 114/77; TEMP 98; O2SAT 99
== END 2022-06-21 19:16 | disposition home or self-care (01) ==
LOC: ER 17:21
DX: L03.211 Cellulitis of face (principal); F17.210 Nicotine dependence, cigarettes, uncomplicated
CPT/HCPCS: 99282

== ENCOUNTER 2022-08-11 10:45 | Emergency (ER) | payer SELFPAY ==
[2022-08-11 11:03] LABS: Urine Blood 2+ (Negative); Urine Glucose Negative (Negative); Urine Protein Negative (Negative); Urine Specific Gravity 1.025 (1.005-1.030)
--- OUTSIDE RECORDS SUMMARY | 2022-08-11 11:03 | XMS REPORT | Continuity of Care Document ---
:1990 Author Organization [facility] t Address [address] [place] [address] Care Team Providers Name Role Phone PCP, [...] amine 6-17 ity of abuse abuse 00:00: [address] Branch 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 6-17 ity of encephalop [place] 00 [facility] Allergies, Adverse Reactions, Alerts Allergy Allergy Status Severity Reaction(s) Onset Inactive Treating Comm ents Source Name Type Date Date Clinician No Known DA Active U [facility] Drug 2-27 Allergie 00:00: s 00 Unable DA Active U [facility] to 2-27 Assess 00:00: 00 NO KNOWN Drug Active Univers ALLERGIE Class ity of S [facility] Social History Social Habit Start Date Stop Date Quantity Comments Source Sex Assigned At [facility] y of [facility] Exposure to Not sure [facility] SARS-CoV-2 [facility] (event) Sweet Tobacco use and 2020-02-10 2020-02-10 Never used [facility] y of exposure 00:00:00 00:00:00 [facility] Alcohol intake 2020-02-10 2020-02-10 Current drinker Unive rsity of 00:00:00 00:00:00 of alcohol [facility] (finding) Sweet Smoking Status Start Date Stop Date Source Current some day smoker 2020-02-10 00:00:00 [facility] ersity of [facility] Unknown if ever smoked [facility] Medications Ordered Filled Start Stop Current Ordering Indication Dosage Frequency Signature Comments Components Source Medication Medication Date Date Medication? Clinician (SIG) Name Name thiamine Yes 100mg 100 mg, Unive rs (VITAMIN 6-18 Oral, ity of B1) tablet 14:00: DAILY, [place] 100 mg 00 First dose [facility] 02/10/20 at 0900, Until Discontinu ed, Routine multivitami 2020-0 Yes 1{tbl} 1 tablet, Univers n tablet 1 6-18 Oral, ity of tablet 14:00: DAILY, [place] 00 First dose [facility] 02/10/20 at 0900, Until Discontinu ed, Routine D5W-LR IV 2020-0 Yes 1000mL at 100 Univ ers infusion 6-18 mL/hr, IV ity of 1,000 mL 05:15: Infusion, [facility] 00 CONTINUOUS Medical , Starting Branch [facility] 02/10/20 at 0015, Until Discontinu ed, Routine nicotine 2020-0 Yes 1{patch 1 Patch, Un cecilio (NICODERM) 6-18 } Topical, ity o f 14 mg/24 hr 05:15: Administer [place] patch 1 00 over 24 Medical Patch Hours, Branch Q24H, First dose on Whit 02/10/20 at 0015, Until Discontinu ed, Routine [...] is not a viable option NaCl 0.9% 2019- No 1000mL at 999 Uni vers (NS) [...] Restraint: Yes No known No Univers medications [facility] No known No Univers medications [facility] Vital Signs Vital Name Observation Time Observation Value Comments Source Systolic blood 2020-02-10 12:17:00 115 mm[Hg] Univer sity of pressure [facility] Diastolic blood 2020-02-10 12:17:00 69 mm[Hg] [facility] Heart rate 2020-02-10 12:17:00 69 /min [facility] Body temperature 2020-02-10 12:17:00 37.11 Fay [facility] Respiratory rate 2020-02-10 12:17:00 18 /min [facility] Oxygen saturation in 2020-02-10 12:17:00 100 /min [facility] Arterial blood by [facility] Pulse oximetry Branch Body weight 2020-02-09 21:49:00 72.576 kg [facility] [place] [facility] BMI 2020-02-09 21:49:00 22.96 kg/m2 [facility] [place] [facility] Systolic blood 2020-02-10 12:17:00 115 mm[Hg] Univer sity of pressure [place] [facility] Diastolic blood 2020-02-10 12:17:00 69 mm[Hg] Unive rsity of pressure [place] [facility] Heart rate 2020-02-10 12:17:00 69 /min [facility] [place] [facility] Body temperature 2020-02-10 12:17:00 37.11 Fay Univ [facility] [place] [facility] Respiratory rate 2020-02-10 12:17:00 18 /min Univ [facility] [place] [facility] Oxygen saturation in 2020-02-10 12:17:00 100 /min University of Arterial blood by [facility] Pulse oximetry Branch Body weight 2020-02-09 21:49:00 72.576 kg [facility] [place] [facility] BMI 2020-02-09 21:49:00 22.96 kg/m2 [facility] [place] [facility] Respiratory rate 2020-01-13 11:30:00 28 /min Univ [facility] [place] [facility] Heart rate 2020-01-13 11:30:00 121 /min [facility] [place] [facility] Body height 2020-01-13 10:57:00 177.8 cm [facility] [place] [facility] Body weight 2020-01-13 10:57:00 68.04 kg [facility] [place] [facility] BMI 2020-01-13 10:57:00 21.52 kg/m2 [facility] [place] [facility] Oxygen saturation in 2020-01-13 10:57:00 97 /min University of Arterial blood by [facility] Pulse oximetry Branch Systolic blood 2020-01-13 10:57:00 142 mm[Hg] Univer sity of pressure [place] [facility] Diastolic blood 2020-01-13 10:57:00 97 mm[Hg] Unive rsity of pressure [place] [facility] Body temperature 2020-01-13 10:57:00 37.67 Fay Univ [facility] [place] [facility] Respiratory rate 2020-01-13 11:30:00 28 /min Univ [facility] [place] [facility] Heart rate 2020-01-13 11:30:00 121 /min [facility] [place] [facility] Body height 2020-01-13 10:57:00 177.8 cm Univers ty [facility] Body weight 2020-01-13 10:57:00 68.04 kg Universi ty [facility] BMI 2020-01-13 10:57:00 21.52 kg/m2 [facility] Oxygen saturation in 2020-01-13 10:57:00 97 /min University of Arterial blood by [facility] Pulse oximetry Branch Systolic blood 2020-01-13 10:57:00 142 mm[Hg] Univer sity of pressure [facility] Diastolic blood 2020-01-13 10:57:00 97 mm[Hg] Unive rsity of [facility] Body temperature 2020-01-13 10:57:00 37.67 Fay [facility] Respiratory 2020-10-22 16:27:53 No respiratory distress /min 02 Sat by Pulse 2020-10-22 16:27:53 100 /min Oximetry Body Mass Index 2020-10-22 16:27:53 23.4 Height 2020-10-22 16:27:53 185\\S\\72.83 Pulse Rate 2020-10-22 16:27:53 75 /min Respiratory Rate 2020-10-22 16:27:53 18 /min Temperature 2020-10-22 16:27:53 36.7\\S\\98.1 Weight 2020-10-22 16:27:53 76292\\S\\2821.917 Respiratory 2020-10-22 16:11:05 No respiratory distress /min 02 Sat by Pulse 2020-10-22 16:11:05 100 /min Oximetry Body Mass Index 2020-10-22 16:11:05 23.4 Height 2020-10-22 16:11:05 185\\S\\72.83 Pulse Rate 2020-10-22 16:11:05 75 /min Respiratory Rate 2020-10-22 16:11:05 18 /min Temperature 2020-10-22 16:11:05 36.7\\S\\98.1 Weight 2020-10-22 16:11:05 56116\\S\\2821.917 Respiratory 2020-10-22 16:10:35 No respiratory distress /min 02 Sat by Pulse 2020-10-22 16:10:35 100 /min Oximetry Body Mass Index 2020-10-22 16:10:35 23.4 Height 2020-10-22 16:10:35 185\\S\\72.83 Pulse Rate 2020-10-22 16:10:35 75 /min Respiratory Rate 2020-10-22 16:10:35 18 /min Temperature 2020-10-22 16:10:35 36.7\\S\\98.1 Weight 2020-10-22 16:10:35 32644\\S\\2821.917 Respiratory 2020-10-22 16:10:04 No respiratory distress /min 02 Sat by Pulse 2020-10-22 16:10:04 100 /min Oximetry Body Mass Index 2020-10-22 16:10:04 23.4 Height 2020-10-22 16:10:04 185\\S\\72.83 Pulse Rate 2020-10-22 16:10:04 75 /min Respiratory Rate 2020-10-22 16:10:04 18 /min Temperature 2020-10-22 16:10:04 36.7\\S\\98.1 Weight 2020-10-22 16:10:04 42551\\S\\2821.917 Respiratory 2020-10-22 16:09:34 No respiratory distress /min 02 Sat by Pulse 2020-10-22 16:09:34 100 /min Oximetry Body Mass Index 2020-10-22 16:09:34 23.4 Height 2020-10-22 16:09:34 185\\S\\72.83 Pulse Rate 2020-10-22 16:09:34 75 /min Respiratory Rate 2020-10-22 16:09:34 18 /min Temperature 2020-10-22 16:09:34 36.7\\S\\98.1 Weight 2020-10-22 16:09:34 08210\\S\\2821.917 Respiratory 2020-10-22 14:36:24 No respiratory distress /min 02 Sat by Pulse 2020-10-22 14:36:24 99 /min Oximetry Body Mass Index 2020-10-22 14:36:24 23.4 Height 2020-10-22 14:36:24 185\\S\\72.83 Pulse Rate 2020-10-22 14:36:24 84 /min Respiratory Rate 2020-10-22 14:36:24 18 /min Temperature 2020-10-22 14:36:24 36.7\\S\\98.1 Weight 2020-10-22 14:36:24 99030\\S\\2821.917 02 Sat by Pulse 2020-10-22 14:11:58 99 /min Oximetry Body Mass Index 2020-10-22 14:11:58 23.4 Height 2020-10-22 14:11:58 185\\S\\72.83 Pulse Rate 2020-10-22 14:11:58 84 /min Respiratory Rate 2020-10-22 14:11:58 18 /min Temperature 2020-10-22 14:11:58 36.7\\S\\98.1 Weight 2020-10-22 14:11:58 61294\\S\\2821.917 Respiratory 2020-10-22 14:11:58 No respiratory distress /min Respiratory 2020-10-22 14:06:23 No respiratory distress /min 02 Sat by Pulse 2020-10-22 14:06:23 99 /min Oximetry Body Mass Index 2020-10-22 14:06:23 23.4 Height 2020-10-22 14:06:23 185\\S\\72.83 Pulse Rate 2020-10-22 14:06:23 81 /min Respiratory Rate 2020-10-22 14:06:23 18 /min Temperature 2020-10-22 14:06:23 36.7\\S\\98.1 Weight 2020-10-22 14:06:23 87835\\S\\2821.917 Respiratory 2020-10-22 01:23:43 No respiratory distress /min Body Mass Index 2020-10-22 01:23:43 23.4 Height 2020-10-22 01:23:43 185\\S\\72.83 Weight 2020-10-22 01:23:43 57657\\S\\2821.917 Respiratory 2020-10-22 00:30:33 No respiratory distress /min Body Mass Index 2020-10-22 00:30:33 23.4 Height 2020-10-22 00:30:33 185\\S\\72.83 Weight 2020-10-22 00:30:33 98966\\S\\2821.917 Respiratory 2020-10-22 00:30:03 No respiratory distress /min Body Mass Index 2020-10-22 00:30:03 23.4 Height 2020-10-22 00:30:03 185\\S\\72.83 Weight 2020-10-22 00:30:03 99666\\S\\2821.917 Respiratory 2020-10-21 23:07:02 No respiratory distress /min Body Mass Index 2020-10-21 23:07:02 23.4 Height 2020-10-21 23:07:02 185\\S\\72.83 Weight 2020-10-21 23:07:02 31370\\S\\2821.917 Respiratory 2020-10-21 23:06:01 No respiratory distress /min Respiratory 2020-10-21 23:04:59 No respiratory distress /min WEIGHT 2020-10-21 23:04:00 80 kg HEIGHT 2020-10-21 23:04:00 185 cm Procedures Procedure Date / Time Performing Clinician Source Performed XR ANKLE 3+ VW RIGHT 2020-06-26 19:40:55 [facility] XR HEEL 2+ VW RIGHT 2020-06-26 19:40:55 Katelyn Zhou [facility] PHOSPHORUS 2020-02-10 11:26:00 Gaby raheem [facility] MAGNESIUM 2020-02-10 11:26:00 Gaby raheem [facility] FOLATE 2020-02-10 11:26:00 Gaby [facility] COMP. METABOLIC PANEL 2020-02-10 11:26:00 Gaby [facility] ([id number]) [facility] SEDIMENTATION RATE 2020-02-10 11:26:00 Estephania Griffin [facility] CBC WITH DIFFERENTIAL 2020-02-10 11:26:00 Gaby [facility] ACUTE CARE VENOUS BLOOD 2020-02-10 11:25:00 Estephania Griffin [facility] GAS [facility] AMMONIA, PLASMA 2020-02-10 00:06:[address] [facility] CT HEAD WO CONTRAST 2020-02-09 23:58:22 Marlon Maurer [facility] COVID-19 (ID NOW RAPID 2020-02-09 22:53:00 Marlon Maurer [facility] TESTING) Medical Branch CREATINE KINASE 2020-02-09 22:17:00 Estephania Griffin [facility] SALICYLATE 2020-02-09 22:17:[address] [facility] ETHANOL 2020-02-09 22:17:[address] [facility] POCT TEST 2020-02-09 21:59:00 Marlon Maurer [facility] ADC / LCC - DRUG SCREEN 2020-02-09 21:58:00 Marlon Maurer [facility] TRIAGE [facility] PROTEIN CREAT RATIO 2020-02-09 21:57:00 Estephania Griffin [facility] URINE RANDOM Medical Branch PHOSPHORUS 2020-02-09 21:57:00 Gaby raheem [facility] CREATINE KINASE 2020-02-09 21:57:[address] [facility] URIC ACID 2020-02-09 21:57:00 Gaby raheem [facility] MAGNESIUM 2020-02-09 21:57:00 Gaby [facility] THYROID STIMULATING 2020-02-09 21:57:00 Marlon Maurer [facility] HORMONE [facility] Branch COMP. METABOLIC PANEL 2020-02-09 21:57:00 Marlon Maurer [facility] ([id number]) Medical Branch LIPID PANEL 2020-02-09 21:57:00 Gaby raheem [facility] ([id number])(TOTAL Medical Branch CHOLESTEROL, TRIGLYCERIDES, HDL) CBC WITH DIFFERENTIAL 2020-02-09 21:57:[address] [facility] GLYCOSYLATED HEMOGLOBIN 2020-02-09 21:57:00 Estephania Griffin [facility] (A1C) Medical Branch URINALYSIS 2020-02-09 21:57:[address] [facility] N-TERMINAL PRO-BNP 2020-02-09 21:57:00 Estephania Griffinit y [facility] SODIUM, URINE RANDOM 2020-02-09 21:57:00 Gaby Estephania [facility] EKG-12 LEAD 2020-02-09 21:50:[address] [facility] Encounters Start End Encounter Admission Attending Care Care Encounter Source Date/Time Date/Time Type Type Clinicians Facility Department ID 2020-10-21 Inpatient [facility] [id number] [facility] 22:43:00 08 2020-10-21 2020-10-21 Emergency [facility] [id number] [facility] 22:43:00 22:43:00 08 2020-06-26 2020-06-26 Hospital Radiology [facility] [id number] Univers 12:56:30 23:59:00 Encounter Calvin [id number] ity of [place] 4.2.7.2.686 [facility] [id number] [facility] [address]07 [place] 2020-06-26 2020-06-26 Hospital Radiology [facility] [id number] 12:56:30 23:59:00 Encounter Calvin [id number] [place] [address] [place] [address] [id number] 2020-06-26 2020-06-26 Outpatient R RADIOLOGY [facility] [id number] Univers [facility]:00[facility]00 [facility] 2020-[facility] 2020-02-10 Outpatient [facility] [id number] Univers 16:46:58 12:38:00 ESTEPHANIA [facility] 2020-02-09 2020-02-10 Emergency Marlon Maurer [facility] 1.2.840 .114 [id number] Univers 16:46:58 12:38:00 [place] 350.1.13.10 ity of Estephania Griffin 4.2.7.2.686 [facility] [id number] [facility] 081 [place] 2020-02-09 2020-02-10 [facility] 1.2.840 .114 [id number] 16:46:58 12:38:00 [place] 350.1.13.10 [place]ia [place] 4.2.7.2.686 [place] [id number] [facility] 2020-01-13 2020-01-13 [facility] [id number] Univers 06:02:03 06:59:00 [facility].13.10 [facility] [address] [place] [address] [id number] [place] [address] Branch 2020-01-13 2020-01-13 [facility] [id number] 06:02:03 06:59:00 Marlon Li 350.1.13.10 [place] 4.2.7.2.686 [place] [id number] [facility] 2020-01-13 2020-01-13 Emergency X [facility] ERT [id number] Univers 06:02:03 06:02:03 [facility] Results Test Description Test Time [...] SARS-CoV-2 PCR Result:) Complete Blood Count Auto [id number] 00:08:00 Test Item Value Reference Range Interpretation [...] code = NRBCP) 0 % Comprehensive Metabolic [id number] 00:08:00 Test Item Value Reference Range Interpretation [...] 146 U/L 46-116 H = ALP) Ethanol [id number] 00:08:00 Test Item Value Reference Range Interpretation Comments Ethanol (test code = ETOH) < 3 mg/dL XR ANKLE 3+ VW [id number] 22:17:14Suspect avulsion type injury of the medial [...] - 06/26/2020 4:18 PM CSTPatient name: MERCY WONG: 1990 30 years EXAMINATION: XR ANKLE 3+ VW RIGHT, XR HEEL 2+ VW RIGHTOrdering Physician: KATELYN ZHOU CLINICAL HISTORY:Closed displaced fracture of lateral malleolus of right fibula, ini tialencounter COMPARISON:NoneTECHNIQUE:3 views of the right ankle and 2 views of the right calcaneusperformed.FINDINGS:Fragmentation noted along the medial aspect of the calcaneus just distal tothe medial malleolus. No fracture lucency of the distal tibia or fibula. Nolucency at the articular surface. Calcaneus is intact without abnormaldensity or periosteal reaction. Small anterior joint effusion. Soft tissuesare normal.IMPRESSIONSuspect avulsion type injury of the medial talus.No other fracture or dislocation seen.RL: 6800 [facility] HE[facility]+ VW [id number] 22:17:14Suspect avulsion type injury of the medial [...] medial talus.No other fracture ordislocation seen.RL: 6800 [facility] 2020-02-10 16:40:00 Test Item Value Reference Range Interpretation Comments FOLATE SER (test code = 12.3 ng/mL 3-20 Biot in has been [id number]) reported to cau se a positive bias, interpret resul ts relative to patient's use o f biotin. Lab Interpretation (test Normal code = 20305-6) [facility]. METABOLIC PANEL ([id number])2020-02-10 12:33:00 Test Item Value Reference Range Interpretation Comments NA (test code = 139 mmol/L 135-145 9920933600) K (test code = 3.8 mmol/L 3.5-5 3467206409) CL (test code = 109 mmol/L 98-108 H 8998446263) CO2 TOTAL (test code = 26 mmol/L 23-31 5698175650) AGAP (test code = 2-16 0925851506) BUN (test code = 8 mg/dL 7-23 2687011546) GLUCOSE (test code = 114 mg/dL 70-110 H 9472061179) CREATININE (test code = 0.72 mg/dL 0.5-1.04 8743443725) TOTAL BILI (test code = 0.7 mg/dL 0.1-1.0 8136481941) CALCIUM (test code = 8.3 mg/dL 8.6-10.6 L 4372223773) T PROTEIN (test code = 6.3 g/dL 6.3-8.2 4493291865) ALBUMIN (test code = 3.5 g/dL 3.5-5 3071845962) ALK PHOS (test code = 100 U/L 34-122 7078004153) ALTv (test code = 17 U/L 5-35 1742-6) AST(SGOT) (test code = 28 U/L 13-40 7558157225) eGFR Calculation mL/min/1.73m2 (Non-) (test code = 0575355534) eGFR Calculation mL/min/1.73m2 () (test code = 7850788440) LAWRENCE (test code = LAWRENCE) Association of [...] tests). Lab Interpretation Abnormal (test code = 43086-8) [facility]2020-06-18 12:33:00 Test Item Value Reference Range Interpretation Comments MAGNESIUM (test code = 0738226183) 2.4 mg/dL 1.7-2.4 Lab Interpretation (test code = Normal 28975-9) [facility]2020-06-18 12:33:00 Test Item Value Reference Range Interpretation Comments PHOSPHORUS (test code = 1521103706) 3.4 mg/dL 2.5-5 Lab Interpretation (test code = Normal 46194-8) [facility]EDIMENTATION [id number] 12:15:00 Test Item Value Reference Range Interpretation Comments ESR (test code = See_Comment [Automated message] 8191926410) The system [employer] h generated this result transmitted ref erence range: 0 - 20 m m/HR. The reference r whitney was not used to interpret this result as normal/abnor mal. Lab Interpretation (test Normal code = 84869-8) [facility] WITH [id number] 11:42:00 Test Item Value Reference Range Interpretation Comments WBC (test code = See_Comment [Automated 6390-2) message] The sy stem which generated this result transmitted reference range : 4.30 - 11.10 10*3/?L. The reference range was not used to interpret this result as normal/abnormal . RBC (test code = See_Comment [Automated 389-8) message] The sy stem which generated this [...] RDW-SD (test code = 46.3 fL 39-49.9 20184-2) RDW-CV (test code = 14.0 % 12-15.5 788-0) PLT (test code = See_Comment [Automated 777-3) message] The sy stem which generated this result transmitted reference range : 166 - 358 10*3/ ?L. The reference r whitney was not used to interpret this result as normal/abnormal . MPV (test code = 8.7 fL 9.5-12.9 L 39696-3) NRBC/100 WBC (test See_Comment [Automat ed code = 3197727069) message] The system which generated this result transmitted reference range : 0.0 - 10.0 /100 WBCs. The refer ence range was not u sed to interpret th is result as normal/abnormal . NRBC x10^3 (test code <0.01 See_Comment [Auto mated = 7069948195) message] The s ystem which generated this result transmitted reference range : 10*3/?L. The reference range was not used to interpret this result as normal/abnormal . GRAN MAT (NEUT) % 66.7 % (test code = 770-8) IMM GRAN % (test code 0.40 % = 8476036828) LYMPH % (test code = 22.6 % 736-9) MONO % (test code = 8.5 % 5905-5) EOS % (test code = 1.2 % 713-8) BASO % (test code = 0.6 % 706-2) GRAN MAT x10^3(ANC) 6.84 10*3/uL 1.88-7.09 (test code = 3332865104) IMM GRAN x10^3 (test 0.04 10*3/uL 0-0.06 code = 2963609519) LYMPH x10^3 (test code 2.31 10*3/uL 1.32-3.29 = 731-0) MONO x10^3 (test code 0.87 10*3/uL 0.33-0.92 = 742-7) EOS x10^3 (test code = 0.12 10*3/uL 0.03-0.39 711-2) BASO x10^3 (test code 0.06 10*3/uL 0.01-0.07 = 704-7) Lab Interpretation Abnormal (test code = 10114-2) [facility] VENOUS BLOOD [id number] 11:31:00 Test Item Value Reference Range Interpretation Comments PH (test code = 7.32-7.42 9589000421) PCO2 CARMEN (test code = See_Comment [Auto mated message] 9520657014) The system [employer] generated this result transmitted ref erence range: 41 - 51 mmHg. The reference r whitney was not used to interpret this result as normal/abnor mal. PO2 CARMEN (test code = See_Comment HH [Autom ated message] 0067640736) The system [employer] generated this result transmitted ref erence range: 25 - 40 mmHg. The reference r whitney was not used to interpret this result as normal/abnor mal. HCO3 CARMEN (test code = See_Comment [Auto mated message] 6897753569) The system [employer] generated this result transmitted ref erence range: 24 - 28 mEq/L. The reference r whitney was not used to interpret this result as normal/abnor mal. AC VBE(BEAKER) (test mEq/L code = 4711970976) Lab Interpretation (test Abnormal code = 08410-3) [facility] HospitalURIC [id number] 05:16:00 Test Item Value Reference Range Interpretation Comments URIC ACID (test code = 9144444196) 7.3 mg/dL 2.9-6 H Lab Interpretation (test code = Abnormal 24404-1) [facility]2020-06-18 05:16:00 Test Item Value Reference Range Interpretation Comments MAGNESIUM (test code = 8921515458) 2.4 mg/dL 1.7-2.4 Lab Interpretation (test code = Normal 12720-0) [facility]2020-06-18 05:16:00 Test Item Value Reference Range Interpretation Comments PHOSPHORUS (test code = 6578836163) 3.0 mg/dL 2.5-5 Lab Interpretation (test code = Normal 85294-1) [facility] HospitalN-TERMINAL [id number] 05:15:00 Test Item Value Reference Range Interpretation Comments NT-proBNP (test code 26 pg/mL See_Comment [Autom ated = 1366240556) message] The system which generated this result transmitted reference range : <=125. The reference range was not used to interpret this result as normal/abnormal . LAWRENCE (test code = LAWRENCE) Biotin has been reported to cause a negative bias, interpret results relative to patient's use of biotin. Lab Interpretation Normal (test code = 74380-4) [facility] HospitalGLYCOSYLATED HEMOGLOBIN (A1C)2020-02-10 05:14:00 Test Item Value [...] Indicated Lab Interpretation Normal (test code = 12976-1) [facility] HospitalPROTEIN CREAT RATIO URINE [id number] 05:08:00 Test Item Value Reference Range Interpretation Comments T. PROT U (test code = 2888-6) 24 mg/dL CREAT U (test code = 9868193013) 155.6 mg/dL Protein/Creatinine Ratio Urine 0.0-2.0 (test code = 1521756763) [facility]SOD[facility], URINE [id number] 05:04:00 Test Item Value Reference Range Interpretation Comments NA URINE (test code = 7828012114) 223 mmol/L [facility] HospitalCREATINE [id number] 05:03:00 Test Item Value Reference Range Interpretation Comments CK (test code = 9828973252) 123 U/L 33-194 Lab Interpretation (test code = Normal 70218-5) [facility]IP[facility] PANEL (49393)(TOTAL CHOLESTEROL, TRIGLYCERIDES, HDL)2020-02-10 04:58:00 Test Item Value Reference Range Interpretation Comments CHOL (test code = 133 mg/dL 120-200 0036606098) HDL (test code = 47 mg/dL >50 L 1624239076) HDLC RATIO (test code = See_Comment [Au tomated message] 2807373434) The system [employer] generated this result transmit hiral reference range : <=4.5. The refe rence range was not u sed to interpret th is result as normal/abnormal . TRIG (test code = 37 mg/dL 30-170 8474965059) LDL CHOL (test code = 79 mg/dL See_Comment [Auto mated message] 78254-0) The system [employer] generated this result transmit hiral reference range : <=160. The refe rence range was not u sed to interpret th is result as normal/abnormal . VLDL (test code = 7 mg/dL 5-60 8099513286) Lab Interpretation (test Abnormal code = 26377-4) [facility]AMMONIA, [id number] 00:53:00 Test Item Value Reference Range Interpretation Comments AMMONIA (test code = 5711932157) <9 9-33 L Lab Interpretation (test code = Abnormal 68626-4) 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 [facility] HospitalSALICYLATE2020-06-18 00:17:00 Test Item Value Reference Range Interpretation Comments SALICYLATE (test code <10 mg/L = 8658519003) LAWRENCE (test code = LAWRENCE) Therapeutic Range: ? Analgesic and Antipyretic Use ? 20-100 mg/L ? ? Anti-Inflammatory Use ? 100-250 mg/L Toxic Range: ? Greater than 300 mg/L [facility] HospitalACETAMINOPHEN2020-06-18 00:17:00 Test Item Value Reference Range Interpretation Comments ACETAMINOP (test code = <10.0 10-30 L 7006448047) LAWRENCE (test code = LAWRENCE) Toxic: Greater than 200 ug/mL @ 4 hour post ingestion or greater than 50 ug/mL @ 12 hour post ingestion Lab Interpretation (test Abnormal code = 13245-6) [facility] HospitalCT HEAD WO [id number] 00:04:13 No acute intracranial hemorrhage or mass [...] clear. IMPRESSIONNo acute intracranial hemorrhage or mass effect.[facility] COVID-19 (ID NOW RAPID TESTING)2020-02-09 23:54:00 Test Item Value Reference Range Interpretation Comments SARS-CoV-2 Rapid ID NOW Not Detected Not Detected (test code = 83776-1) LAWRENCE (test code = LAWRENCE) ID NOW COVID-19 Assay is an isothermal nucleic acid amplification test intended for the qualitative detection of nucleic acid from SARS-CoV-2 viral RNA in nasopharyngeal (PROP ATTENDANT) specimens. It is used under Emergency Use [...] indicated. Lab Interpretation Normal (test code = 28737-0) [facility] HospitalTHYROID STIMULATING [id number] 22:58:00 Test Item Value Reference Range Interpretation Comments TSH (test code = See_Comment [Automated message] 6253009272) The system [employer] generated this result transmitted ref erence range: 0.45 - 4 .70 mIU/L. The refe rence range was not u sed to interpret this result as normal/abnor mal. Lab Interpretation (test Normal code = 93177-3) [facility] HospitalCREATINE [id number] 22:39:00 Test Item Value Reference Range Interpretation Comments CK (test code = 6339070971) 121 U/L 33-194 Lab Interpretation (test code = Normal 24786-6) [facility] HospitalCOMP. METABOLIC PANEL (44448)2020-02-09 22:27:00 Test Item Value Reference Range Interpretation Comments NA (test code = 142 mmol/L 135-145 0125942521) K (test code = 3.6 mmol/L 3.5-5 4417627095) CL (test code = 113 mmol/L 98-108 H 1710076772) CO2 TOTAL (test code = 22 mmol/L 23-31 L 5409761051) AGAP (test code = 2-16 5068875870) BUN (test code = 10 mg/dL 7-23 8063807389) GLUCOSE (test code = 107 mg/dL 70-110 6043397203) CREATININE (test code = 1.13 mg/dL 0.5-1.04 H 8624307593) TOTAL BILI (test code = 0.4 mg/dL 0.1-1.9 9560960686) CALCIUM (test code = 8.6 mg/dL 8.6-10.6 0627708376) T PROTEIN (test code = 7.0 g/dL 6.3-8.2 7654240145) ALBUMIN (test code = 4.1 g/dL 3.5-5 6401149050) ALK PHOS (test code = 103 U/L 34-122 6676921376) ALTv (test code = 19 U/L 5-35 1742-6) AST(SGOT) (test code = 26 U/L 13-40 2483137615) eGFR Calculation mL/min/1.73m2 (Non-) (test code = 1204112865) eGFR Calculation mL/min/1.73m2 () (test code = 1856939963) LAWRENCE (test code = LAWRENCE) Association of [...] tests). Lab Interpretation Abnormal (test code = 86650-4) [facility] - DRUG SCREEN [id number] 22:27:00 Test Item Value Reference Range Interpretation Comments BENZO U (test code = Negative Negative 0907566985) MYAH U (test code = Negative Negative 5217905725) AMPHET (test code = Presumptive Positive Negative A 1011703033) THC (test code = Negative Negative 2648570378) METHADONE (test code = Negative Negative 4230543245) Meth U (test code = Presumptive Positive Negative A 9434834287) OPIATES (test code = Negative Negative 2408421049) Cocaine Metabolite (test Negative Negative code = 5699145665) PROPOXY (test code = Negative Negative 9596965184) Tric U (test code = Negative Negative 3265669724) PCP (test code = Negative Negative 9446228942) OXYCOD (test code = Negative Negative 6845861603) LAWRENCE (test code = LAWRENCE) Urine Drug [...] testing). Lab Interpretation (test Abnormal code = 24514-9) [facility] HospitalURINALYSIS2020-06-17 22:22:00 Test Item Value Reference Range Interpretation Comments APPEARANCE (test code = Clear Clear 7267074854) COLOR (test code = Yellow Yellow 8600295712) PH (test code = 4.8-8.0 9342052814) SP GRAVITY (test code = 1.003-1.030 3699247175) GLU U QUAL (test code = Normal Normal 4065810381) BLOOD (test code = Negative Negative 9300698696) KETONES (test code = Negative Negative 4473824445) PROTEIN (test code = 30 mg/dL Negative A 2887-8) UROBILIN (test code = 2.0 mg/dL Normal A 6820043028) BILIRUBIN (test code = Negative Negative 9757435625) NITRITE (test code = Negative Negative 5270119623) LEUK JOVAN (test code = Negative Negative 0883069525) RBC/HPF (test code = <1 See_Comment [Autom ated message] 7677325772) The system [employer] generated this result transmit hiral reference range : 0 - 3 HPF. The refe rence range was not u sed to interpret th is result as normal/abnormal . WBC/HPF (test code = See_Comment [Autom ated message] 5692860153) The system [employer] generated this result transmit hiral reference range : 0 - 5 HPF. The refe rence range was not u sed to interpret th is result as normal/abnormal . BACTERIA (test code = Negative Negative 4265253859) MUCOUS (test code = Slight Negative LPF A 7594547461) SQ EPITH (test code = <1 HPF 6255475223) Lab Interpretation (test Abnormal code = 52913-2) [facility] WITH [id number] 22:12:00 Test Item Value Reference Range Interpretation Comments WBC (test code = See_Comment [Automated 6690-2) message] The sy stem which generated this result transmitted reference range : 4.30 - 11.10 10*3/?L. The reference range was not used to interpret this result as normal/abnormal . RBC (test code = See_Comment [Automated 789-8) message] The sy stem which generated this [...] RDW-SD (test code = 44.6 fL 39-49.9 70430-8) RDW-CV (test code = 13.6 % 12-15.5 788-0) PLT (test code = See_Comment [Automated 777-3) message] The sy stem which generated this result transmitted reference range : 166 - 358 10*3/ ?L. The reference r whitney was not used to interpret this result as normal/abnormal . MPV (test code = 9.0 fL 9.5-12.9 L 83097-0) NRBC/100 WBC (test See_Comment [Automat ed code = 6299602514) message] The system which generated this result transmitted reference range : 0.0 - 10.0 /100 WBCs. The refer ence range was not u sed to interpret th is result as normal/abnormal . NRBC x10^3 (test code <0.01 See_Comment [Auto mated = 0719207277) message] The s ystem which generated this result transmitted reference range : 10*3/?L. The reference range was not used to interpret this result as normal/abnormal . GRAN MAT (NEUT) % 74.6 % (test code = 770-8) IMM GRAN % (test code 0.40 % = 9786603132) LYMPH % (test code = 16.4 % 736-9) MONO % (test code = 7.7 % 5905-5) EOS % (test code = 0.4 % 713-8) BASO % (test code = 0.5 % 706-2) GRAN MAT x10^3(ANC) 7.84 10*3/uL 1.88-7.09 H (test code = 6101237203) IMM GRAN x10^3 (test 0.04 10*3/uL 0-0.06 code = 8421185499) LYMPH x10^3 (test code 1.72 10*3/uL 1.32-3.29 = 731-0) MONO x10^3 (test code 0.81 10*3/uL 0.33-0.92 = 742-7) EOS x10^3 (test code = 0.04 10*3/uL 0.03-0.39 711-2) BASO x10^3 (test code 0.05 10*3/uL 0.01-0.07 = 704-7) Lab Interpretation Abnormal (test code = 91093-2) [facility] HospitalPOCT [id number] 21:59:00 Test Item Value Reference Range Interpretation Comments POCT PREG (test code = 1605) negative Lab Interpretation (test code = Normal 87638-0) [facility]"
--- NOTE | 2022-08-11 11:08 | ER ---
Nurse's Notes [facility] Name: Jewels Webber Age: 32 yrs Sex: Female : 1990 Arrival Date: 08/11/2022 Time: 10:47 Bed 8 Private MD: Diagnosis: UTI/ Urinary tract infection, site not specified Presentation: 08/11 10:57 Chief complaint: Patient states: burning with urination and frequency x 1 week. Denies ss fever. Coronavirus screen: Client denies travel out of the [place] in the last 14 days. Ebola Screen: Patient denies exposure to infectious person. Patient denies travel to an Ebola-affected area in the 21 days before illness onset. Initial Sepsis Screen: Does the patient meet any 2 criteria? No. Patient's initial sepsis screen is negative. Does the patient have a suspected source of infection? No. Patient's initial sepsis screen is negative. Risk Assessment: Do you want to hurt yourself or someone else? Patient reports no desire to harm self or others. Onset of symptoms was August 04, 2022. 10:57 Method Of Arrival: Ambulatory 10:57 Acuity: DANIEL 4 ss Historical: - Allergies: 10:58 No Known Allergies; ss - PMHx: 10:58 drug abuse; Ovarian cyst; Periorbital dermatitis; ss - Immunization history:: Client reports having NOT received the Covid vaccine. - Social history:: Smoking status: Reported history of juuling and/or vaping. Vital Signs: 10:57 BP 116 / 68; Pulse 86; Resp 16; Temp 97.7(O); Pulse Ox 99% on R/A; Weight 74.84 kg; ss Height 6 ft. 0 in. (182.88 cm); Pain 0/10; 10:57 Body Mass Index 22.38 (74.84 kg, 182.88 cm) ED Course: 10:47 Patient arrived in ED. rg4 10:48 Donald Ha PA is PHCP. cinthya 10:48 Flako Patino MD is Attending Physician. cinthya 10:50 Alie Mckeon, RN is Primary Nurse. 10:58 Triage completed. 10:58 Arm band placed on left wrist. ss Administered Medications: No medications were administered Outcome: 11:07 Discharge ordered by MD. mendes 11:20 Patient left the ED. eb Signatures: Donald Ha PA PA jmm Smirch, Shelby, CARLA RN Alie Mckeon RN RN Srinivas, Melissa 4 Alice Gould Corrections: (The following items were deleted from the chart) 10:59 10:57 Acuity: DANIEL 3 ss
--- NOTE | 2022-08-11 11:08 | EDPHYS ---
Physician Documentation [facility] Name: Jewels Webber Age: 32 yrs Sex: Female : 1990 Arrival Date: 08/11/2022 Time: 10:47 Bed 8 Private MD: ED Physician Flako Patino HPI: 08/11 11:03 This 32 yrs old Female presents to ER via Ambulatory with complaints of Urinary Problem.[facility] 11:03 The patient presents with urinary symptoms. Onset: The symptoms/episode began/occurred jmm gradually. Modifying factors: The symptoms are alleviated by nothing, the symptoms are aggravated by nothing. Associated signs and symptoms: Pertinent positives: dysuria, Pertinent negatives: fever. Historical: - Allergies: 10:58 No Known Allergies; ss - PMHx: 10:58 drug abuse; Ovarian cyst; Periorbital dermatitis; ss - Immunization history:: Client reports having NOT received the Covid vaccine. - Social history:: Smoking status: Reported history of juuling and/or vaping. ROS: 11:03 Constitutional: Negative for fever, chills, and weight loss, Eyes: Negative for injury, jmm pain, redness, and discharge, ENT: Negative for injury, pain, and discharge, Neck: Negative for injury, pain, and swelling, Cardiovascular: Negative for chest pain, palpitations, and edema, Respiratory: Negative for shortness of breath, cough, wheezing, and pleuritic chest pain, Abdomen/GI: Negative for abdominal pain, nausea, vomiting, diarrhea, and constipation, Back: Negative for injury and pain, MS/Extremity: Negative for injury and deformity, Skin: Negative for injury, rash, and discoloration, Neuro: Negative for headache, weakness, numbness, tingling, and seizure, Psych: Negative for depression, anxiety, suicide ideation, homicidal ideation, and hallucinations. 11:03 : Positive for urinary symptoms. 11:03 All other systems are negative. Exam: 11:03 Constitutional: This is a well developed, well nourished patient who is awake, alert, jmm and in no acute distress. Head/Face: atraumatic. Eyes: EOMI, no conjunctival erythema appreciated ENT: Moist Mucus Membranes Neck: Trachea midline, Supple Chest/axilla: Normal chest wall appearance and motion. Cardiovascular: Regular rate and rhythm. No edema appreciated Respiratory: Normal respirations, no respiratory distress appreciated Abdomen/GI: Non distended Back: Normal ROM Skin: General appearance color normal MS/ Extremity: Moves all extremities, no obvious deformities appreciated, no edema noted to the lower extremities Neuro: Awake and alert Psych: Behavior is normal, Mood is normal, Patient is cooperative and pleasant Vital Signs: 10:57 BP 116 / 68; Pulse 86; Resp 16; Temp 97.7(O); Pulse Ox 99% on R/A; Weight 74.84 kg; ss Height 6 ft. 0 in. (182.88 cm); Pain 0/10; 10:57 Body Mass Index 22.38 (74.84 kg, 182.88 cm) ss MDM: 11:04 Patient medically screened. [facility] 11:04 Data reviewed: vital signs, nurses notes. [facility] 11:07 Counseling: I had a detailed discussion with the patient and/or guardian regarding: the [facility] historical points, exam findings, and any diagnostic results supporting the discharge/admit diagnosis, lab results, the need for outpatient follow up, to return to the emergency department if symptoms worsen or persist or if there are any questions or concerns that arise at home. 08/11 11:03 Order name: Urine Dipstick-Ancillary; Complete Time: 11:04 EDKS 08/11 11:13 Order name: Urine --Ancillary (enter results) eb 08/11 11:03 Order name: Urine Dipstick-Ancillary (obtain specimen) [facility] Administered Medications: No medications were administered Disposition Summary: 08/11/22 11:07 Discharge Ordered Location: Home [facility] Condition: Stable [facility] Diagnosis - UTI/ Urinary tract infection, site not specified [facility] Followup: [facility] - With: Private Physician - When: 2 - 3 days - Reason: Recheck today's complaints, Continuance of care, Re-evaluation by your physician Discharge Instructions: - Discharge Summary Sheet [facility] - Urinary Tract Infection, Adult [facility] Forms: - Medication Reconciliation Form [facility] - Thank You Letter [facility] - Antibiotic Education [facility] - Prescription Opioid Use [facility] Prescriptions: - cefpodoxime 200 mg Oral Tablet - take 1 tablet by ORAL route every 12 hours for 10 days with food; 20 tablet; [facility] Refills: 0, Product Selection Permitted Signatures: Dispatcher [employer] EDKS Mickail, Donald, PA PA jmm Smirch, Mari, RN RN ss
[2022-08-11 11:34] VITALS: BP 116/68; TEMP 97.7; O2SAT 99
[2022-08-11 13:02] LABS: Urine Specific Gravity/Preg 1.025 (1.005-1.030)
== END 2022-08-11 11:20 | disposition home or self-care (01) ==
LOC: ER 10:45
DX: N39.0 Urinary tract infection, site not specified (principal)
CPT/HCPCS: 81003; 81025; 99281

== ENCOUNTER 2022-09-25 11:37 | Emergency (ER) | payer SELFPAY ==
--- OUTSIDE RECORDS SUMMARY | 2022-09-25 11:41 | XMS REPORT | Continuity of Care Document ---
:1990 Author Organization [facility] t Address [address] [place] [address] Care Team Providers Name Role Phone PCP, [...] amine 6-17 ity of abuse abuse 00:00: [address] Branch Toxic Toxic Disease Active 2020-0 [...] Active Univers ALLERGIE Class ity of S [facility] Social History Social Habit Start Date Stop Date Quantity Comments Source Sex Assigned At [facility] y of [facility] Exposure to Not sure [facility] SARS-CoV-2 [facility] (event) [place] Tobacco use and 2020-02-10 2020-02-10 Never used [facility] y of exposure 00:00:00 00:00:00 [facility] Alcohol intake 2020-02-10 2020-02-10 Current drinker Unive rsity of 00:00:00 00:00:00 of alcohol [facility] (finding) [place] Smoking Status Start Date Stop Date Source Current some day smoker 2020-02-10 00:00:00 [facility] ersity of [facility] Unknown if ever smoked [facility] Medications Ordered Filled Start Stop Current Ordering Indication Dosage Frequency Signature Comments Components Source Medication Medication Date Date Medication? Clinician (SIG) Name Name thiamine Yes 100mg 100 mg, Unive rs (VITAMIN 6-18 Oral, ity of B1) tablet 14:00: DAILY, [place] 100 mg 00 First dose Medical on [facility] 02/10/20 at 0900, Until Discontinu ed, Routine multivitami 2020-0 Yes 1{tbl} 1 tablet, Univers n tablet 1 6-18 Oral, ity of tablet 14:00: DAILY, [place] 00 First dose Medical on [facility] 02/10/20 at 0900, Until Discontinu ed, Routine D5W-LR IV 2020-0 Yes 1000mL at 100 Univ ers infusion 6-18 mL/hr, IV ity of 1,000 mL 05:15: [facility] CONTINUOUS Medical , Starting Branch [facility] 02/10/20 at 0015, Until Discontinu ed, [...] Restraint: Yes No known No Univers medications [facility] No known No Univers medications [facility] Vital Signs Vital Name Observation Time Observation Value Comments Source Respiratory rate 2020-02-10 12:17:00 18 /min [facility] Oxygen saturation in 2020-02-10 12:17:00 100 /min [facility] Arterial blood by [facility] Pulse oximetry Branch Systolic blood 2020-02-10 12:17:00 115 mm[Hg] [facility] [place] pressure [facility] Diastolic blood 2020-02-10 12:17:00 69 mm[Hg] [facility] Heart rate 2020-02-10 12:17:00 69 /min [facility] Body temperature 2020-02-10 12:17:00 37.11 Fay [facility] Body weight 2020-02-09 21:49:00 72.576 kg [facility] [place] [facility] BMI 2020-02-09 21:49:00 22.96 kg/m2 [facility] [place] [facility] Respiratory rate 2020-02-10 12:17:00 18 /min Univ ersity [facility] [place] [facility] Oxygen saturation in 2020-02-10 12:17:00 100 /min University of Arterial blood by [facility] destiny Pulse oximetry Branch Systolic blood 2020-02-10 12:17:00 115 mm[Hg] Univer sity of pressure [place] [facility] Diastolic blood 2020-02-10 12:17:00 69 mm[Hg] Unive rsity of pressure [place] [facility] Heart rate 2020-02-10 12:17:00 69 /min [facility] [place] [facility] Body temperature 2020-02-10 12:17:00 37.11 Fay Univ [facility] [place] [facility] Body weight 2020-02-09 21:49:00 72.576 kg [facility] [place] [facility] BMI 2020-02-09 21:49:00 22.96 kg/m2 [facility] [place] [facility] Heart rate 2020-01-13 11:30:00 121 /min [facility] [place] [facility] Respiratory rate 2020-01-13 11:30:00 28 /min Univ [facility] [place] [facility] Body height 2020-01-13 10:57:00 177.8 cm [facility] [place] [facility] Body weight 2020-01-13 10:57:00 68.04 kg [facility] [place] [facility] BMI 2020-01-13 10:57:00 21.52 kg/m2 [facility] [place] [facility] Oxygen saturation in 2020-01-13 10:57:00 97 /min University of Arterial blood by [facility] Pulse oximetry Branch Systolic blood 2020-01-13 10:57:00 142 mm[Hg] Univer sity of pressure [place] [facility] Diastolic blood 2020-01-13 10:57:00 97 mm[Hg] Unive rsity of pressure [place] [facility] Body temperature 2020-01-13 10:57:00 37.67 Fay Univ [facility] [place] [facility] Heart rate 2020-01-13 11:30:00 121 /min [facility] [place] [facility] Respiratory rate 2020-01-13 11:30:00 28 /min Univ [facility] [place] [facility] Body height 2020-01-13 10:57:00 177.8 cm [facility] Body weight 2020-01-13 10:57:00 68.04 kg Universi ty [facility] BMI 2020-01-13 10:57:00 21.52 kg/m2 [facility] Oxygen saturation in 2020-01-13 10:57:00 97 /min University of Arterial blood by [facility] Pulse oximetry Branch Systolic blood 2020-01-13 10:57:00 142 mm[Hg] Univer sity of pressure [facility] Diastolic blood 2020-01-13 10:57:00 97 mm[Hg] Unive rsity of [facility] Body temperature 2020-01-13 10:57:00 37.67 Fay [facility] 2020-10-22 16:27:53 No respiratory distress /min 02 Sat by Pulse 2020-10-22 16:27:53 100 /min Oximetry Body Mass Index 2020-10-22 16:27:53 23.4 Height 2020-10-22 16:27:53 185\\S\\72.83 Pulse Rate 2020-10-22 16:27:53 75 /min Respiratory Rate 2020-10-22 16:27:53 18 /min Temperature 2020-10-22 16:27:53 36.7\\S\\98.1 Weight 2020-10-22 16:27:53 36130\\S\\2821.917 Respiratory 2020-10-22 16:11:05 No respiratory distress /min 02 Sat by Pulse 2020-10-22 16:11:05 100 /min Oximetry Body Mass Index 2020-10-22 16:11:05 23.4 Height 2020-10-22 16:11:05 185\\S\\72.83 Pulse Rate 2020-10-22 16:11:05 75 /min Respiratory Rate 2020-10-22 16:11:05 18 /min Temperature 2020-10-22 16:11:05 36.7\\S\\98.1 Weight 2020-10-22 16:11:05 21055\\S\\2821.917 Respiratory 2020-10-22 16:10:35 No respiratory distress /min 02 Sat by Pulse 2020-10-22 16:10:35 100 /min Oximetry Body Mass Index 2020-10-22 16:10:35 23.4 Height 2020-10-22 16:10:35 185\\S\\72.83 Pulse Rate 2020-10-22 16:10:35 75 /min Respiratory Rate 2020-10-22 16:10:35 18 /min Temperature 2020-10-22 16:10:35 36.7\\S\\98.1 Weight 2020-10-22 16:10:35 53060\\S\\2821.917 Respiratory 2020-10-22 16:10:04 No respiratory distress /min 02 Sat by Pulse 2020-10-22 16:10:04 100 /min Oximetry Body Mass Index 2020-10-22 16:10:04 23.4 Height 2020-10-22 16:10:04 185\\S\\72.83 Pulse Rate 2020-10-22 16:10:04 75 /min Respiratory Rate 2020-10-22 16:10:04 18 /min Temperature 2020-10-22 16:10:04 36.7\\S\\98.1 Weight 2020-10-22 16:10:04 38559\\S\\2821.917 Respiratory 2020-10-22 16:09:34 No respiratory distress /min 02 Sat by Pulse 2020-10-22 16:09:34 100 /min Oximetry Body Mass Index 2020-10-22 16:09:34 23.4 Height 2020-10-22 16:09:34 185\\S\\72.83 Pulse Rate 2020-10-22 16:09:34 75 /min Respiratory Rate 2020-10-22 16:09:34 18 /min Temperature 2020-10-22 16:09:34 36.7\\S\\98.1 Weight 2020-10-22 16:09:34 27439\\S\\2821.917 Respiratory 2020-10-22 14:36:24 No respiratory distress /min 02 Sat by Pulse 2020-10-22 14:36:24 99 /min Oximetry Body Mass Index 2020-10-22 14:36:24 23.4 Height 2020-10-22 14:36:24 185\\S\\72.83 Pulse Rate 2020-10-22 14:36:24 84 /min Respiratory Rate 2020-10-22 14:36:24 18 /min Temperature 2020-10-22 14:36:24 36.7\\S\\98.1 Weight 2020-10-22 14:36:24 24055\\S\\2821.917 02 Sat by Pulse 2020-10-22 14:11:58 99 /min Oximetry Body Mass Index 2020-10-22 14:11:58 23.4 Height 2020-10-22 14:11:58 185\\S\\72.83 Pulse Rate 2020-10-22 14:11:58 84 /min Respiratory Rate 2020-10-22 14:11:58 18 /min Temperature 2020-10-22 14:11:58 36.7\\S\\98.1 Weight 2020-10-22 14:11:58 04648\\S\\2821.917 Respiratory 2020-10-22 14:11:58 No respiratory distress /min Respiratory 2020-10-22 14:06:23 No respiratory distress /min 02 Sat by Pulse 2020-10-22 14:06:23 99 /min Oximetry Body Mass Index 2020-10-22 14:06:23 23.4 Height 2020-10-22 14:06:23 185\\S\\72.83 Pulse Rate 2020-10-22 14:06:23 81 /min Respiratory Rate 2020-10-22 14:06:23 18 /min Temperature 2020-10-22 14:06:23 36.7\\S\\98.1 Weight 2020-10-22 14:06:23 02231\\S\\2821.917 Respiratory 2020-10-22 01:23:43 No respiratory distress /min Body Mass Index 2020-10-22 01:23:43 23.4 Height 2020-10-22 01:23:43 185\\S\\72.83 Weight 2020-10-22 01:23:43 23639\\S\\2821.917 Respiratory 2020-10-22 00:30:33 No respiratory distress /min Body Mass Index 2020-10-22 00:30:33 23.4 Height 2020-10-22 00:30:33 185\\S\\72.83 Weight 2020-10-22 00:30:33 95919\\S\\2821.917 Respiratory 2020-10-22 00:30:03 No respiratory distress /min Body Mass Index 2020-10-22 00:30:03 23.4 Height 2020-10-22 00:30:03 185\\S\\72.83 Weight 2020-10-22 00:30:03 31186\\S\\2821.917 Respiratory 2020-10-21 23:07:02 No respiratory distress /min Body Mass Index 2020-10-21 23:07:02 23.4 Height 2020-10-21 23:07:02 185\\S\\72.83 Weight 2020-10-21 23:07:02 03507\\S\\2821.917 Respiratory 2020-10-21 23:06:01 No respiratory distress /min Respiratory 2020-10-21 23:04:59 No respiratory distress /min WEIGHT 2020-10-21 23:04:00 80 kg HEIGHT 2020-10-21 23:04:00 185 cm Procedures Procedure Date / Time Performing Clinician Source Performed XR ANKLE 3+ VW RIGHT 2020-06-26 19:40:55 Ortiz [facility] XR HEEL 2+ VW RIGHT 2020-06-26 19:40:55 Katelyn Zhou [facility] PHOSPHORUS 2020-02-10 11:26:00 Gaby raheem [facility] MAGNESIUM 2020-02-10 11:26:00 Gaby raheem [facility] FOLATE 2020-02-10 11:26:00 Gaby [facility] COMP. METABOLIC PANEL 2020-02-10 11:26:00 aGby [facility] ([id number]) [facility] SEDIMENTATION RATE 2020-02-10 11:26:00 Estephania Griffin [facility] CBC WITH DIFFERENTIAL 2020-02-10 11:26:00 Gaby [facility] ACUTE CARE VENOUS BLOOD 2020-02-10 11:25:00 Estephania Griffin [facility] GAS [facility] AMMONIA, PLASMA 2020-02-10 00:06:00 Marlon Maurer [facility] CT HEAD WO CONTRAST 2020-02-09 23:58:22 Marlon Maurer [facility] COVID-19 (ID NOW RAPID 2020-02-09 22:53:00 Marlon Maurer [facility] TESTING) Medical Branch CREATINE KINASE 2020-02-09 22:17:00 Estephania Griffin [facility] SALICYLATE 2020-02-09 22:17:00 Marlon Maurer [facility] ETHANOL 2020-02-09 22:17:00 Marlon Maurer [facility] POCT TEST 2020-02-09 21:59:00 Marlon Maurer [facility] ADC / LCC - DRUG SCREEN 2020-02-09 21:58:00 Marlon Maurer [facility] TRIAGE [facility] PROTEIN CREAT RATIO 2020-02-09 21:57:00 Estephania Griffin [facility] URINE RANDOM Medical Branch PHOSPHORUS 2020-02-09 21:57:00 Gaby raheem [facility] CREATINE KINASE 2020-02-09 21:57:00 Marlon Maurer [facility] URIC ACID 2020-02-09 21:57:00 Gaby raheem [facility] MAGNESIUM 2020-02-09 21:57:00 Gaby [facility] THYROID STIMULATING 2020-02-09 21:57:00 Marlon Maurer [facility] HORMONE [facility] Branch COMP. METABOLIC PANEL 2020-02-09 21:57:00 Marlon Maurer [facility] ([id number]) Medical Branch LIPID PANEL 2020-02-09 21:57:00 Gaby raheem [facility] ([id number])(TOTAL Medical Branch CHOLESTEROL, TRIGLYCERIDES, HDL) CBC WITH DIFFERENTIAL 2020-02-09 21:57:00 Marlon Maurer [facility] GLYCOSYLATED HEMOGLOBIN 2020-02-09 21:57:00 Estephania Griffin [facility] (A1C) Medical Branch URINALYSIS 2020-02-09 21:57:00 Marlon Maurer [facility] N-TERMINAL PRO-BNP 2020-02-09 21:57:00 Estephania Griffinit y [facility] SODIUM, URINE RANDOM 2020-02-09 21:57:[address] [facility] EKG-12 LEAD 2020-02-09 21:50:41 Marlon Maurer [facility] Encounters Start End Encounter Admission Attending Care Care Encounter Source Date/Time Date/Time Type Type Clinicians Facility Department ID 2020-10-21 Inpatient [facility] [id number] [facility] 22:43:00 08 2020-10-21 2020-10-21 Emergency [facility] [id number] [facility] 22:43:00 22:43:00 08 2020-06-26 2020-06-26 Hospital Radiology [facility] [id number] Univers 12:56:30 23:59:00 Encounter [place] [id number] ity of [place] 4.2.7.2.686 [facility] [id number] [facility] [address] [place] 2020-06-26 2020-06-26 Hospital Radiology [facility] [id number] 12:56:30 23:59:00 Encounter Griffin [id number] [place] [address] [place] [address] [id number] 2020-06-26 2020-06-26 Outpatient R RADIOLOGY [facility] [id number] Univers 00:00:00 [facility]00[facility]-02[facility]09 2020-02-10 Outpatient X GABY MTMARIBEL [facility] [id number] Univers 16:46:58 12:38:00 ESTEPHANIA [facility] 2020-02-09 2020-02-10 Emergency Marlon Maurer [facility] 1.2.840 .114 [id number] Univers 16:46:58 12:38:00 [place] 350.1.13.10 ity of Estephania Griffin 4.2.7.2.686 [facility] [id number] [facility] [address] [place] 2020-02-09 2020-02-10 [facility] 1.2.840 .114 [id number] 16:46:58 12:38:00 [place] 350.1.13.10 [place]stephania [place] 4.2.7.2.686 [place] [id number] [facility] 2020-01-13 2020-01-13 [facility] [id number] Univers 06:02:03 06:59:00 [facility] [address] [place] [address] [id number] [place] [address] Branch 2020-01-13 2020-01-13 [facility] [id number] 06:02:03 06:59:00 Marlon Li 350.1.13.10 [place] 4.2.7.2.686 [place] [id number] [facility] 2020-01-13 2020-01-13 Emergency X [facility] ERT [id number] Univers 06:02:03 06:02:03 [facility] Results Test Description Test Time [...] SARS-CoV-2 PCR Result:) Complete Blood Count Auto [id number] 00:08:00 Test Item Value Reference Range Interpretation [...] code = NRBCP) 0 % Comprehensive Metabolic [id number] 00:08:00 Test Item Value Reference Range Interpretation [...] 146 U/L 46-116 H = ALP) Ethanol [id number] 00:08:00 Test Item Value Reference Range Interpretation Comments Ethanol (test code = ETOH) < 3 mg/dL XR ANKLE 3+ VW [id number] 22:17:14Suspect avulsion type injury of the medial [...] talus.No other fracture or dislocation seen.RL: [facility]00 [facility] HEEL 2+ VW [id number] 22:17:14Suspect avulsion type injury of the medial [...] medial talus.No other fracture ordislocation seen.RL: 6800 [facility] 2020-02-10 16:40:00 Test Item Value Reference Range Interpretation Comments FOLATE SER (test code = 12.3 ng/mL 3-20 Biot in has been [id number]) reported to cau se a positive bias, interpret resul ts relative to patient's use o f biotin. Lab Interpretation (test Normal code = 50186-8) [facility]. METABOLIC PANEL (18821)2020-02-10 12:33:00 Test Item Value Reference Range Interpretation Comments NA (test code = 139 mmol/L 135-145 4873193206) K (test code = 3.8 mmol/L 3.5-5 8110112683) CL (test code = 109 mmol/L 98-108 H 6722473810) CO2 TOTAL (test code = 26 mmol/L 23-31 8172543139) AGAP (test code = 2-16 1460809589) BUN (test code = 8 mg/dL 7-23 0430880553) GLUCOSE (test code = 114 mg/dL 70-110 H 1866604648) CREATININE (test code = 0.72 mg/dL 0.5-1.04 3241603150) TOTAL BILI (test code = 0.7 mg/dL 0.1-1.1 6945438689) CALCIUM (test code = 8.3 mg/dL 8.6-10.6 L 4576086398) T PROTEIN (test code = 6.3 g/dL 6.3-8.2 9931429931) ALBUMIN (test code = 3.5 g/dL 3.5-5 9814515416) ALK PHOS (test code = 100 U/L 34-122 2112026889) ALTv (test code = 17 U/L 5-35 1742-6) AST(SGOT) (test code = 28 U/L 13-40 4592815186) eGFR Calculation mL/min/1.73m2 (Non-) (test code = 9108677132) eGFR Calculation mL/min/1.73m2 () (test code = 5835721244) LAWRENCE (test code = LAWRENCE) Association of [...] tests). Lab Interpretation Abnormal (test code = 64791-0) [facility]-06-18 12:33:00 Test Item Value Reference Range Interpretation Comments MAGNESIUM (test code = 6477976970) 2.4 mg/dL 1.7-2.4 Lab Interpretation (test code = Normal 94432-2) [facility]2020-06-18 12:33:00 Test Item Value Reference Range Interpretation Comments PHOSPHORUS (test code = 4724186213) 3.4 mg/dL 2.5-5 Lab Interpretation (test code = Normal 72577-2) [facility] [id number] 12:15:00 Test Item Value Reference Range Interpretation Comments ESR (test code = See_Comment [Automated message] 4601502489) The system [employer] h generated this result transmitted ref erence range: 0 - 20 m m/HR. The reference r whitney was not used to interpret this result as normal/abnor mal. Lab Interpretation (test Normal code = 48942-1) [facility] WITH [id number] 11:42:00 Test Item Value Reference Range Interpretation Comments WBC (test code = See_Comment [Automated 9690-2) message] The sy stem which generated this result transmitted reference range : 4.30 - 11.10 10*3/?L. The reference range was not used to interpret this result as normal/abnormal . RBC (test code = See_Comment [Automated 739-8) message] The sy stem which generated this [...] RDW-SD (test code = 46.3 fL 39-49.9 07514-5) RDW-CV (test code = 14.0 % 12-15.5 788-0) PLT (test code = See_Comment [Automated 777-3) message] The sy stem which generated this result transmitted reference range : 166 - 358 10*3/ ?L. The reference r whitney was not used to interpret this result as normal/abnormal . MPV (test code = 8.7 fL 9.5-12.9 L 40068-3) NRBC/100 WBC (test See_Comment [Automat ed code = 8094255081) message] The system which generated this result transmitted reference range : 0.0 - 10.0 /100 WBCs. The refer ence range was not u sed to interpret th is result as normal/abnormal . NRBC x10^3 (test code <0.01 See_Comment [Auto mated = 8194524072) message] The s ystem which generated this result transmitted reference range : 10*3/?L. The reference range was not used to interpret this result as normal/abnormal . GRAN MAT (NEUT) % 66.7 % (test code = 770-8) IMM GRAN % (test code 0.40 % = 0468674910) LYMPH % (test code = 22.6 % 736-9) MONO % (test code = 8.5 % 5905-5) EOS % (test code = 1.2 % 713-8) BASO % (test code = 0.6 % 706-2) GRAN MAT x10^3(ANC) 6.84 10*3/uL 1.88-7.09 (test code = 0145103025) IMM GRAN x10^3 (test 0.04 10*3/uL 0-0.06 code = 2023021873) LYMPH x10^3 (test code 2.31 10*3/uL 1.32-3.29 = 731-0) MONO x10^3 (test code 0.87 10*3/uL 0.33-0.92 = 742-7) EOS x10^3 (test code = 0.12 10*3/uL 0.03-0.39 711-2) BASO x10^3 (test code 0.06 10*3/uL 0.01-0.07 = 704-7) Lab Interpretation Abnormal (test code = 76792-3) [facility] VENOUS BLOOD [id number] 11:31:00 Test Item Value Reference Range Interpretation Comments PH (test code = 7.32-7.42 6351981824) PCO2 CRAMEN (test code = See_Comment [Auto mated message] 1741020202) The system [employer] generated this result transmitted ref erence range: 41 - 51 mmHg. The reference r whitney was not used to interpret this result as normal/abnor mal. PO2 CARMEN (test code = See_Comment HH [Autom ated message] 9450534149) The system [employer] generated this result transmitted ref erence range: 25 - 40 mmHg. The reference r whitney was not used to interpret this result as normal/abnor mal. HCO3 CARMEN (test code = See_Comment [Auto mated message] 7724839758) The system [employer] generated this result transmitted ref erence range: 24 - 28 mEq/L. The reference r whitney was not used to interpret this result as normal/abnor mal. AC VBE(BEAKER) (test mEq/L code = 9807849783) Lab Interpretation (test Abnormal code = 51249-2) [facility] [id number] 05:16:00 Test Item Value Reference Range Interpretation Comments URIC ACID (test code = 3412063340) 7.3 mg/dL 2.9-6 H Lab Interpretation (test code = Abnormal 94652-0) [facility]2020-06-18 05:16:00 Test Item Value Reference Range Interpretation Comments MAGNESIUM (test code = 1112101671) 2.4 mg/dL 1.7-2.4 Lab Interpretation (test code = Normal 23868-6) [facility]2020-06-18 05:16:00 Test Item Value Reference Range Interpretation Comments PHOSPHORUS (test code = 3653570776) 3.0 mg/dL 2.5-5 Lab Interpretation (test code = Normal 48009-0) [facility]ennialN-TERMINAL [id number] 05:15:00 Test Item Value Reference Range Interpretation Comments NT-proBNP (test code 26 pg/mL See_Comment [Autom ated = 7212775400) message] The system which generated this result transmitted reference range : <=125. The reference range was not used to interpret this result as normal/abnormal . LAWRENCE (test code = LAWRENCE) Biotin has been reported to cause a negative bias, interpret results relative to patient's use of biotin. Lab Interpretation Normal (test code = 61149-7) [facility]ennialGLYCOSYLATED HEMOGLOBIN (A1C)2020-02-10 05:14:00 Test Item Value Reference [...] Indicated Lab Interpretation Normal (test code = 19166-0) [facility]ennial[facility]OTEIN CREAT RATIO URINE [id number] 05:08:00 Test Item Value Reference Range Interpretation Comments T. PROT U (test code = 2888-6) 24 mg/dL CREAT U (test code = 0817007997) 155.6 mg/dL Protein/Creatinine Ratio Urine 0.0-2.0 (test code = 7584936912) [facility]ennial[facility], URINE [id number] 05:04:00 Test Item Value Reference Range Interpretation Comments NA URINE (test code = 3233703833) 223 mmol/L [facility]ennialCREATINE [id number] 05:03:00 Test Item Value Reference Range Interpretation Comments CK (test code = 3573038183) 123 U/L 33-194 Lab Interpretation (test code = Normal 40480-2) [facility] CentennialLIPID PANEL (89074)(TOTAL CHOLESTEROL, TRIGLYCERIDES, HDL)2020-02-10 04:58:00 Test Item Value Reference Range Interpretation Comments CHOL (test code = 133 mg/dL 120-200 4091725665) HDL (test code = 47 mg/dL >50 L 5134218235) HDLC RATIO (test code = See_Comment [Au tomated message] 2520370733) The system [employer] generated this result transmit hiral reference range : <=4.5. The refe rence range was not u sed to interpret th is result as normal/abnormal . TRIG (test code = 37 mg/dL 30-170 8754437920) LDL CHOL (test code = 79 mg/dL See_Comment [Auto mated message] 33190-4) The system [employer] generated this result transmit hiral reference range : <=160. The refe rence range was not u sed to interpret th is result as normal/abnormal . VLDL (test code = 7 mg/dL 5-60 1629735604) Lab Interpretation (test Abnormal code = 30452-3) [facility]ennialAMMONIA, [id number] 00:53:00 Test Item Value Reference Range Interpretation Comments AMMONIA (test code = 8658445533) <9 9-33 L Lab Interpretation (test code = Abnormal 62767-7) [facility]ennialETHANOL2020-06-18 00:17:00 Test Item Value Reference Range Interpretation Comments ALCOHOL (test code = <10 mg/dL 4433166231) LAWRENCE (test code = LAWRENCE) <10 [id number] Toxic>100 Depression of WEB KNITTER>400 [facility] 00:17:00 Test Item Value Reference Range Interpretation Comments SALICYLATE (test code <10 mg/L = 3969679481) LAWRENCE (test code = LAWRENCE) Therapeutic Range: ? Analgesic and Antipyretic Use ? 20-100 mg/L ? ? Anti-Inflammatory Use ? 100-250 mg/L Toxic Range: ? Greater than 300 mg/L [facility]2020-06-18 00:17:00 Test Item Value Reference Range Interpretation Comments ACETAMINOP (test code = <10.0 10-30 L 6979288621) LAWRENCE (test code = LAWRENCE) Toxic: Greater than 200 ug/mL @ 4 hour post ingestion or greater than 50 ug/mL @ 12 hour post ingestion Lab Interpretation (test Abnormal code = 75992-8) [facility] HEAD WO [id number] 00:04:13 No acute intracranial hemorrhage or mass [...] clear. IMPRESSIONNo acute intracranial hemorrhage or mass effect.[facility] COVID-19 (ID NOW RAPID TESTING)2020-02-09 23:54:00 Test Item Value Reference Range Interpretation Comments SARS-CoV-2 Rapid ID NOW Not Detected Not Detected (test code = 88380-7) LAWRENCE (test code = LAWRENCE) ID NOW COVID-19 Assay is an isothermal nucleic acid amplification test intended for the qualitative detection of nucleic acid from SARS-CoV-2 viral RNA in nasopharyngeal (DEPARTMENT STORE GENERAL MANAGER) specimens. It is used under Emergency Use [...] indicated. Lab Interpretation Normal (test code = 93011-6) [facility] STIMULATING [id number] 22:58:00 Test Item Value Reference Range Interpretation Comments TSH (test code = See_Comment [Automated message] [id number]) The system [employer] generated this result transmitted ref erence range: 0.45 - 4 .70 mIU/L. The refe rence range was not u sed to interpret this result as normal/abnor mal. Lab Interpretation (test Normal code = 32175-7) [facility] [id number] 22:39:00 Test Item Value Reference Range Interpretation Comments CK (test code = 2417377915) 121 U/L 33-194 Lab Interpretation (test code = Normal 80966-8) [facility] METABOLIC PANEL (67140)2020-02-09 22:27:00 Test Item Value Reference Range Interpretation Comments NA (test code = 142 mmol/L 135-145 1426483168) K (test code = 3.6 mmol/L 3.5-5 9773568399) CL (test code = 113 mmol/L 98-108 H 3395964746) CO2 TOTAL (test code = 22 mmol/L 23-31 L 9313622747) AGAP (test code = 2-16 9266064360) BUN (test code = 10 mg/dL 7-23 5688205104) GLUCOSE (test code = 107 mg/dL 70-110 2707883188) CREATININE (test code = 1.13 mg/dL 0.5-1.04 H 8918895388) TOTAL BILI (test code = 0.4 mg/dL 0.1-1.2 7652464280) CALCIUM (test code = 8.6 mg/dL 8.6-10.6 6124373631) T PROTEIN (test code = 7.0 g/dL 6.3-8.2 9992962089) ALBUMIN (test code = 4.1 g/dL 3.5-5 4105740381) ALK PHOS (test code = 103 U/L 34-122 7057825695) ALTv (test code = 19 U/L 5-35 1742-6) AST(SGOT) (test code = 26 U/L 13-40 7166148785) eGFR Calculation mL/min/1.73m2 (Non-) (test code = 7052583207) eGFR Calculation mL/min/1.73m2 () (test code = 5572235867) LAWRENCE (test code = LAWRENCE) Association of [...] tests). Lab Interpretation Abnormal (test code = 57554-4) [facility] - DRUG SCREEN [id number] 22:27:00 Test Item Value Reference Range Interpretation Comments BENZO U (test code = Negative Negative 1032905574) MYAH U (test code = Negative Negative 1272330533) AMPHET (test code = Presumptive Positive Negative A 3365261757) THC (test code = Negative Negative 2690494372) METHADONE (test code = Negative Negative 5598241472) Meth U (test code = Presumptive Positive Negative A 1892525547) OPIATES (test code = Negative Negative 4781647653) Cocaine Metabolite (test Negative Negative code = 1547691038) PROPOXY (test code = Negative Negative 3174656410) Tric U (test code = Negative Negative 2510794541) PCP (test code = Negative Negative 4349151147) OXYCOD (test code = Negative Negative 8477608704) LAWRENCE (test code = LAWRENCE) Urine Drug [...] testing). Lab Interpretation (test Abnormal code = 08026-5) [facility]2020-06-17 22:22:00 Test Item Value Reference Range Interpretation Comments APPEARANCE (test code = Clear Clear 9035081742) COLOR (test code = Yellow Yellow 2810783289) PH (test code = 4.8-8.0 2966107855) SP GRAVITY (test code = 1.003-1.030 1844009020) GLU U QUAL (test code = Normal Normal 3506118155) BLOOD (test code = Negative Negative 6138855824) KETONES (test code = Negative Negative 0208687902) PROTEIN (test code = 30 mg/dL Negative A 2887-8) UROBILIN (test code = 2.0 mg/dL Normal A 8974652070) BILIRUBIN (test code = Negative Negative 8692634147) NITRITE (test code = Negative Negative 1913808753) LEUK JOVAN (test code = Negative Negative 1208116442) RBC/HPF (test code = <1 See_Comment [Autom ated message] 3233705381) The system [employer] generated this result transmit hiral reference range : 0 - 3 HPF. The refe rence range was not u sed to interpret th is result as normal/abnormal . WBC/HPF (test code = See_Comment [Autom ated message] 2377767488) The system [employer] generated this result transmit hiral reference range : 0 - 5 HPF. The refe rence range was not u sed to interpret th is result as normal/abnormal . BACTERIA (test code = Negative Negative 7582605106) MUCOUS (test code = Slight Negative LPF A 9498927618) SQ EPITH (test code = <1 HPF 3879207425) Lab Interpretation (test Abnormal code = 86625-2) [facility] WITH [id number] 22:12:00 Test Item Value Reference Range Interpretation [...] RDW-SD (test code = 44.6 fL 39-49.9 16751-6) RDW-CV (test code = 13.6 % 12-15.5 788-0) PLT (test code = See_Comment [Automated 777-3) message] The sy stem which generated this result transmitted reference range : 166 - 358 10*3/ ?L. The reference r whitney was not used to interpret this result as normal/abnormal . MPV (test code = 9.0 fL 9.5-12.9 L 38713-7) NRBC/100 WBC (test See_Comment [Automat ed code = 0604893230) message] The system which generated this result transmitted reference range : 0.0 - 10.0 /100 WBCs. The refer ence range was not u sed to interpret th is result as normal/abnormal . NRBC x10^3 (test code <0.01 See_Comment [Auto mated = 4272398690) message] The s ystem which generated this result transmitted reference range : 10*3/?L. The reference range was not used to interpret this result as normal/abnormal . GRAN MAT (NEUT) % 74.6 % (test code = 770-8) IMM GRAN % (test code 0.40 % = 2613861577) LYMPH % (test code = 16.4 % 736-9) MONO % (test code = 7.7 % 5905-5) EOS % (test code = 0.4 % 713-8) BASO % (test code = 0.5 % 706-2) GRAN MAT x10^3(ANC) 7.84 10*3/uL 1.88-7.09 H (test code = 4678701572) IMM GRAN x10^3 (test 0.04 10*3/uL 0-0.06 code = 8990397413) LYMPH x10^3 (test code 1.72 10*3/uL 1.32-3.29 = 731-0) MONO x10^3 (test code 0.81 10*3/uL 0.33-0.92 = 742-7) EOS x10^3 (test code = 0.04 10*3/uL 0.03-0.39 711-2) BASO x10^3 (test code 0.05 10*3/uL 0.01-0.07 = 704-7) Lab Interpretation Abnormal (test code = 91712-7) [facility] [id number] 21:59:00 Test Item Value Reference Range Interpretation Comments POCT PREG (test code = 1605) negative Lab Interpretation (test code = Normal 70114-4) [facility]"
[2022-09-25 12:26] LABS: Urine Blood 3+ (Negative); Urine Glucose Negative (Negative); Urine Protein 3+ (Negative)
[2022-09-25 12:32] LABS: Urine Bacteria None Seen /HPF (<20); Urine RBC >50 /HPF (None Seen); Urine WBC Clump Many /HPF (None Seen)
--- NOTE | 2022-09-25 12:52 | RAD REPORT ---
EXAM DESCRIPTION: US - BREAST/AXILLA, LIMITED - 09/25/2022 12:26 pm CLINICAL HISTORY: Palpable mass 12 o'clock left breast COMPARISON: None FINDINGS: Limited sonography upper left breast performed in area of palpable abnormality. At the are a of concern, there is an approximately 3.4 centimeter oval heterogeneous, mostly hyperechoic mass. Lipoma or hamartoma would be possible. Atypical fibroadenoma is possible. Fibroadenomas are typically hypoechoic. IMPRESSION: As detailed above, there is an approximately 3.4 centimeter mostly hyperechoic mass 12 o 'clock left breast corresponding to the palpable abnormality.
[2022-09-25 12:54] LABS: Hematocrit 36.8 % (36.0-45.0); Lymphocytes % 14.4 % (15.3-44.8); MPV 6.8 fL (7.6-11.3); RBC Red Blood Cell Count 4.18 M/uL (3.86-4.86)
[2022-09-25] MEDS ORDERED: NA CHLORIDE 0.9% 1,000 ML ONE (12:57)
[2022-09-25] MEDS ORDERED: KETOROLAC 30 MG/ML INJ ONE (12:57)
--- NOTE | 2022-09-25 12:59 | RAD REPORT ---
EXAM DESCRIPTION: CT - Stone Protocol - 09/25/2022 12:42 pm CLINICAL HISTORY: Abdominal pain. Flank pain COMPARISON: 2014 TECHNIQUE: Computed axial tomography of the abdomen pelvis was obtained without oral or IV contrast. Lack of IV and oral contrast limits evaluation of solid organs, appendix, bowel, and vessels. Pettit l reformatted images were obtained and reviewed. All CT scans are performed using dose optimization technique as appropriate and may include automated exposure control or mA/KV adjustment according to patient size. FINDINGS: Mild tree-in-bud opacities left lower lobe A renal calculus is not seen. An ureteral calculus is not noted. A bladder calculus is not present. N o hydronephrosis Liver is mildly to moderately enlarged. Spleen, pancreas and adrenals appear grossly normal There is no evidence of diverticulitis. The appendix appears normal No adnexal mass. IUD within the uterus IMPRESSION: Negative for a genitourinary calculus Mild tree-in-bud opacities left lower lobe may indicate an atypical infection or pneumonitis Hepatomegaly
[2022-09-25 13:06] LABS: Bilirubin Total 0.3 mg/dL (0.2-1.0); Potassium 4.2 mmol/L (3.5-5.1); Protein, Total 6.5 g/dL (6.4-8.2)
--- NOTE | 2022-09-25 14:10 | EDPHYS ---
Physician Documentation [facility] Name: Jewels Webber Age: 32 yrs Sex: Female : 1990 Arrival Date: 09/25/2022 Time: 11:40 Bed 16 Private MD: ED Physician Bao Cook HPI: 09/25 13:55 This 32 yrs old Female presents to ER via Ambulatory with complaints of Abdominal Pain, kb Back Pain. 13:55 Patient is a 32-year-old female who presents for 3 days of dysuria, frequency, small kb amounts of urine, urgency with right flank and abdominal pain that started today. Denies fever, nausea, vomiting, diarrhea, constipation. Symptoms alleviated by nothing, aggravated by urinating. Patient has had similar symptoms in the past related to UTIs.. 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 - Social history:: Smoking status: Patient reports the use of cigarette tobacco products, smokes one-half pack cigarettes per day. ROS: 13:55 Constitutional: Negative for fever, chills, and weight loss. kb 13:55 Abdomen/GI: Positive for abdominal pain. 13:55 : Positive for urinary symptoms, flank pain, urinary frequency, small amounts, burning with urination. 13:55 Skin: Positive for Lump to left breast. 13:55 All other systems are negative. Exam: 13:55 Constitutional: This is a well developed, well nourished patient who is awake, alert, kb and in no acute distress. Head/Face: Normocephalic, atraumatic. ENT: Moist Mucous membranes Cardiovascular: Regular rate and rhythm with a normal S1 and S2. No gallops, murmurs, or rubs. No pulse deficits. Respiratory: Respirations even and unlabored. No increased work of breathing. Talking in full sentences Skin: Warm, dry with normal turgor. Normal color. MS/ Extremity: Pulses equal, no cyanosis. Neurovascular intact. Full, normal range of motion. Neuro: Awake and alert, GCS 15, oriented to person, place, time, and situation. Moves all extremities. Normal gait. 13:55 Chest/axilla: Inspection: normal, Breasts: mass(es), that is moderate-sized, in the left breast, that is non-tender, At 12 o'clock. 13:55 Abdomen/GI: Inspection: abdomen appears normal, Bowel sounds: normal, Palpation: soft, in all quadrants, mild abdominal tenderness, in the right lower quadrant. 13:55 Abdomen/GI: Palpation: Palpation to right upper quadrant produces pain to right flank. 13:55 Back: CVA tenderness, is absent, Palpation of right flank produces feeling of urgency. Vital Signs: 12:01 BP 124 / 75; Pulse 120; Resp 20; Temp 98.6(TE); Pulse Ox 100% on R/A; Weight 74.84 kg; ss Height 6 ft. 0 in. (182.88 cm); Pain 5/10; 13:57 BP 115 / 75; Pulse 87; Resp 16; Pulse Ox 94% ; jh5 12:01 Body Mass Index 22.38 (74.84 kg, 182.88 cm) MDM: 11:51 Patient medically screened. kb 12:00 ED course: Patient is a 32-year-old female who presents with urinary symptoms and pain. kb Physical exam findings positive for right lower quadrant tenderness and mass at 12:00 to left breast. Differential diagnoses include kidney stone, pyelonephritis, UTI. Will obtain serum labs, urine and CT scan.. 13:54 Data reviewed: vital signs, nurses notes. kb 13:58 Counseling: I had a detailed discussion with the patient and/or guardian regarding: the kb historical points, exam findings, and any diagnostic results supporting the discharge/admit diagnosis, lab results, radiology results, the need for outpatient follow up, a family practitioner, to return to the emergency department if symptoms worsen or persist or if there are any questions or concerns that arise at home. 14:07 ED course: CT scan reveals atypical infection to left lower lobe of the lung, no acute kb abdominal finding. Elevation in white blood cell count with white cells in the urine, as well as, urinary symptoms indicative of UTI. Will treat with Augmentin to cover lung findings as well. Patient educated on ultrasound findings regarding the mass to left breast. Patient will follow-up with gynecology for further evaluation.. 14:11 Care significantly affected by the following Social Determinants of Health: Poor access kb to healthcare and/or lack of insurance. 09/25 12:00 Order name: CBC with Diff; Complete Time: 12:57 kb 09/25 12:00 Order name: CMP; Complete Time: 13:06 kb 09/25 12:00 Order name: Lipase; Complete Time: 13:06 kb 09/25 12:00 Order name: Urine Microscopic Only; Complete Time: 12:35 kb 09/25 12:27 Order name: Urine Dipstick-Ancillary; Complete Time: 12:28 EDMS 09/25 12:27 Order name: Urine --Ancillary (enter results); Complete Time: 12:35 ss 09/25 12:00 Order name: IV Saline Lock; Complete Time: 12:52 kb 09/25 12:00 Order name: Labs collected and sent; Complete Time: 12:52 kb 09/25 12:00 Order name: US Extrmty Nonvasular Limited kb 09/25 12:00 Order name: CT Stone Protocol; Complete Time: 13:05 kb 09/25 12:04 Order name: BREAST/AXILLA, LIMITED; Complete Time: 12:57 EDMS 09/25 12:35 Order name: Urine Culture EDMA 09/25 12:00 Order name: Urine Dipstick-Ancillary (obtain specimen); Complete Time: 12:26 kb 09/25 12:00 Order name: Urine Test (obtain specimen); Complete Time: 12:26 kb 09/25 13:51 Order name: Vital Signs; Complete Time: 13:58 kb Administered Medications: 13:01 Drug: NS 0.9% 1000 ml Route: IV; Rate: 1 bolus; Site: left antecubital; 5 13:01 Drug: TORadol - (ketorolac) 15 mg Route: IVP; Site: left antecubital; jh5 Disposition: 14:50 Co-signature as Attending Physician, Bao Cook MD I agree with the assessment and kdr plan of care. Disposition Summary: 09/25/22 14:10 Discharge Ordered Location: Home kb Condition: Stable kb Diagnosis - UTI/ Urinary tract infection, site not specified kb - Left Breast mass kb - Pneumonia, unspecified organism kb Followup: kb - With: Emergency Department - When: As needed - Reason: Worsening of condition Followup: kb - With: Private Physician - When: 2 - 3 days - Reason: Recheck today's complaints, Continuance of care, Re-evaluation by your physician Discharge Instructions: - Discharge Summary Sheet kb - Urinary Tract Infection, Adult, [id number] kb - Community-Acquired Pneumonia, Adult, [id number] kb Forms: - Medication Reconciliation Form kb - Thank You Letter kb - Antibiotic Education kb - Prescription Opioid Use kb Prescriptions: - Augmentin 875-125 mg Oral Tablet - take 1 tablet by ORAL route every 12 hours for 10 days; 20 tablet; Refills: 0, kb Product Selection Permitted Signatures: Dispatcher [employer] EDMS Amara Da Silva, PROOF READER-C PROOF READER-Bao Olivier MD MD kdr Mari Piper RN RN ss Carmen Morgan RN RN jh5 Corrections: (The following items were deleted from the chart) 14:07 13:58 ED course: Patient is a 32-year-old female who presents with urinary symptoms and kb pain. Physical exam findings positive for right lower quadrant tenderness and mass. kb
--- NOTE | 2022-09-25 14:10 | ER ---
Nurse's Notes [facility] Name: Jewels Webber Age: 32 yrs Sex: Female : 1990 Arrival Date: 09/25/2022 Time: 11:40 Bed 16 Private MD: Diagnosis: UTI/ Urinary tract infection, site not specified;Left Breast mass;Pneumonia, unspecified organism Presentation: 09/25 12:01 Chief complaint: Patient states: burning with urination, frequency and urgency that ss began 3 days ago. Also states she would like to have a lump to her L breast examined. Coronavirus screen: Client denies travel out of the [place] in the last 14 days. Ebola Screen: Patient denies exposure to infectious person. Patient denies travel to an Ebola-affected area in the 21 days before illness onset. Initial Sepsis Screen: Does the patient meet any 2 criteria? No. Patient's initial sepsis screen is negative. Does the patient have a suspected source of infection? No. Patient's initial sepsis screen is negative. Risk Assessment: Do you want to hurt yourself or someone else? Patient reports no desire to harm self or others. Onset of symptoms was September 20, 2022. 12:01 Method Of Arrival: Ambulatory ss 12:01 Acuity: DANIEL 3 ss Triage Assessment: 12:48 General: Appears in no apparent distress. slender, unkempt, Behavior is inappropriate [facility] for age. Pain: Complains of pain in abdomen. GI: Reports lower abdominal pain, upper abdominal pain. 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 - Social history:: Smoking status: Patient reports the use of cigarette tobacco products, smokes one-half pack cigarettes per day. Screenin:47 [facility] ED Fall Risk Assessment (Adult) History of falling in the last 3 months, [facility] including since admission No falls in past 3 months (0 pts) Confusion or Disorientation No (0 pts) Intoxicated or Sedated No (0 pts) Impaired Gait No (0 pts) Mobility Assist Device Used No (0 pt) Altered Elimination No (0 pt) Score/Fall Risk Level 0 - 2 = Low Risk. Abuse screen: Denies threats or abuse. Denies injuries from another. Nutritional screening: No deficits noted. Tuberculosis screening: No symptoms or risk factors identified. Assessment: 12:44 Reassessment: pt exhibits erratic behavior; flings her body all over the stretcher. jh5 14:45 GI: Bowel sounds present X 4 quads. Abd is soft and non tender. 5 Vital Signs: 12:01 BP 124 / 75; Pulse 120; Resp 20; Temp 98.6(TE); Pulse Ox 100% on R/A; Weight 74.84 kg; ss Height 6 ft. 0 in. (182.88 cm); Pain 5/10; 13:57 BP 115 / 75; Pulse 87; Resp 16; Pulse Ox 94% ; jh5 12:01 Body Mass Index 22.38 (74.84 kg, 182.88 cm) ED Course: 11:40 Patient arrived in ED. as 11:40 Amara Da Silva FNP-C is [facility]. kb 11:40 Bao Cook MD is Attending Physician. kb 12:03 Triage completed. ss 12:04 Arm band placed on right wrist. ss 12:28 BREAST/AXILLA, LIMITED In Process Unspecified. EDMS 12:38 Inserted saline lock: 20 gauge in left antecubital area, using aseptic technique. jh5 12:44 CT Stone Protocol In Process Unspecified. EDMS 12:47 Patient has correct armband on for positive identification. Bed in low position. Call [facility] light in reach. Side rails up X 1. 12:47 No provider procedures requiring assistance completed. jh5 14:46 IV discontinued, intact, bleeding controlled, No redness/swelling at site. Pressure 5 dressing applied. Administered Medications: 13:01 Drug: NS 0.9% 1000 ml Route: IV; Rate: 1 bolus; Site: left antecubital; jh5 13:01 Drug: TORadol - (ketorolac) 15 mg Route: IVP; Site: left antecubital; 5 Medication: 12:48 VIS not applicable for this client. 5 Outcome: 14:10 Discharge ordered by . kb 14:45 Discharged to home jh5 14:45 Condition: good 14:45 Discharge instructions given to patient, Instructed on discharge instructions, follow up and referral plans. medication usage, safety practices, Demonstrated understanding of instructions, follow-up care, medications, Prescriptions given X 1. 14:46 Patient left the ED. jh5 Signatures: Dispatcher [employer] Amara Rios, ALFREDO-Miguelito FUENTES-Chelsey Cason Shelby, RN RN Carmen Morgan RN RN jh5
[2022-09-25 15:14] VITALS: TEMP 98.6
[2022-09-25 15:15] VITALS: BP 115/75; O2SAT 94
== END 2022-09-25 14:46 | disposition home or self-care (01) ==
LOC: ER 11:37
DX: N39.0 Urinary tract infection, site not specified (principal); J18.9 Pneumonia, unspecified organism; N63.0 Unspecified lump in unspecified breast; F17.210 Nicotine dependence, cigarettes, uncomplicated
CPT/HCPCS: 36415; 74176; 76377; 76642; 80053; 81003; 81015; 81025; 83690; 85025; 87086; 87088; J7030